=== PATIENT | male | born 2000 | race Caucasian/White ===

== ENCOUNTER 2023-07-04 17:56 | Emergency (ER) | payer OTHER, SELFPAY ==
--- OUTSIDE RECORDS SUMMARY | 2023-07-04 18:01 | XMS REPORT | Continuity of Care Document ---
:2000 Author Organization [facility] t Address [address] [place] [address] Care Team Providers Name Role Phone Cassie Joshi MD Primary Care Physician [phone] JM HOLLAND Attending Clinician Unavailable RADHA MIMS Attending Clinician Unavailable JACOB RICCI Attending Clinician Unavailable Radhames ACUTE SPECIALISTJacob Attending Clinician UNKNOWN, ATTENDING Attending Clinician Unavailable CASSIE JOSHI Attending Clinician Unavailable Radha Fuentes Attending Clinician JAYLIN MCCLENDON Attending Clinician Unavailable Jaylin Mcclendon PA-C Attending Clinician Unknown, Attending Attending Clinician Unavailable REEMA TEIXEIRA Attending Clinician Unavailable Reema Teixeira MD Attending Clinician [facility] [place] Attending Clinician 2, [facility] Attending Clinician Unavailable Nurse, [facility] Attending Clinician Unavailable Doctor Unassigned, [place] Attending Clinician Unavailable CHRISTINA ESTRELLA Attending Clinician Unavailable Christina Estrella MD Attending Clinician Misael Thornton RN Attending Clinician Unavailable ZAKIA PARKER Attending Clinician Unavailable Zakia Parker MD Attending Clinician DESIRE LOWERY Attending Clinician Unavailable Desire Gross Attending Clinician [phone] FRANK ANDRES Attending Clinician Unavailable Frank Connors Attending Clinician King JET MD, James C Attending Clinician CASSIE MCCLELLAND III Attending Clinician Unavailable GABRIELA ESPINOZA Attending Clinician Unavailable DayGabriela Dowell Attending Clinician RADIOLOGY Attending Clinician Unavailable Radiology Attending Clinician Unavailable 1, [facility] Attending Clinician Unavailable Dereck Hernandez MD Attending Clinician Lab, [facility] [place] Attending Clinician Unavailable Cassie Joshi MD Attending Clinician KAYE WU Attending Clinician Unavailable Only, Adc Pob2 Test Attending Clinician Unavailable Kaye Wu MD Attending Clinician Bert Toscano DO Attending Clinician BERT TOSCANO Attending Clinician Unavailable CHRISTY ROMAN Attending Clinician Unavailable ABA MOSER Attending Clinician Unavailable DESIRE LOWERY Admitting Clinician Unavailable Payers Payer Name Policy Type Policy Number Effective Date Expiration Date S corrie [facility] [id number] 2021 00:00:00 [facility] [id number] 2018 CHOICE MEDICAID 00:00:00 Problems Condition Condition Condition Status Onset Resolution Last Treating Co mments Source Name Details Category Date Date Treatment Clinician Date No known No known Disease Unive rs active active ity of problems problems [facility] [place] [facility] Allergies, Adverse Reactions, Alerts Allergy Allergy Status Severity Reaction(s) Onset Inactive Treating Comm ents Source Name Type Date Date Clinician EGG DRUG Active High Hives Univers INGREDI 10-13 ity of 00:00: [place] [facility] PEANUT DRUG Active High Anaphylaxis Unive rs INGREDI 10-13 ity of 00:00: [place] [address] [facility] Egg Propensi Active Hives Univers ty to 10-13 ity of adverse 00:00: reaction 00 Medical s Branch Peanut Propensi Active Anaphylaxis Uni vers ty to 10-13 ity of adverse 00:00: [place] reaction 00 [facility] Branch NO KNOWN Drug Active Univers ALLERGIE Class ity of S [facility] [place] [facility] Social History Social Habit Start Date Stop Date Quantity Comments Source History of tobacco Cigarette Smoker [place] of use [facility] [place] [facility] Gender identity [facility]it y [facility] Social 2023-02-22 2023-02-22 Univers ity of function 00:00:00 00:00:00 [facility] [place] [facility] Exposure to 2023-01-24 2023-02-03 Not sure [facility] SARS-CoV-2 (event) 00:00:00 16:14:00 [facility] [place] [facility] Alcohol intake 2021-04-30 2021-04-30 Ex-drinker [facility] 00:00:00 00:00:00 (finding) [facility] [place] [facility] Cigarettes smoked 2021-04-23 2021-04-23 [facility] it of current (pack per 00:00:00 00:00:00 [facility] ) - Reported Branch Tobacco use and 2021-04-23 2021-04-23 Smokeless Universit y of exposure 00:00:00 00:00:00 tobacco non-user [facility] Sex Assigned At [birth year] Universit y of 00:00:00 00:00:00 [facility] [place] [facility] Smoking Status Start Date Stop Date Source Smokes tobacco daily 2021-04-23 00:00:00 [facility] Medications Ordered Filled Start Stop Current Ordering Indication Dosage Frequency Signature Comments Components Source Medication Medication Date Date Medication? Clinician (SIG) Name Name methylPREDN Yes [id number] Take by Univers ISolone 03-19 mouth ity of (MEDROL, 00:00: SEE-INSTRU Jose Armando as MARTIN,) 4 mg 00 CTIONS. Medica l tablets follow Branch package directions methylPREDN 2022-0 Yes [id number] Take by Univers ISolone 03-19 mouth ity of (MEDROL, 00:00: SEE-INSTRU Jose Armando as MARTIN,) 4 mg 00 CTIONS. Medica l tablets follow Branch package directions methylPREDN 2022-0 Yes [id number] Take by Univers ISolone 03-19 mouth ity of (MEDROL, 00:00: SEE-INSTRU Jose Armando as MARTIN,) 4 mg 00 CTIONS. Medica l tablets follow Branch package directions amoxicillin 2022- No [id number] 1{tbl} Take 1 Univers -clavulanat 7-07 07-18 tablet by it y of e 00:00: 04:59 mouth in [place] (AUGMENTIN) 00 :00 the Medical 875-125 mg morning Branch per tablet and 1 tablet in the evening. Do all this for 10 days. amoxicillin 2022-0 2022- No [id number] 1{tbl} Take 1 Univers -clavulanat 7-07 07-18 tablet by it y of e 00:00: 04:59 mouth in [place] (AUGMENTIN) 00 :00 the Medical 875-125 mg morning Branch per tablet and 1 tablet in the evening. Do all this for 10 days. busPIRone 5 2022-0 Yes [id number] 5mg Take 1 Univers mg tablet 6-12 tablet by ity o f 00:00: mouth (two) Medical times Branch daily as needed for Other (anxiety). busPIRone 5 2022-0 Yes [id number] 5mg Take 1 Univers mg tablet 6-12 tablet by ity o f 00:00: mouth (two) Medical times Branch daily as needed for Other (anxiety). busPIRone 5 2022-0 Yes [id number] 5mg Take 1 Univers mg tablet 6-12 tablet by ity o f 00:00: mouth (two) Medical times Branch daily as needed for Other (anxiety). busPIRone 5 2022-0 Yes [id number] 5mg Take 1 Univers mg tablet 6-12 tablet by ity o f 00:00: mouth (two) Medical times Branch daily as needed for Other (anxiety). busPIRone 5 2022-0 Yes [id number] 5mg Take 1 Univers mg tablet 6-12 tablet by ity o f 00:00: mouth (two) Medical times Branch daily as needed for Other (anxiety). busPIRone 5 2022-0 Yes [id number] 5mg Take 1 Univers mg tablet 6-12 tablet by ity o f 00:00: mouth (two) Medical times Branch daily as needed for Other (anxiety). busPIRone 5 2022-0 Yes [id number] 5mg Take 1 Univers mg tablet 6-12 tablet by ity o f 00:00: mouth 2 [place] 00 (two) Medical times Branch daily as needed for Other (anxiety). nicotine 2022- No [id number] 1{patch Apply 1 Univers mg/24 hr 6-12 07-13 } Patch to ity of patch 00:00: 04:59 area(s) [place] 00 :00 every 24 Medical (twenty-fo Branch ur) hours for 30 days. nicotine 14 2022- No [id number] 1{patch Apply 1 Univers mg/24 hr 6-12 07-13 } Patch to ity of patch 00:00: 04:59 area(s) [place] 00 :00 every 24 Medical (twenty-fo Branch ur) hours for 30 days. nicotine 7 2022- No [id number] 1{patch Apply 1 Univers mg/24 hr 6-12 07-13 } Patch to ity of patch 00:00: 04:59 area(s) [place] 00 :00 every 24 Medical (twenty-fo Branch ur) hours for 30 days. nicotine 2022- No [id number] 1{patch Apply 1 Univers mg/24 hr 6-12 07-13 } Patch to ity of patch 00:00: 04:59 area(s) [place] 00 :00 every 24 Medical (twenty-fo Branch ur) hours for 30 days. nicotine No [id number] 1{patch Apply 1 Univers mg/24 hr 6-12 07-13 } Patch to ity of patch 00:00: 04:59 area(s) [place] 00 :00 every 24 Medical (twenty-fo Branch ur) hours for 30 days. nicotine 2022- No [id number] 1{patch Apply 1 Univers mg/24 hr 6-12 07-13 } Patch to ity of patch 00:00: 04:59 area(s) [place] 00 :00 every 24 Medical (twenty-fo Branch ur) hours for 30 days. nicotine 2022- No [id number] 1{patch Apply 1 Univers mg/24 hr 6-12 07-13 } Patch to ity of patch 00:00: 04:59 area(s) [place] 00 :00 every 24 Medical (twenty-fo Branch ur) hours for 30 days. nicotine 14 2022- No [id number] 1{patch Apply 1 Univers mg/24 hr 6-12 07-13 } Patch to ity of patch 00:00: 04:59 area(s) [place] 00 :00 every 24 Medical (twenty-fo Branch ur) hours for 30 days. nicotine 7 2022- No [id number] 1{patch Apply 1 Univers mg/24 hr 6-12 07-13 } Patch to ity of patch 00:00: 04:59 area(s) [place] 00 :00 every 24 Medical (twenty-fo Branch ur) hours for 30 days. nicotine 2022- No [id number] 1{patch Apply 1 Univers mg/24 hr 6-12 07-13 } Patch to ity of patch 00:00: 04:59 area(s) [place] 00 :00 every 24 Medical (twenty-fo Branch ur) hours for 30 days. nicotine 14 2022- No [id number] 1{patch Apply 1 Univers mg/24 hr 6-12 07-13 } Patch to ity of patch 00:00: 04:59 area(s) [place] 00 :00 every 24 Medical (twenty-fo Branch ur) hours for 30 days. nicotine 7 No [id number] 1{patch Apply 1 Univers mg/24 hr 6-12 07-13 } Patch to ity of patch 00:00: 04:59 area(s) [place] 00 :00 every 24 Medical (twenty-fo Branch ur) hours for 30 days. nicotine 2022- No [id number] 1{patch Apply 1 Univers mg/24 hr 6-12 07-13 } Patch to ity of patch 00:00: 04:59 area(s) [place] 00 :00 every 24 Medical (twenty-fo Branch ur) hours for 30 days. nicotine 14 2022- No [id number] 1{patch Apply 1 Univers mg/24 hr 6-12 07-13 } Patch to ity of patch 00:00: 04:59 area(s) [place] 00 :00 every 24 Medical (twenty-fo Branch ur) hours for 30 days. nicotine 7 2022- No [id number] 1{patch Apply 1 Univers mg/24 hr 6-12 07-13 } Patch to ity of patch 00:00: 04:59 area(s) [place] 00 :00 every 24 Medical (twenty-fo Branch ur) hours for 30 days. nicotine 21 2022- No [id number] 1{patch Apply 1 Univers mg/24 hr 02-22-13 } Patch to ity of patch 00:00: 04:59 area(s) [place] 00 :00 every 24 Medical (twenty-fo Branch ur) hours for 30 days. nicotine 14 2022-2022- No [id number] 1{patch Apply 1 Univers mg/24 hr 02-22-13 } Patch to ity of patch 00:00: 04:59 area(s) [place] 00 :00 every 24 Medical (twenty-fo Branch ur) hours for 30 days. nicotine 7 2022-2022- No [id number] 1{patch Apply 1 Univers mg/24 hr 02-22-13 } Patch to ity of patch 00:00: 04:59 area(s) [place] 00 :00 every 24 Medical (twenty-fo Branch ur) hours for 30 days. buPROPion 2022-2022- No [id number] 150mg Take 1 Univers SR 5-26 08-25 tablet by ity of (WELLBUTRIN 00:00: 04:59 mouth in [place] SR) 150 mg 00 :00 the Medical SR tablet morning Branch and 1 tablet in the evening. Do all this for 90 days. buPROPion 2022-2022- No [id number] 150mg Take 1 Univers SR 5-26 08-25 tablet by ity of (WELLBUTRIN 00:00: 04:59 mouth in [place] SR) 150 mg 00 :00 the Medical SR tablet morning Branch and 1 tablet in the evening. Do all this for 90 days. buPROPion 2022-0 2022- No [id number] 150mg Take 1 Univers SR 5-26 08-25 tablet by ity of (WELLBUTRIN 00:00: 04:59 mouth in [place] SR) 150 mg 00 :00 the Medical SR tablet morning Branch and 1 tablet in the evening. Do all this for 90 days. buPROPion 2022-0 2022- No [id number] 150mg Take 1 Univers SR 5-26 08-25 tablet by ity of (WELLBUTRIN 00:00: 04:59 mouth in [place] SR) 150 mg 00 :00 the Medical SR tablet morning Branch and 1 tablet in the evening. Do all this for 90 days. buPROPion 2022-0 2022- No [id number] 150mg Take 1 Univers SR 5-26 08-25 tablet by ity of (WELLBUTRIN 00:00: 04:59 mouth in [place] SR) 150 mg 00 :00 the Medical SR tablet morning Branch and 1 tablet in the evening. Do all this for 90 days. buPROPion 2022-0 2022- No [id number] 150mg Take 1 Univers SR 5-26 08-25 tablet by ity of (WELLBUTRIN 00:00: 04:59 mouth in [place] SR) 150 mg 00 :00 the Medical SR tablet morning Branch and 1 tablet in the evening. Do all this for 90 days. buPROPion 2022-0 2022- No [id number] 150mg Take 1 Univers SR 5-26 08-25 tablet by ity of (WELLBUTRIN 00:00: 04:59 mouth in [place] SR) 150 mg 00 :00 the Medical SR tablet morning Branch and 1 tablet in the evening. Do all this for 90 days. buPROPion 2022-0 2022- No [id number] 150mg Take 1 Univers SR 5-26 06-12 tablet by ity of (WELLBUTRIN 00:00: 00:00 mouth in [place] SR) 150 mg 00 :00 the Medical SR tablet morning Branch and 1 tablet in the evening. Do all this for 90 days. buPROPion 2022-0 2022- No [id number] 150mg Take 1 Univers SR 5-26 06-12 tablet by ity of (WELLBUTRIN 00:00: 00:00 mouth in [place] SR) 150 mg 00 :00 the Medical SR tablet morning Branch and 1 tablet in the evening. Do all this for 90 days. albuterol Yes [id number] 2{puff} Inhale 2 Univers 90 5-25 Puffs ity of mcg/actuati 00:00: every 6 Jose Armando as on inhaler 00 (six) Medical hours as Branch needed for Wheezing or Shortness of Breath. albuterol Yes [id number] 2{puff} Inhale 2 Univers 90 5-25 Puffs ity of mcg/actuati 00:00: every 6 Jose Armando as on inhaler 00 (six) Medical hours as Branch needed for Wheezing or Shortness of Breath. albuterol Yes [id number] 2{puff} Inhale 2 Univers 90 5-25 Puffs ity of mcg/actuati 00:00: every 6 Jose Armando as on inhaler 00 (six) Medical hours as Branch needed for Wheezing or Shortness of Breath. albuterol Yes [id number] 2{puff} Inhale 2 Univers 90 5-25 Puffs ity of mcg/actuati 00:00: every 6 Jose Armando as on inhaler 00 (six) Medical hours as Branch needed for Wheezing or Shortness of Breath. albuterol Yes [id number] 2{puff} Inhale 2 Univers 90 5-25 Puffs ity of mcg/actuati 00:00: every 6 Jose Armando as on inhaler 00 (six) Medical hours as Branch needed for Wheezing or Shortness of Breath. albuterol Yes [id number] 2{puff} Inhale 2 Univers 90 5-25 Puffs ity of mcg/actuati 00:00: every 6 Jose Armando as on inhaler 00 (six) Medical hours as Branch needed for Wheezing or Shortness of Breath. albuterol Yes [id number] 2{puff} Inhale 2 Univers 90 5-25 Puffs ity of mcg/actuati 00:00: every 6 Jose Armando as on inhaler 00 (six) Medical hours as Branch needed for Wheezing or Shortness of Breath. albuterol Yes [id number] 2{puff} Inhale 2 Univers 90 5-25 Puffs ity of mcg/actuati 00:00: every 6 Jose Armando as on inhaler 00 (six) Medical hours as Branch needed for Wheezing or Shortness of Breath. albuterol Yes [id number] 2{puff} Inhale 2 Univers 90 5-25 Puffs ity of mcg/actuati 00:00: every 6 Jose Armando as on inhaler 00 (six) Medical hours as Branch needed for Wheezing or Shortness of Breath. albuterol Yes [id number] 2{puff} Inhale 2 Univers 90 5-25 Puffs ity of mcg/actuati 00:00: every 6 Jose Armando as on inhaler 00 (six) Medical hours as Branch needed for Wheezing or Shortness of Breath. albuterol Yes [id number] 2{puff} Inhale 2 Univers 90 5-25 Puffs ity of mcg/actuati 00:00: every 6 Jose Armando as on inhaler 00 (six) Medical hours as Branch needed for Wheezing or Shortness of Breath. albuterol Yes [id number] 2{puff} Inhale 2 Univers 90 5-25 Puffs ity of mcg/actuati 00:00: every 6 Jose Armando as on inhaler 00 (six) Medical hours as Branch needed for Wheezing or Shortness of Breath. albuterol Yes [id number] 2{puff} Inhale 2 Univers 90 5-25 Puffs ity of mcg/actuati 00:00: every 6 Jose Armando as on inhaler 00 (six) Medical hours as Branch needed for Wheezing or Shortness of Breath. albuterol Yes [id number] 2{puff} Inhale 2 Univers 90 5-25 Puffs ity of mcg/actuati 00:00: every 6 Jose Armando as on inhaler 00 (six) Medical hours as Branch needed for Wheezing or Shortness of Breath. albuterol Yes [id number] 2{puff} Inhale 2 Univers 90 5-25 Puffs ity of mcg/actuati 00:00: every 6 Jose Armando as on inhaler 00 (six) Medical hours as Branch needed for Wheezing or Shortness of Breath. albuterol Yes [id number] 2{puff} Inhale 2 Univers 90 5-25 Puffs ity of mcg/actuati 00:00: every 6 Jose Armando as on inhaler 00 (six) Medical hours as Branch needed for Wheezing or Shortness of Breath. omeprazole Yes TAKE 1 Unive rs 40 mg 5-04 CAPSULE BY ity of capsule 00:00: MOUTH ONCE [place] DAILY, DO Medical NOT CRUSH Branch OR CHEW omeprazole Yes TAKE 1 Unive rs 40 mg 5-04 CAPSULE BY ity of capsule 00:00: MOUTH ONCE [place] 00 DAILY, DO Medical NOT CRUSH Branch OR CHEW omeprazole Yes TAKE 1 Unive rs 40 mg 5-04 CAPSULE BY ity of capsule 00:00: MOUTH ONCE [place] 00 DAILY, DO Medical NOT CRUSH Branch OR CHEW azelastine Yes [id number] 1{spray Use 1 Univers 137 mcg 2-13 } [place] in ity of (0.1 %) 00:00: each [place] nasal spray 00 nostril in Me dical the Branch morning and 1 [place] in the evening. Use in each nostril as directed fluticasone 2022-0 Yes [id number] 1{spray Use 1 Univers propionate 2-13 } [place] in ity o f 50 00:00: each [place] mcg/actuati 00 nostril in Me dical on nasal the Branch spray morning. ibuprofen 2022-0 Yes [id number] 600mg Take 1 U nivers 600 mg 2-13 tablet by ity of tablet 00:00: mouth [place] 00 every 6 Medical (six) Branch hours as needed for Pain (scale 4-6) or Pain (scale 1-3). maalox/diph 2022-0 Yes [id number] 5mL Take 5 mL Univers enhydrAMINE 2-13 by mouth 3 it y of :lidocaine2 00:00: (three) Jose Armando as % viscous 00 times Medical 1:1:1 Susp daily as Branc h suspension needed (gargle and spit). azelastine 2022-0 Yes [id number] 1{spray Use 1 Univers 137 mcg 2-13 } [place] in ity of (0.1 %) 00:00: each [place] nasal spray 00 nostril in Mn dical the Branch morning and 1 [place] in the evening. Use in each nostril as directed fluticasone 2022-0 Yes [id number] 1{spray Use 1 Univers propionate 2-13 } [place] in ity o f 50 00:00: each [place] mcg/actuati 00 nostril in Mn dical on nasal the Branch spray morning. ibuprofen 2022-0 Yes [id number] 600mg Take 1 U nivers 600 mg 2-13 tablet by ity of tablet 00:00: mouth [place] 00 every 6 Medical (six) Branch hours as needed for Pain (scale 4-6) or Pain (scale 1-3). maalox/diph 2022-0 Yes [id number] 5mL Take 5 mL Univers enhydrAMINE 2-13 by mouth 3 it y of :lidocaine2 00:00: (three) Jose Armando as % viscous 00 times Medical 1:1:1 Susp daily as Branc h suspension needed (gargle and spit). azelastine 2023-0 Yes [id number] 1{spray Use 1 Univers 137 mcg 2-13 } [place] in ity of (0.1 %) 00:00: each [place] nasal spray 00 nostril in Mn dical the Branch morning and 1 [place] in the evening. Use in each nostril as directed fluticasone 0 Yes [id number] 1{spray Use 1 Univers propionate 2-13 } [place] in ity o f 50 00:00: each [place] mcg/actuati 00 nostril in Mn dical on nasal the Branch spray morning. ibuprofen 0 Yes [id number] 600mg Take 1 U nivers 600 mg 2-13 tablet by ity of tablet 00:00: mouth [place] 00 every 6 Medical (six) Branch hours as needed for Pain (scale 4-6) or Pain (scale 1-3). maalox/diph 0 Yes [id number] 5mL Take 5 mL Univers enhydrAMINE 2-13 by mouth 3 it y of :lidocaine2 00:00: (three) Jose Armando as % viscous 00 times Medical 1:1:1 Susp daily as Branc h suspension needed (gargle and spit). azelastine Yes [id number] 1{spray Use 1 Univers 137 mcg 2-13 } [place] in ity of (0.1 %) 00:00: each [place] nasal spray 00 nostril in Mn dical the Branch morning and 1 [place] in the evening. Use in each nostril as directed fluticasone Yes [id number] 1{spray Use 1 Univers propionate 2-13 } [place] in ity o f 50 00:00: each [place] mcg/actuati 00 nostril in Mn dical on nasal the Branch spray morning. ibuprofen 0 Yes [id number] 600mg Take 1 U nivers 600 mg 2-13 tablet by ity of tablet 00:00: mouth [place] 00 every 6 Medical (six) Branch hours as needed for Pain (scale 4-6) or Pain (scale 1-3). maalox/diph 2022-0 Yes [id number] 5mL Take 5 mL Univers enhydrAMINE 2-13 by mouth 3 it y of :lidocaine2 00:00: (three) Jose Armando as % viscous 00 times Medical 1:1:1 Susp daily as Branc h suspension needed (gargle and spit). azelastine 2022-0 Yes [id number] 1{spray Use 1 Univers 137 mcg 2-13 } [place] in ity of (0.1 %) 00:00: each [place] nasal spray 00 nostril in Me dical the Branch morning and 1 [place] in the evening. Use in each nostril as directed fluticasone 2022-0 Yes [id number] 1{spray Use 1 Univers propionate 2-13 } [place] in ity o f 50 00:00: each [place] mcg/actuati 00 nostril in Me dical on nasal the Branch spray morning. ibuprofen 2022-0 Yes [id number] 600mg Take 1 U nivers 600 mg 2-13 tablet by ity of tablet 00:00: mouth [place] 00 every 6 Medical (six) Branch hours as needed for Pain (scale 4-6) or Pain (scale 1-3). maalox/diph 2022-0 Yes [id number] 5mL Take 5 mL Univers enhydrAMINE 2-13 by mouth 3 it y of :lidocaine2 00:00: (three) Jose Armando as % viscous 00 times Medical 1:1:1 Susp daily as Branc h suspension needed (gargle and spit). azelastine 2022-0 Yes [id number] 1{spray Use 1 Univers 137 mcg 2-13 } [place] in ity of (0.1 %) 00:00: each [place] nasal spray 00 nostril in Mn dical the Branch morning and 1 [place] in the evening. Use in each nostril as directed fluticasone 2022-0 Yes [id number] 1{spray Use 1 Univers propionate 2-13 } [place] in ity o f 50 00:00: each [place] mcg/actuati 00 nostril in Mn dical on nasal the Branch spray morning. ibuprofen 2022-0 Yes [id number] 600mg Take 1 U nivers 600 mg 2-13 tablet by ity of tablet 00:00: mouth [place] 00 every 6 Medical (six) Branch hours as needed for Pain (scale 4-6) or Pain (scale 1-3). maalox/diph 2022-0 Yes [id number] 5mL Take 5 mL Univers enhydrAMINE 2-13 by mouth 3 it y of :lidocaine2 00:00: (three) Jose Armando as % viscous 00 times Medical 1:1:1 Susp daily as Branc h suspension needed (gargle and spit). azelastine 2022-0 Yes [id number] 1{spray Use 1 Univers 137 mcg 2-13 } [place] in ity of (0.1 %) 00:00: each [place] nasal spray 00 nostril in Me dical the Branch morning and 1 [place] in the evening. Use in each nostril as directed fluticasone 2022-0 Yes [id number] 1{spray Use 1 Univers propionate 2-13 } [place] in ity o f 50 00:00: each [place] mcg/actuati 00 nostril in Me dical on nasal the Branch spray morning. ibuprofen 2022-0 Yes [id number] 600mg Take 1 U nivers 600 mg 2-13 tablet by ity of tablet 00:00: mouth [place] 00 every 6 Medical (six) Branch hours as needed for Pain (scale 4-6) or Pain (scale 1-3). maalox/diph 2022-0 Yes [id number] 5mL Take 5 mL Univers enhydrAMINE 2-13 by mouth 3 it y of :lidocaine2 00:00: (three) Jose Armando as % viscous 00 times Medical 1:1:1 Susp daily as Branc h suspension needed (gargle and spit). azelastine 2022-0 Yes [id number] 1{spray Use 1 Univers 137 mcg 2-13 } [place] in ity of (0.1 %) 00:00: each [place] nasal spray 00 nostril in Me dical the Branch morning and 1 [place] in the evening. Use in each nostril as directed fluticasone 2022-0 Yes [id number] 1{spray Use 1 Univers propionate 2-13 } [place] in ity o f 50 00:00: each [place] mcg/actuati 00 nostril in Me dical on nasal the Branch spray morning. ibuprofen 2022-0 Yes [id number] 600mg Take 1 U nivers 600 mg 2-13 tablet by ity of tablet 00:00: mouth [place] 00 every 6 Medical (six) Branch hours as needed for Pain (scale 4-6) or Pain (scale 1-3). maalox/diph 2023-0 Yes [id number] 5mL Take 5 mL Univers enhydrAMINE 2-13 by mouth 3 it y of :lidocaine2 00:00: (three) Jose Armando as % viscous 00 times Medical 1:1:1 Susp daily as Branc h suspension needed (gargle and spit). azelastine Yes [id number] 1{spray Use 1 Univers 137 mcg 2-13 } [place] in ity of (0.1 %) 00:00: each [place] nasal spray 00 nostril in Me dical the Branch morning and 1 [place] in the evening. Use in each nostril as directed fluticasone 0 Yes [id number] 1{spray Use 1 Univers propionate 2-13 } [place] in ity o f 50 00:00: each [place] mcg/actuati 00 nostril in Me dical on nasal the Branch spray morning. ibuprofen Yes [id number] 600mg Take 1 U nivers 600 mg 2-13 tablet by ity of tablet 00:00: mouth [place] 00 every 6 Medical (six) Branch hours as needed for Pain (scale 4-6) or Pain (scale 1-3). maalox/diph Yes [id number] 5mL Take 5 mL Univers enhydrAMINE 2-13 by mouth 3 it y of :lidocaine2 00:00: (three) Jose Armando as % viscous 00 times Medical 1:1:1 Susp daily as Branc h suspension needed (gargle and spit). azelastine 2022- No [id number] 1{spray Use 1 Univers 137 mcg 2-13 05-25 } [place] in ity of (0.1 %) 00:00: 00:00 each [place] nasal spray 00 :00 nostril in Me dical the Branch morning and 1 [place] in the evening. Use in each nostril as directed fluticasone 0 202- No [id number] 1{spray Use 1 Univers propionate 2-13 05-25 } [place] in ity of 50 00:00: 00:00 each [place] mcg/actuati 00 :00 nostril in Me dical on nasal the Branch spray morning. ibuprofen 0 3- No [id number] 600mg Take 1 [facility] 600 mg 2-13 05-25 tablet by ity of tablet 00:00: 00:00 mouth [place] 00 :00 every 6 Medical (six) Branch hours as needed for Pain (scale 4-6) or Pain (scale 1-3). maalox/diph 2022- No [id number] 5mL Take 5 mL [facility] enhydrAMINE 2 05-25 by mouth 3 i ty of :lidocaine2 00:00: 00:00 (three) [place] % viscous 00 :00 times Medical 1:1:1 Susp daily as Branc h suspension needed (gargle and spit). azelastine 2022- No [id number] 1{spray Use 1 [facility] 137 mcg 10-2625 } [place] in ity of (0.1 %) 00:00: 00:00 each [place] nasal spray 00 :00 nostril in Mn dical the Branch morning and 1 [place] in the evening. Use in each nostril as directed fluticasone 2022- No [id number] 1{spray Use 1 [facility] propionate 10-2625 } [place] in ity of 50 00:00: 00:00 each [place] mcg/actuati 00 :00 nostril in Mn dical on nasal the Branch spray morning. ibuprofen 2022- No [id number] 600mg Take 1 [facility] 600 mg 10-26-25 tablet by ity of tablet 00:00: 00:00 mouth [place] 00 :00 every 6 Medical (six) Branch hours as needed for Pain (scale 4-6) or Pain (scale 1-3). maalox/diph 2022- No [id number] 5mL Take 5 mL [facility] enhydrAMINE 10-26-25 by mouth 3 i ty of :lidocaine2 00:00: 00:00 (three) [place] % viscous 00 :00 times Medical 1:1:1 Susp daily as Branc h suspension needed (gargle and spit). meloxicam 2022- No [id number] 15mg Take 1 [facility] 15 mg 10-13 tablet by ity of tablet 00:00: 05:59 mouth in [place] 00 :00 the Medical morning Branch for 30 days. methocarbam 2022- No [id number] 500mg Take 1 [facility] oL 500 mg 10-13 tablet by ity of tablet 00:00: 05:59 mouth [place] 00 :00 every Medical evening Branch for 30 days. meloxicam 2022-2022- No [id number] 15mg Take 1 [facility] 15 mg 10-13- tablet by ity of tablet 00:00: 05:59 mouth in [place] 00 :00 the Medical morning Branch for 30 days. methocarbam 2023-0 2022- No [id number] 500mg Take 1 [facility] oL 500 mg 10-13 tablet by ity of tablet 00:00: 05:59 mouth [place] 00 :00 every Medical evening Branch for 30 days. meloxicam 3-0 2022- No [id number] 15mg Take 1 [facility] 15 mg 10-13- tablet by ity of tablet 00:00: 05:59 mouth in [place] 00 :00 the Medical morning Branch for 30 days. methocarbam 3-0 2022- No [id number] 500mg Take 1 [facility] oL 500 mg 10-13 tablet by ity of tablet 00:00: 05:59 mouth [place] 00 :00 every Medical evening Branch for 30 days. meloxicam 3-0 2022- No [id number] 15mg Take 1 [facility] 15 mg 10-13 tablet by ity of tablet 00:00: 05:59 mouth in [place] 00 :00 the Medical morning Branch for 30 days. methocarbam 2022-0 2022- No [id number] 500mg Take 1 [facility] oL 500 mg 10-13 tablet by ity of tablet 00:00: 05:59 mouth [place] 00 :00 every Medical evening Branch for 30 days. meloxicam 3-0 2022- No [id number] 15mg Take 1 [facility] 15 mg 10-13 tablet by ity of tablet 00:00: 05:59 mouth in [place] 00 :00 the Medical morning Branch for 30 days. methocarbam 3-0 2022- No [id number] 500mg Take 1 [facility] oL 500 mg 10-13 tablet by ity of tablet 00:00: 05:59 mouth [place] 00 :00 every Medical evening Branch for 30 days. meloxicam 2023-0 2022- No [id number] 15mg Take 1 [facility] 15 mg 10-13 tablet by ity of tablet 00:00: 05:59 mouth in [place] 00 :00 the Medical morning Branch for 30 days. methocarbam 2023-0 2023- No [id number] 500mg Take 1 [facility] oL 500 mg 10-13- tablet by ity of tablet 00:00: 05:59 mouth [place] 00 :00 every Medical evening Branch for 30 days. meloxicam 2023-0 202- No [id number] 15mg Take 1 [facility] 15 mg 10-13- tablet by ity of tablet 00:00: 05:59 mouth in [place] 00 :00 the Medical morning Branch for 30 days. methocarbam 2023-0 2022- No [id number] 500mg Take 1 [facility] oL 500 mg 10-13- tablet by ity of tablet 00:00: 05:59 mouth [place] 00 :00 every Medical evening Branch for 30 days. meloxicam 202-0 2022- No [id number] 15mg Take 1 [facility] 15 mg 10-13 tablet by ity of tablet 00:00: 05:59 mouth in [place] 00 :00 the Medical morning Branch for 30 days. methocarbam 2022-0 2022- No [id number] 500mg Take 1 [facility] oL 500 mg 10-13 tablet by ity of tablet 00:00: 05:59 mouth [place] 00 :00 every Medical evening Branch for 30 days. meloxicam 2022-0 2022- No [id number] 15mg Take 1 [facility] 15 mg 10-13 tablet by ity of tablet 00:00: 05:59 mouth in [place] 00 :00 the Medical morning Branch for 30 days. methocarbam 3-0 2022- No [id number] 500mg Take 1 [facility] oL 500 mg 10-13 tablet by ity of tablet 00:00: 05:59 mouth [place] 00 :00 every Medical evening Branch for 30 days. meloxicam 2022-0 2022- No [id number] 15mg Take 1 [facility] 15 mg 10-13- tablet by ity of tablet 00:00: 05:59 mouth in [place] 00 :00 the Medical morning Branch for 30 days. methocarbam 2023-0 2022- No [id number] 500mg Take 1 [facility] oL 500 mg 10-13 tablet by ity of tablet 00:00: 05:59 mouth [place] 00 :00 every Medical evening Branch for 30 days. meloxicam 2023-0 2023- No [id number] 15mg Take 1 [facility] 15 mg 10-13 tablet by ity of tablet 00:00: 05:59 mouth in [place] 00 :00 the Medical morning Branch for 30 days. methocarbam 2023-0 2022- No [id number] 500mg Take 1 [facility] oL 500 mg 10-13 tablet by ity of tablet 00:00: 05:59 mouth [place] 00 :00 every Medical evening Branch for 30 days. meloxicam 2023-0 2022- No [id number] 15mg Take 1 [facility] 15 mg 10-13 tablet by ity of tablet 00:00: 05:59 mouth in [place] 00 :00 the Medical morning Branch for 30 days. methocarbam 2022-0 2022- No [id number] 500mg Take 1 [facility] oL 500 mg 10-13 tablet by ity of tablet 00:00: 05:59 mouth [place] 00 :00 every Medical evening Branch for 30 days. pantoprazol 2023-0 Yes [id number] 40mg Take 1 [facility] e 40 mg EC 1-04 tablet by ity of tablet 00:00: mouth in [place] 00 the Medical morning Branch and 1 tablet in the evening. ondansetron 2023-0 Yes [id number] 4mg Take 1 [facility] 4 mg tablet 1-04 tablet by ity of 00:00: mouth [place] 00 every 8 Medical (eight) Branch hours as needed for Nausea and Vomiting (N/V). pantoprazol 2023-0 Yes [id number] 40mg Take 1 [facility] e 40 mg EC 1-04 tablet by ity of tablet 00:00: mouth in [place] 00 the Medical morning Branch and 1 tablet in the evening. ondansetron 2023-0 Yes [id number] 4mg Take 1 [facility] 4 mg tablet 1-04 tablet by ity of 00:00: mouth [place] 00 every 8 Medical (eight) Branch hours as needed for Nausea and Vomiting (N/V). pantoprazol 2023-0 Yes [id number] 40mg Take 1 [facility] e 40 mg EC 1-04 tablet by ity of tablet 00:00: mouth in [place] 00 the Medical morning Branch and 1 tablet in the evening. ondansetron 2023-0 Yes [id number] 4mg Take 1 [facility] 4 mg tablet 1-04 tablet by ity of 00:00: mouth [place] 00 every 8 Medical (eight) Branch hours as needed for Nausea and Vomiting (N/V). pantoprazol 2023-0 Yes [id number] 40mg Take 1 [facility] e 40 mg EC 1-04 tablet by ity of tablet 00:00: mouth in [place] 00 the Medical morning Branch and 1 tablet in the evening. ondansetron 2023-0 Yes [id number] 4mg Take 1 [facility] 4 mg tablet 1-04 tablet by ity of 00:00: mouth [place] 00 every 8 Medical (eight) Branch hours as needed for Nausea and Vomiting (N/V). pantoprazol 2023-0 Yes [id number] 40mg Take 1 [facility] e 40 mg EC 1-04 tablet by ity of tablet 00:00: mouth in [place] 00 the Medical morning Branch and 1 tablet in the evening. ondansetron 2023-0 Yes [id number] 4mg Take 1 [facility] 4 mg tablet 1-04 tablet by ity of 00:00: mouth [place] 00 every 8 Medical (eight) Branch hours as needed for Nausea and Vomiting (N/V). pantoprazol 2023-0 Yes [id number] 40mg Take 1 [facility] e 40 mg EC 1-04 tablet by ity of tablet 00:00: mouth in [place] 00 the Medical morning Branch and 1 tablet in the evening. ondansetron 2023-0 Yes [id number] 4mg Take 1 [facility] 4 mg tablet 1-04 tablet by ity of 00:00: mouth [place] 00 every 8 Medical (eight) Branch hours as needed for Nausea and Vomiting (N/V). pantoprazol 2023-0 Yes [id number] 40mg Take 1 [facility] e 40 mg EC 1-04 tablet by ity of tablet 00:00: mouth in [place] 00 the Medical morning Branch and 1 tablet in the evening. ondansetron 2023-0 Yes [id number] 4mg Take 1 [facility] 4 mg tablet 1-04 tablet by ity of 00:00: mouth [place] 00 every 8 Medical (eight) Branch hours as needed for Nausea and Vomiting (N/V). pantoprazol 2023-0 Yes [id number] 40mg Take 1 [facility] e 40 mg EC 1-04 tablet by ity of tablet 00:00: mouth in [place] 00 the Medical morning Branch and 1 tablet in the evening. ondansetron 2023-0 Yes [id number] 4mg Take 1 [facility] 4 mg tablet 1-04 tablet by ity of 00:00: mouth [place] 00 every 8 Medical (eight) Branch hours as needed for Nausea and Vomiting (N/V). pantoprazol 2023-0 Yes [id number] 40mg Take 1 [facility] e 40 mg EC 1-04 tablet by ity of tablet 00:00: mouth in [place] 00 the Medical morning Branch and 1 tablet in the evening. ondansetron 2023-0 Yes [id number] 4mg Take 1 [facility] 4 mg tablet 1-04 tablet by ity of 00:00: mouth [place] 00 every 8 Medical (eight) Branch hours as needed for Nausea and Vomiting (N/V). pantoprazol 2023-0 Yes [id number] 40mg Take 1 [facility] e 40 mg EC 1-04 tablet by ity of tablet 00:00: mouth in [place] 00 the Medical morning Branch and 1 tablet in the evening. ondansetron 2023-0 Yes [id number] 4mg Take 1 [facility] 4 mg tablet 1-04 tablet by ity of 00:00: mouth [place] 00 every 8 Medical (eight) Branch hours as needed for Nausea and Vomiting (N/V). pantoprazol 2023-0 Yes [id number] 40mg Take 1 [facility] e 40 mg EC 1-04 tablet by ity of tablet 00:00: mouth in [place] 00 the Medical morning Branch and 1 tablet in the evening. ondansetron 2023-0 Yes [id number] 4mg Take 1 [facility] 4 mg tablet 1-04 tablet by ity of 00:00: mouth [place] 00 every 8 Medical (eight) Branch hours as needed for Nausea and Vomiting (N/V). pantoprazol 2023-0 Yes [id number] 40mg Take 1 [facility] e 40 mg EC 1-04 tablet by ity of tablet 00:00: mouth in [place] 00 the Medical morning Branch and 1 tablet in the evening. ondansetron 2023-0 Yes [id number] 4mg Take 1 [facility] 4 mg tablet 1-04 tablet by ity of 00:00: mouth [place] 00 every 8 Medical (eight) Branch hours as needed for Nausea and Vomiting (N/V). pantoprazol 2023-0 Yes [id number] 40mg Take 1 [facility] e 40 mg EC 1-04 tablet by ity of tablet 00:00: mouth in [place] 00 the Medical morning Branch and 1 tablet in the evening. ondansetron 2023-0 Yes [id number] 4mg Take 1 [facility] 4 mg tablet 1-04 tablet by ity of 00:00: mouth [place] 00 every 8 Medical (eight) Branch hours as needed for Nausea and Vomiting (N/V). pantoprazol 2023-0 Yes [id number] 40mg Take 1 [facility] e 40 mg EC 1-04 tablet by ity of tablet 00:00: mouth in [place] 00 the Medical morning Branch and 1 tablet in the evening. ondansetron 2023-0 Yes [id number] 4mg Take 1 [facility] 4 mg tablet 1-04 tablet by ity of 00:00: mouth [place] 00 every 8 Medical (eight) Branch hours as needed for Nausea and Vomiting (N/V). pantoprazol 2023-0 Yes [id number] 40mg Take 1 [facility] e 40 mg EC 1-04 tablet by ity of tablet 00:00: mouth in [place] 00 the Medical morning Branch and 1 tablet in the evening. ondansetron 2023-0 Yes [id number] 4mg Take 1 [facility] 4 mg tablet 1-04 tablet by ity of 00:00: mouth [place] 00 every 8 Medical (eight) Branch hours as needed for Nausea and Vomiting (N/V). pantoprazol 2023-0 Yes [id number] 40mg Take 1 [facility] e 40 mg EC 1-04 tablet by ity of tablet 00:00: mouth in [place] 00 the Medical morning Branch and 1 tablet in the evening. ondansetron 2023-0 Yes [id number] 4mg Take 1 [facility] 4 mg tablet 1-04 tablet by ity of 00:00: mouth [place] 00 every 8 Medical (eight) Branch hours as needed for Nausea and Vomiting (N/V). pantoprazol 2023-0 Yes [id number] 40mg Take 1 [facility] e 40 mg EC 1-04 tablet by ity of tablet 00:00: mouth in [place] 00 the Medical morning Branch and 1 tablet in the evening. ondansetron 2023-0 Yes [id number] 4mg Take 1 [facility] 4 mg tablet 1-04 tablet by ity of 00:00: mouth [place] 00 every 8 Medical (eight) Branch hours as needed for Nausea and Vomiting (N/V). pantoprazol 2023-0 2023- No [id number] 40mg Take 1 [facility] e 40 mg EC 1-04 05-25 tablet by ity of tablet 00:00: 00:00 mouth in [place] 00 :00 the Medical morning Branch and 1 tablet in the evening. ondansetron 2022- No [id number] 4mg Take 1 [facility] 4 mg tablet 09-16 tablet by it y of 00:00: 00:00 mouth [place] 00 :00 every 8 Medical (eight) Branch hours as needed for Nausea and Vomiting (N/V). pantoprazol 2022- No [id number] 40mg Take 1 [facility] e 40 mg EC 09-16 tablet by ity of tablet 00:00: 00:00 mouth in [place] 00 :00 the Medical morning Branch and 1 tablet in the evening. ondansetron 2022- No [id number] 4mg Take 1 [facility] 4 mg tablet 09-16 tablet by it y of 00:00: 00:00 mouth [place] 00 :00 every 8 Medical (eight) Branch hours as needed for Nausea and Vomiting (N/V). sulfamethox 2021-09- No [id number] 1{tbl} Take 1 [facility] azole-trime 1-13 11-21 tablet by it y of thoprim 00:00: 05:59 mouth in [place] (BACTRIM 00 :00 the Medical ) 800-160 morning Branc h mg per and 1 tablet tablet in the evening. Do all this for 7 days. sulfamethox 2021-09- No [id number] 1{tbl} Take 1 [facility] azole-trime 1-13 11-21 tablet by it y of thoprim 00:00: 05:59 mouth in [place] (BACTRIM 00 :00 the Medical ) 800-160 morning Branc h mg per and 1 tablet tablet in the evening. Do all this for 7 days. sulfamethox 2021-09- No [id number] 1{tbl} Take 1 [facility] azole-trime 1-13 11-21 tablet by it y of thoprim 00:00: 05:59 mouth in [place] (BACTRIM 00 :00 the Medical DS) 800-160 morning Branc h mg per and 1 tablet tablet in the evening. Do all this for 7 days. varenicline Yes [id number] 1mg Take 1 [facility] 1 mg tablet 8-23 tablet by ity of 00:00: mouth 2 [place] 00 (two) Medical times Branch daily. terbinafine Yes [id number] 250mg Take 1 [facility] HCL 250 mg 8-23 tablet by ity of tablet 00:00: mouth [place] 00 daily. Medical Branch varenicline Yes [id number] 1mg Take 1 [facility] 1 mg tablet 8-23 tablet by ity of 00:00: mouth 2 [place] 00 (two) Medical times Branch daily. terbinafine Yes [id number] 250mg Take 1 [facility] HCL 250 mg 8-23 tablet by ity of tablet 00:00: mouth [place] 00 daily. Medical Branch varenicline Yes [id number] 1mg Take 1 [facility] 1 mg tablet 8-23 tablet by ity of 00:00: mouth 2 [place] 00 (two) Medical times Branch daily. terbinafine Yes [id number] 250mg Take 1 [facility] HCL 250 mg 8-23 tablet by ity of tablet 00:00: mouth 00 daily. Medical Branch varenicline Yes [id number] 1mg Take 1 [facility] 1 mg tablet 8-23 tablet by ity of 00:00: mouth 2 [place] 00 (two) Medical times Branch daily. terbinafine Yes [id number] 250mg Take 1 [facility] HCL 250 mg 8-23 tablet by ity of tablet 00:00: mouth 00 daily. Medical Branch varenicline 2021- No [id number] 1mg Take 1 [facility] 1 mg tablet 8-06-08 tablet by it y of 00:00: 00:00 mouth 2 [place] 00 :00 (two) Medical times Branch daily. terbinafine 2021- No [id number] 250mg Take 1 [facility] HCL 250 mg 8-05 06- tablet by ity of tablet 00:00: 00:00 mouth [place] 00 :00 daily. Medical Branch varenicline 2021- No [id number] 1mg Take 1 [facility] 1 mg tablet 8-05 06- tablet by it y of 00:00: 00:00 mouth 2 [place] 00 :00 (two) Medical times Branch daily. terbinafine 2021- No [id number] 250mg Take 1 [facility] HCL 250 mg 8-23 - tablet by ity of tablet 00:00: 00:00 mouth [place] 00 :00 daily. Medical Branch busPIRone 5 Yes [id number] 5mg Take 1 [facility] mg tablet 8-18 tablet by ity o f 00:00: [facility] () Medical times Branch daily. varenicline Yes [id number] Take one [facility] (CHANTIX 8-18 0.5mg tab ity of STARTING 00:00: by mouth [place] MONTH ) 00 once daily Med ical 0.5 mg for 3 Branch (11)- 1 mg days, then (42) tablet one 0.5mg tab twice daily for 4 days, then one 1mg tab twice daily. busPIRone 5 Yes [id number] 5mg Take 1 [facility] mg tablet 8-18 tablet by ity o f 00:00: [facility] () Medical times Branch daily. busPIRone 5 Yes [id number] 5mg Take 1 [facility] mg tablet 8-18 tablet by ity o f 00:00: [facility] () Medical times Branch daily. busPIRone 5 Yes [id number] 5mg Take 1 [facility] mg tablet 8-18 tablet by ity o f 00:00: [facility] () Medical times Branch daily. busPIRone 5 Yes [id number] 5mg Take 1 [facility] mg tablet 8-18 tablet by ity o f 00:00: [facility] () Medical times Branch daily. busPIRone 5 Yes [id number] 5mg Take 1 [facility] mg tablet 8-18 tablet by ity o f 00:00: [facility] () Medical times Branch daily. busPIRone 5 Yes [id number] 5mg Take 1 [facility] mg tablet 8-18 tablet by ity o f 00:00: [facility] () Medical times Branch daily. busPIRone 5 0 Yes [id number] 5mg Take 1 [facility] mg tablet 8-18 tablet by ity o f 00:00: [facility] () Medical times Branch daily. busPIRone 5 Yes [id number] 5mg Take 1 [facility] mg tablet 8-18 tablet by ity o f 00:00: [facility] ([facility]) Medical times Branch daily. busPIRone 5 2021-0 Yes [id number] 5mg Take 1 [facility] mg tablet 8-18 tablet by ity o f 00:00: mouth (three) Medical times Branch daily. busPIRone 5 2020-0 Yes [id number] 5mg Take 1 [facility] mg tablet 8-18 tablet by ity o f 00:00: mouth (three) Medical times Branch daily. busPIRone 5 2020-0 Yes [id number] 5mg Take 1 [facility] mg tablet 8-18 tablet by ity o f 00:00: mouth (three) Medical times Branch daily. busPIRone 5 2020-0 Yes [id number] 5mg Take 1 [facility] mg tablet 8-18 tablet by ity o f 00:00: mouth (three) Medical times Branch daily. busPIRone 5 2020-0 Yes [id number] 5mg Take 1 [facility] mg tablet 8-18 tablet by ity o f 00:00: mouth (three) Medical times Branch daily. busPIRone 5 2020-0 Yes [id number] 5mg Take 1 [facility] mg tablet 8-18 tablet by ity o f 00:00: mouth () Medical times Branch daily. busPIRone 5 2020-0 Yes [id number] 5mg Take 1 [facility] mg tablet 8-18 tablet by ity o f 00:00: mouth (three) Medical times Branch daily. busPIRone 5 2020-0 Yes [id number] 5mg Take 1 [facility] mg tablet 8-18 tablet by ity o f 00:00: mouth (three) Medical times Branch daily. busPIRone 5 2020-0 Yes [id number] 5mg Take 1 [facility] mg tablet 8-18 tablet by ity o f 00:00: mouth (three) Medical times Branch daily. busPIRone 5 2020-0 Yes [id number] 5mg Take 1 [facility] mg tablet 8-18 tablet by ity o f 00:00: mouth (three) Medical times Branch daily. busPIRone 5 2020-0 Yes [id number] 5mg Take 1 [facility] mg tablet 8-18 tablet by ity o f 00:00: mouth (three) Medical times Branch daily. busPIRone 5 2021-0 Yes [id number] 5mg Take 1 [facility] mg tablet 8-18 tablet by ity o f 00:00: mouth (three) Medical times Branch daily. busPIRone 5 0 Yes [id number] 5mg Take 1 [facility] mg tablet 8-18 tablet by ity o f 00:00: mouth (three) Medical times Branch daily. busPIRone 5 0 Yes [id number] 5mg Take 1 [facility] mg tablet 8-18 tablet by ity o f 00:00: mouth () Medical times Branch daily. busPIRone 5 Yes [id number] 5mg Take 1 [facility] mg tablet 8-18 tablet by ity o f 00:00: mouth () Medical times Branch daily. busPIRone 5 Yes [id number] 5mg Take 1 [facility] mg tablet 8-18 tablet by ity o f 00:00: mouth () Medical times Branch daily. busPIRone 5 Yes [id number] 5mg Take 1 [facility] mg tablet 8-18 tablet by ity o f 00:00: mouth () Medical times Branch daily. busPIRone 5 Yes [id number] 5mg Take 1 [facility] mg tablet 8-18 tablet by ity o f 00:00: mouth (three) Medical times Branch daily. varenicline Yes [id number] Take one [facility] (CHANTIX 8-18 0.5mg tab ity of STARTING 00:00: by mouth [place] MONTH ) 00 once daily Med ical 0.5 mg for 3 Branch (11)- 1 mg days, then (42) tablet one 0.5mg tab twice daily for 4 days, then one 1mg tab twice daily. busPIRone 5 Yes [id number] 5mg Take 1 [facility] mg tablet 8-18 tablet by ity o f 00:00: mouth (three) Medical times Branch daily. busPIRone 5 Yes [id number] 5mg Take 1 [facility] mg tablet 8-18 tablet by ity o f 00:00: mouth (three) Medical times Branch daily. busPIRone 5 Yes [id number] 5mg Take 1 [facility] mg tablet 8-18 tablet by ity o f 00:00: mouth (three) Medical times Branch daily. busPIRone 5 2020-0 Yes [id number] 5mg Take 1 [facility] mg tablet 8-18 tablet by ity o f 00:00: mouth (three) Medical times Branch daily. busPIRone 5 2020-0 Yes [id number] 5mg Take 1 [facility] mg tablet 8-18 tablet by ity o f 00:00: mouth (three) Medical times Branch daily. busPIRone 5 2020-0 Yes [id number] 5mg Take 1 [facility] mg tablet 8-18 tablet by ity o f 00:00: mouth () Medical times Branch daily. busPIRone 5 2020-0 Yes [id number] 5mg Take 1 [facility] mg tablet 8-18 tablet by ity o f 00:00: mouth () Medical times Branch daily. busPIRone 5 2020-0 Yes [id number] 5mg Take 1 [facility] mg tablet 8-18 tablet by ity o f 00:00: mouth () Medical times Branch daily. busPIRone 5 0 Yes [id number] 5mg Take 1 [facility] mg tablet 8-18 tablet by ity o f 00:00: mouth () Medical times Branch daily. busPIRone 5 2020-0 Yes [id number] 5mg Take 1 [facility] mg tablet 8-18 tablet by ity o f 00:00: mouth () Medical times Branch daily. busPIRone 5 2020-0 Yes [id number] 5mg Take 1 [facility] mg tablet 8-18 tablet by ity o f 00:00: mouth (three) Medical times Branch daily. varenicline Yes [id number] Take one [facility] (CHANTIX 8-18 0.5mg tab ity of STARTING 00:00: by mouth ) 00 once daily Med ical 0.5 mg for 3 Branch (11)- 1 mg days, then (42) tablet one 0.5mg tab twice daily for 4 days, then one 1mg tab twice daily. busPIRone 5 2020- Yes [id number] 5mg Take 1 [facility] mg tablet 8-18 tablet by ity o f 00:00: mouth 3 [place] 00 (three) Medical times Branch daily. busPIRone 5 Yes [id number] 5mg Take 1 [facility] mg tablet 8-18 tablet by ity o f 00:00: mouth [address] [place] [address] 00 (three) Medical times Branch daily. varenicline Yes [id number] Take one [facility] (CHANTIX 8-18 0.5mg tab ity of STARTING 00:00: by mouth [facility]) 00 once daily Med ical 0.5 mg for 3 Branch (11)- 1 mg days, then (42) tablet one 0.5mg tab twice daily for 4 days, then one 1mg tab twice daily. busPIRone 5 2020-2022- No [id number] 5mg Take 1 [facility] mg tablet 8-18 06-12 tablet by ity of 00:00: 00:[address] [place] [address] 00 :00 (three) Medical times Branch daily. busPIRone 5 2022- No [id number] 5mg Take 1 [facility] mg tablet 8-18 -12 tablet by ity of 00:00: 00:[address] [place] [address] 00 :00 (three) Medical times Branch daily. busPIRone 5 2022- No [id number] 5mg Take 1 [facility] mg tablet 8-18 -12 tablet by ity of 00:00: 00:[address] 00 :00 (three) Medical times Branch daily. varenicline 2021- No [id number] Take one [facility] (CHANTIX 8-18 09-26 0.5mg tab ity o f STARTING 00:00: 00:00 by mouth [facility]) 00 :00 once daily Med ical 0.5 mg for 3 Branch (11)- 1 mg days, then (42) tablet one 0.5mg tab twice daily for 4 days, then one 1mg tab twice daily. varenicline 2021- No [id number] Take one [facility] (CHANTIX 8-18 09-26 0.5mg tab ity o f STARTING 00:00: 00:00 by mouth [facility]) 00 :00 once daily Med ical 0.5 mg for 3 Branch (11)- 1 mg days, then (42) tablet one 0.5mg tab twice daily for 4 days, then one 1mg tab twice daily. varenicline 0 2021- No [id number] Take one [facility] (CHANTIX 04-30 0.5mg tab ity o f STARTING 00:00: 00:00 by mouth [facility] Armandore[facility] barker [facility]) 00 :00 once daily Med ical 0.5 mg for 3 Branch (11)- 1 mg days, then (42) tablet one 0.5mg tab twice daily for 4 days, then one 1mg tab twice daily. busPIRone 5 0 Yes 5mg Take 5 mg U nivers mg tablet 04-07 by mouth. ity o f 00:00: [place] Medical Branch busPIRone 5 2020-0 Yes 5mg Take 5 mg U nivers mg tablet 04-07 by mouth. ity o f 00:00: [place] Medical Branch busPIRone 5 2020-0 Yes 5mg Take 5 mg U nivers mg tablet 04-07 by mouth. ity o f 00:00: [place] Medical Branch busPIRone 5 0 Yes 5mg Take 5 mg U nivers mg tablet 04-07 by mouth. ity o f 00:00: [place] Medical Branch busPIRone 5 2020-0 2021- No 5mg Take 5 mg [facility] mg tablet 04-07 by mouth. ity of 00:00: 00:00 [place] 00 :00 Medical Branch busPIRone 5 2020-0 2021- No 5mg Take 5 mg [facility] mg tablet 04-07 by mouth. ity of 00:00: 00:00 [place] 00 :00 Medical Branch busPIRone 5 2020-0 2021- No 5mg Take 5 mg [facility] mg tablet 04-07 by mouth. ity of 00:00: 00:00 [place] 00 :00 Medical Branch omeprazole 2020-0 Yes 1{capsu Take 1 Un [place] 20 mg 1-04 le} capsule by ity of capsule 00:00: mouth. [place] [address] Medical Branch omeprazole 2020-0 Yes 1{capsu Take 1 Un [place] 20 mg 1-04 le} capsule by ity of capsule 00:00: mouth. [place] [address] Medical Branch omeprazole 2020-0 Yes 1{capsu Take 1 Un [place] 20 mg 1-04 le} capsule by ity of capsule 00:00: mouth. [place] [address] Medical [place] omeprazole Yes 1{capsu Take 1 Un [place] 20 mg 1-04 le} capsule by ity of capsule 00:00: mouth. 83 [address] omeprazole 2021- No 1{capsu Take 1 U nivers 20 mg 1-04 -26 le} capsule by ity of capsule 00:00: 00:00 mouth. [place] 00 :[address] [facility] omeprazole 2021- No 1{capsu Take 1 U nivers 20 mg 1-04 -26 le} capsule by ity of capsule 00:00: 00:00 mouth. [place] 00 :[address] [facility] omeprazole 2021- No 1{capsu Take 1 U nivers 20 mg 1-04 - le} capsule by ity of capsule 00:00: 00:00 mouth. [place] 00 :00 [facility] Immunizations Ordered Immunization Filled Date Status Comments Sour ce Name Immunization Name Meningococcal 2021-04-30 Completed [facility] 00:[facility]00 [place] [facility] (groups A, C, Y and Branc h W-135) conjugate vaccine (MCV4P) Meningococcal 2021-04-30 Completed [facility] Polysaccharide 00:00:00 [place] [facility] (groups A, C, Y and Branc h W-135) conjugate vaccine (MCV4P) Meningococcal 2021-04-30 Completed [facility] Polysaccharide 00:00:00 [place] [facility] (groups A, C, Y and Branc h W-135) conjugate vaccine (MCV4P) Meningococcal 2021-04-30 Completed [facility] Polysaccharide 00:00:00 [place] [facility] (groups A, C, Y and Branc h W-135) conjugate vaccine (MCV4P) Meningococcal 2021-04-30 Completed [facility] Polysaccharide 00:00:00 [place] [facility] (groups A, C, Y and Branc h W-135) conjugate vaccine (MCV4P) Meningococcal 2021-04-30 Completed [facility] Polysaccharide 00:00:00 [place] [facility] (groups A, C, Y and Branc h W-135) conjugate vaccine (MCV4P) Meningococcal 2021-04-30 Completed [facility] Polysaccharide 00:00:00 [place] [facility] (groups A, C, Y and Branc h W-135) conjugate vaccine (MCV4P) Meningococcal 2021-04-30 Completed [facility] Pol[facility] 00:[place]00 [place] [facility] (groups A, C, Y and Branc h W-135) conjugate vaccine (MCV4P) Meningococcal 2021-04-30 Completed [facility] Polysaccharide 00:00:00 [place] [facility] (groups A, C, Y and Branc h W-135) conjugate vaccine (MCV4P) Meningococcal 2021-04-30 Completed [facility] Polysaccharide 00:00:00 [place] [facility] (groups A, C, Y and Branc h W-135) conjugate vaccine (MCV4P) Meningococcal 2021-04-30 Completed [facility] Polysaccharide 00:00:00 [place] [facility] (groups A, C, Y and Branc h W-135) conjugate vaccine (MCV4P) Meningococcal 2021-04-30 Completed [facility] Polysaccharide 00:00:00 [place] [facility] (groups A, C, Y and Branc h W-135) conjugate vaccine (MCV4P) Meningococcal 2021-04-30 Completed [facility] Polysaccharide 00:00:00 [place] [facility] (groups A, C, Y and Branc h W-135) conjugate vaccine (MCV4P) Meningococcal 2021-04-30 Completed [facility] Polysaccharide 00:00:00 [place] [facility] (groups A, C, Y and Branc h W-135) conjugate vaccine (MCV4P) Meningococcal 2021-04-30 Completed [facility] Polysaccharide 00:00:00 [place] [facility] (groups A, C, Y and Branc h W-135) conjugate vaccine (MCV4P) Meningococcal 2021-04-30 Completed [facility] Polysaccharide 00:00:00 [place] [facility] (groups A, C, Y and Branc h W-135) conjugate vaccine (MCV4P) Meningococcal 2021-04-30 Completed [facility] Polysaccharide 00:00:00 [place] [facility] (groups A, C, Y and Branc h W-135) conjugate vaccine (MCV4P) Meningococcal 2021-04-30 Completed [facility] Polysaccharide 00:00:00 [place] [facility] (groups A, C, Y and Branc h W-135) conjugate vaccine (MCV4P) Meningococcal 2021-04-30 Completed [facility] Polysaccharide 00:00:00 [place] [facility] (groups A, C, Y and Branc h W-135) conjugate vaccine (MCV4P) Meningococcal 2021-04-30 Completed [facility] Polysaccharide 00:00:00 [place] [facility] (groups A, C, Y and Branc h W-135) conjugate vaccine (MCV4P) Meningococcal 2021-04-30 Completed [facility] Polysaccharide 00:00:00 [place] [facility] (groups A, C, Y and Branc h W-135) conjugate vaccine (MCV4P) Meningococcal 2021-04-30 Completed [facility] Polysaccharide 00:00:00 [place] [facility] (groups A, C, Y and Branc h W-135) conjugate vaccine (MCV4P) Meningococcal 2021-04-30 Completed [facility] Polysaccharide 00:00:00 [place] [facility] (groups A, C, Y and Branc h W-135) conjugate vaccine (MCV4P) Meningococcal 2021-04-30 Completed [facility] Polysaccharide 00:00:00 [place] [facility] (groups A, C, Y and Branc h W-135) conjugate vaccine (MCV4P) Meningococcal 2021-04-30 Completed [facility] Polysaccharide 00:00:00 [place] [facility] (groups A, C, Y and Branc h W-135) conjugate vaccine (MCV4P) Meningococcal 2021-04-30 Completed [facility] Polysaccharide 00:00:00 [place] [facility] (groups A, C, Y and Branc h W-135) conjugate vaccine (MCV4P) Meningococcal 2021-04-30 Completed [facility] Polysaccharide 00:00:00 [place] [facility] (groups A, C, Y and Branc h W-135) conjugate vaccine (MCV4P) Meningococcal 2021-04-30 Completed [facility] Polysaccharide 00:00:00 [place] [facility] (groups A, C, Y and Branc h W-135) conjugate vaccine (MCV4P) Meningococcal 2021-04-30 Completed [facility] Polysaccharide 00:00:00 [place] [facility] (groups A, C, Y and Branc h W-135) conjugate vaccine (MCV4P) Meningococcal 2021-04-30 Completed [facility] Polysaccharide 00:00:00 [place] [facility] (groups A, C, Y and Branc h W-135) conjugate vaccine (MCV4P) Meningococcal 2021-04-30 Completed [facility] Polysaccharide 00:00:00 [place] [facility] (groups A, C, Y and Branc h W-135) conjugate vaccine (MCV4P) Meningococcal 2021-04-30 Completed [facility] Polysaccharide 00:00:00 [place] [facility] (groups A, C, Y and Branc h W-135) conjugate vaccine (MCV4P) Meningococcal 2021-04-30 Completed [facility] Polysaccharide 00:00:00 [place] [facility] (groups A, C, Y and Branc h W-135) conjugate vaccine (MCV4P) Meningococcal 2021-04-30 Completed [facility] Polysaccharide 00:00:00 [place] [facility] (groups A, C, Y and Branc h W-135) conjugate vaccine (MCV4P) Meningococcal 2021-04-30 Completed [facility] Polysaccharide 00:00:00 [place] [facility] (groups A, C, Y and Branc h W-135) conjugate vaccine (MCV4P) Meningococcal 2021-04-30 Completed [facility] Polysaccharide 00:00:00 [place] [facility] (groups A, C, Y and Branc h W-135) conjugate vaccine (MCV4P) Meningococcal 2021-04-30 Completed [facility] Polysaccharide 00:00:00 [place] [facility] (groups A, C, Y and Branc h W-135) conjugate vaccine (MCV4P) Meningococcal 2021-04-30 Completed [facility] Polysaccharide 00:00:00 [place] [facility] (groups A, C, Y and Branc h W-135) conjugate vaccine (MCV4P) Meningococcal 2021-04-30 Completed [facility] Polysaccharide 00:00:00 [place] [facility] (groups A, C, Y and Branc h W-135) conjugate vaccine (MCV4P) Meningococcal 2021-04-30 Completed [facility] Polysaccharide 00:00:00 [place] [facility] (groups A, C, Y and Branc h W-135) conjugate vaccine (MCV4P) Meningococcal 2021-04-30 Completed [facility] Polysaccharide 00:00:00 [place] [facility] (groups A, C, Y and Branc h W-135) conjugate vaccine (MCV4P) Meningococcal 2021-04-30 Completed [facility] Polysaccharide 00:00:00 [place] [facility] (groups A, C, Y and Branc h W-135) conjugate vaccine (MCV4P) Meningococcal 2021-04-30 Completed [facility] Polysaccharide 00:00:00 [place] [facility] (groups A, C, Y and Branc h W-135) conjugate vaccine (MCV4P) Meningococcal 2021-04-30 Completed [facility] Polysaccharide 00:00:00 [place] [facility] (groups A, C, Y and Branc h W-135) conjugate vaccine (MCV4P) Meningococcal 2021-04-30 Completed [facility] Polysaccharide 00:00:00 [place] [facility] (groups A, C, Y and Branc h W-135) conjugate vaccine (MCV4P) Meningococcal 2021-04-30 Completed [facility] of Polysaccharide 00:00:00 [facility] magen (groups A, C, Y and Branc h W-135) conjugate vaccine (MCV4P) Meningococcal 2021-04-30 Completed [facility] of Polysaccharide 00:00:00 [facility] magen (groups A, C, Y and Branc h W-135) conjugate vaccine (MCV4P) Meningococcal Unknown Completed University of Polysaccharide [facility] (groups A, C, Y and Branc h W-135) conjugate vaccine (MCV4P) Meningococcal Unknown Completed University of Polysaccharide [facility] (groups A, C, Y and Branc h W-135) conjugate vaccine (MCV4P) Vital Signs Vital Name Observation Time Observation Value Comments Source Systolic blood 2023-05-18 20:37:00 123 mm[Hg] Univer sity of [facility] Diastolic blood 2023-05-18 20:37:00 76 [facility]Hg[facility]23-[facility]-18 20:37:00 78 /min [facility] Body temperature 2023-05-18 20:37:00 37.11 Jennifer [facility] Respiratory rate 2023-05-18 20:37:00 16 /min [facility] Body height 2023-05-18 20:37:00 162.6 cm [facility] Body weight 2023-05-18 20:37:00 63.504 kg [facility] BMI 2023-05-18 20:37:00 24.03 kg/m2 [facility] Oxygen saturation in 2023-05-18 20:37:00 98 /min [facility] Arterial blood by [facility] Pulse oximetry Branch Systolic blood 2023-03-19 17:56:00 108 mm[Hg] Univer sity of [facility] Diastolic blood 2023-03-19 17:56:00 69 mm[Hg] Unive rsity of pressure [facility] Heart rate 2023-03-19 17:56:00 82 /min [facility]i ty [facility] [place] [facility] Respiratory rate 2023-03-19 17:56:00 19 /min Univ ersity [facility] [place] [facility] Body height 2023-03-19 17:56:00 162.6 cm [facility]i [facility] [place] [facility] Body weight 2023-03-19 17:56:00 64.184 kg [facility]i [facility] [place] [facility] BMI 2023-03-19 17:56:00 24.29 kg/m2 [facility] [place] [facility] Oxygen saturation in 2023-03-19 17:56:00 96 /min University of Arterial blood by [place] [employer] magen Pulse oximetry Branch Systolic blood 2023-03-17 17:57:00 105 mm[Hg] Univer sity of pressure [place] [facility] Diastolic blood 2023-03-17 17:57:00 65 mm[Hg] Unive rsity of pressure [facility] Heart rate 2023-03-17 17:57:00 82 /min [facility]i [facility] [place] [facility] Body temperature 2023-03-17 17:57:00 37 Jennifer [facility] [place] [facility] Respiratory rate 2023-03-17 17:57:00 16 /min Univ ersity [facility] [place] [facility] Body height 2023-03-17 17:57:00 162.6 cm [facility] [place] [facility] Body weight 2023-03-17 17:57:00 63.866 kg [facility] [place] [facility] BMI 2023-03-17 17:57:00 24.17 kg/m2 [facility] [place] [facility] Oxygen saturation in 2023-03-17 17:57:00 97 /min University of Arterial blood by [facility] Pulse oximetry Branch Systolic blood 2023-02-22 17:49:00 112 mm[Hg] Univer sity of pressure [place] [facility] Diastolic blood 2023-02-22 17:49:00 75 mm[Hg] Unive rsity of pressure [place] [facility] Heart rate 2023-02-22 17:49:00 68 /min [facility] [place] [facility] Body temperature 2023-02-22 17:49:00 36.89 Jennifer [facility] [place] [facility] Respiratory rate 2023-02-22 17:49:00 18 /min Univ ersity of [place] [facility] Body height 2023-02-22 17:49:00 162.6 cm [facility] [place] [facility] Body weight 2023-02-22 17:49:00 62.188 kg [facility] [place] [facility] BMI 2023-02-22 17:49:00 23.53 kg/m2 [facility] [place] [facility] Oxygen saturation in 2023-02-22 17:49:00 97 /min [facility] Arterial blood by [place] [facility] Pulse oximetry Branch Systolic blood 2023-02-16 20:28:00 117 mm[Hg] Univer sity of pressure [place] [facility] Diastolic blood 2023-02-16 20:28:00 71 mm[Hg] Unive rsity of pressure [place] [facility] Heart rate 2023-02-16 20:28:00 86 /min [facility] [place] [facility] Body temperature 2023-02-16 20:28:00 36.06 Jennifer [facility] [place] [facility] Respiratory rate 2023-02-16 20:28:00 18 /min Univ ers[facility] [place] [facility] Body height 2023-02-16 20:28:00 162.6 cm [facility] [place] [facility] Body weight 2023-02-16 20:28:00 62.732 kg [facility] [place] [facility] BMI 2023-02-16 20:28:00 23.74 kg/m2 [facility] [place] [facility] Oxygen saturation in 2023-02-16 20:28:00 97 /min University of Arterial blood by [facility] Pulse oximetry Branch Systolic blood 2023-02-04 19:54:00 121 mm[Hg] Univer sity of pressure [place] [facility] Diastolic blood 2023-02-04 19:54:00 80 mm[Hg] Unive rsity of pressure [place] [facility] Heart rate 2023-02-04 19:54:00 82 /min [facility] [place] [facility] Respiratory rate 2023-02-04 19:54:00 18 /min Univ ers[facility] [place] [facility] Body height 2023-02-04 19:54:00 162.6 cm [facility] [place] [facility] Body weight 2023-02-04 19:54:00 61.871 kg [facility] [place] [facility] BMI 2023-02-04 19:54:00 23.41 kg/m2 [facility] [place] [facility] Oxygen saturation in 2023-02-04 19:54:00 97 /min University of Arterial blood by [facility] Pulse oximetry Branch Systolic blood 2023-02-03 21:34:00 137 mm[Hg] Univer sity of pressure [facility] Diastolic blood 2023-02-03 21:34:00 78 mm[Hg] Unive rsity of pressure [facility] Heart rate 2023-02-03 21:34:00 76 /min [facility] [place] [facility] Body temperature 2023-02-03 21:34:00 36.67 Jennifer [facility] [place] [facility] Respiratory rate 2023-02-03 21:34:00 16 /min Univ ers[facility] [place] [facility] Body weight 2023-02-03 21:34:00 61.689 kg [facility] [place] [facility] Oxygen saturation in 2023-02-03 21:34:00 98 /min University of Arterial blood by [facility] Pulse oximetry Branch Systolic blood 2022-11-10 18:54:00 119 mm[Hg] Univer sity of pressure [place] [facility] Diastolic blood 2022-11-10 18:54:00 79 mm[Hg] Unive rsity of pressure [place] [facility] Heart rate 2022-11-10 18:54:00 78 /min [facility] [place] [facility] Body temperature 2022-11-10 18:54:00 36.22 Jennifer [facility] [place] [facility] Body height 2022-11-10 18:54:00 162.6 cm [facility] [place] [facility] Body weight 2022-11-10 18:54:00 63.005 kg [facility] [place] [facility] BMI 2022-11-10 18:54:00 23.84 kg/m2 [facility] [place] [facility] Systolic blood 2022-10-26 23:20:00 127 mm[Hg] Univer sity of pressure [place] [facility] Diastolic blood 2022-10-26 23:20:00 74 mm[Hg] Unive rsity of pressure [facility] Heart rate 2022-10-26 23:20:00 82 /min [facility] [place] [facility] Body temperature 2022-10-26 23:20:00 37.11 Jennifer [facility] [place] [facility] Respiratory rate 2022-10-26 23:20:00 17 /min Univ [facility] [place] [facility] Body height 2022-10-26 23:20:00 162.6 cm [facility] [place] [facility] Body weight 2022-10-26 23:20:00 62.687 kg [facility] [place] [facility] BMI 2022-10-26 23:20:00 23.72 kg/m2 Universi ty of [facility] Oxygen saturation in 2022-10-26 23:20:00 99 /min [facility] Arterial blood by [facility] Pulse oximetry Branch Systolic blood 2022-10-13 21:06:00 124 mm[Hg] Univer sity of pressure [facility] Diastolic blood 2022-10-13 21:06:00 85 mm[Hg] Unive rsity of pressure [place] [facility] Heart rate 2022-10-13 21:06:00 72 /min [facility] [place] [facility] Body temperature 2022-10-13 21:06:00 36.5 Jennifer [facility] [place] [facility] Body height 2022-10-13 21:06:00 162.6 cm [facility] [place] [facility] Body weight 2022-10-13 21:06:00 63.776 kg [facility] [place] [facility] BMI 2022-10-13 21:06:00 24.13 kg/m2 [facility] [place] [facility] Systolic blood 2022-09-18 15:34:00 120 mm[Hg] Univer sity of pressure [place] [facility] Diastolic blood 2022-09-18 15:34:00 66 mm[Hg] Unive rsity of pressure [facility] Heart rate 2022-09-18 15:34:00 76 /min [facility] [place] [facility] Body temperature 2022-09-18 15:34:00 36.72 Jennifer Univ ersity of [facility] Respiratory rate 2022-09-18 15:34:00 18 /min Univ ersity [facility] [place] [facility] Body height 2022-09-18 15:34:00 162.6 cm [facility] [place] [facility] Body weight 2022-09-18 15:34:00 65.772 kg [facility] [place] [facility] BMI 2022-09-18 15:34:00 24.89 kg/m2 [facility]i ty of [facility] Oxygen saturation in 2022-09-18 15:34:00 99 /min [facility]ial blood by [place] [facility] Pulse oximetry Branch Systolic blood 2022-09-16 16:52:00 129 mm[Hg] Univer sity of pressure [facility] Diastolic blood 2022-09-16 16:52:00 82 mm[Hg] Unive rsity of pressure [place] [facility] Heart rate 2022-09-16 16:52:00 83 /min [facility] [place] [facility] Body temperature 2022-09-16 16:52:00 37.06 Jennifer [facility] [place] [facility] Respiratory rate 2022-09-16 16:52:00 18 /min Univ ers[facility] [place] [facility] Body height 2022-09-16 16:52:00 162.6 cm [facility] [place] [facility] Body weight 2022-09-16 16:52:00 65.772 kg [facility] [place] [facility] BMI 2022-09-16 16:52:00 24.89 kg/m2 [facility] [place] [facility] Oxygen saturation in 2022-09-16 16:52:00 97 /min University of Arterial blood by [facility] magen Pulse oximetry Branch Systolic blood 2022-07-26 22:46:00 118 mm[Hg] Univer sity of pressure [place] [facility] Diastolic blood 2022-07-26 22:46:00 63 mm[Hg] Unive rsity of pressure [place] [facility] Heart rate 2022-07-26 22:46:00 85 /min [facility] [place] [facility] Body temperature 2022-07-26 22:46:00 37 Jennifer [facility] [place] [facility] Respiratory rate 2022-07-26 22:46:00 16 /min Univ ers[facility] [place] [facility] Body height 2022-07-26 22:46:00 162.6 cm [facility] [place] [facility] Body weight 2022-07-26 22:46:00 65.318 kg [facility] [place] [facility] BMI 2022-07-26 22:46:00 24.72 kg/m2 [facility] [place] [facility] Oxygen saturation in 2022-07-26 22:46:00 99 /min [facility] Arterial blood by [place] [facility] Pulse oximetry Branch Systolic blood 2022-06-08 18:22:00 102 mm[Hg] Univer sity of pressure [place] [facility] Diastolic blood 2022-06-08 18:22:00 67 mm[Hg] [facility] Heart rate 2022-06-08 18:22:00 73 /min [facility] Body height 2022-06-08 18:22:00 162.6 cm [facility] Body weight 2022-06-08 18:22:00 63.957 kg [facility] BMI 2022-06-08 18:22:00 24.20 kg/m2 [facility] Procedures Procedure Date / Time Performing Clinician Source Performed ASSIGNMENT OF BENEFITS 2023-05-18 21:10:43 Doctor Unassigned, No [facility] Name [facility] CONSENT/REFUSAL FOR 2023-05-18 20:25:38 Doctor Unassigned, No [facility] DIAGNOSIS AND TREATMENT [facility] XR FOOT 3+ VW RIGHT 2023-03-17 18:47:37 Jaylin Mcclendon [facility] FREE T4 2023-02-04 20:39:00 Prasanna Radha [facility] THYROID STIMULATING 2023-02-04 20:39:00 Radha Mims [facility] HORMONE [facility] COMP. METABOLIC PANEL 2023-02-04 20:39:00 Radha Mims [facility] ([id number]) [facility] LIPID PANEL 2023-02-04 20:39:00 Prasanna Radha [facility] ([id number])(TOTAL [facility] CHOLESTEROL, TRIGLYCERIDES, HDL) CBC WITH DIFF 2023-02-04 20:39:00 Prasanna [facility] GLYCOSYLATED HEMOGLOBIN 2023-02-04 20:39:00 Phillip Mimsssica [facility] (A1C) [facility] URINALYSIS 2023-02-04 20:39:00 Prasanna [facility] HCV ANTIBODY 2023-02-04 20:39:00 Phillip Mimsssica [facility] PATIENT FINANCIAL 2023-02-03 21:15:52 Doctor Unassigned, No [facility] POLICY Name [facility] POCT MOLECULAR FLU 2022-10-26 23:40:00 Unknown, Attending [facility] POCT MOLECULAR STREP 2022-10-26 23:36:00 Unknown, Attending [facility] POCT MOLECULAR STREP 2022-09-18 15:39:00 Unknown, Attending [facility] REFERRAL- 2022-06-25 05:01:00 Doctor Unassigned, No Kenn [facility] REQUEST/RESPONSE Name [facility] XR LUMBAR SPINE 3 VW 2022-06-10 16:57:35 Requisition, Paper [facility] ASSIGNMENT OF BENEFITS 2022-06-08 18:16:31 Doctor Unassigned, No [facility] Name [facility] Encounters Start End Encounter Admission Attending Care Care Encounter Source Date/Time Date/Time Type Type Clinicians Facility Department ID 2022-06-24 Inpatient MAO HOLLAND, [facility] [id number] [place] 10:00:00 JM [id number] [facility] 2023-08-26 2023-08-26 Outpatient Yamilex [facility] [id number] Univers 10:00:00 10:00:00 RADHA [facility] 2023-05-18 2023-05-18 Emergency X RADHAMES, [facility] ERT [id number] Univers 15:38:00 17:54:00 JACOB [facility] 2023-05-18 2023-05-[address] [facility] [id number] Univers 15:38:00 17:54:00 [facility] [id number] i [facility] [id number] [facility] [id number] [place] [id number] Branch 2023-05-17 2023-05-17 Outpatient R ROSIO [facility] [id number] Univers 15:20:00 15:20:00 ROSALINDA allen [facility] 2023-04-01 2023-04-01 Outpatient Yamilex JOSHI [facility] [id number] Univers 09:45:00 09:45:00 CASSIE allen [facility] 2023-03-19 2023-03-19 Outpatient Yamilex [facility] [id number] Univers 13:00:00 13:43:10 RADHA allen [facility] 2023-03-19 2023-03-19 Office Prasanna [facility] [id number] Univers 13:00:00 13:43:10 Visit Radha HOLLOW[place] [id number] i [id number] [id number] Mn dicjeanette NAL 044 [facility] 2023-03-17 2023-03-17 [facility] [id number] Univers 13:02:40 23:59:00 [facility]23-03-17 2023-03-17 [facility] [id number] Univers 13:02:40 23:59:00 Encounter [facility] [id number] ity of [place] [id number] Jose Armando as HENRRY?BLEA [id number] Mn dicjeanette OLSONEY 808 [facility] 2023-03-17 2023-03-17 Urgent Jayiln Mcclendon [facility] [id number] Univers 12:40:00 13:57:04 Care Unknown, [facility] [id number] ity [facility] [id number] Jose Armando as HENRRY?BLEA [id number] Mn dicjeanette OLSONEY 370 [facility] 2023-03-11 2023-03-11 Outpatient Yamilex [facility] [id number] Univers 10:00:00 10:00:00 REEMA jamil [facility] 2023-03-08 2023-03-08 Outpatient Yamilex [facility] [id number] Univers 11:30:00 11:30:00 RADHA allen [facility] 2023-02-23 2023-02-23 Outpatient Yamilex TEIXEIRA [facility] [id number] Univers 09:30:00 09:30:00 REEMA jamil [facility] 2023-02-22 2023-02-22 Outpatient [facility]x [facility] [id number] Univers 13:00:00 13:21:43 RADHA allen [facility] 2023-02-22 2023-02-22 Office [facility] [id number] Univers 13:00:00 13:21:43 Visit Radha HOLLOWAY [id number] i ty [facility] [id number] [id number] Mn dical NAL 044 [facility] 2023-02-16 2023-02-16 Office [facility] [id number] Univers 15:40:00 16:00:00 Visit Reema HOLLOWAY [id number] ity of [facility] [id number] [id number] [facility] 059 [facility] 2023-02-16 2023-02-16 Outpatient [facility] [id number] Univers 15:40:00 15:40:00 REEMA allen o f [facility] 2023-02-16 2023-02-16 Telephone [facility] 1.2.679.505 [id number] Univers 00:00:00 00:00:00 Radha HOLLOWAY 350.1.13.10 i [place] [phone] [facility] NAL [address] [place] [address] 2023-02-09 2023-02-09 Patient [facility] 1.2.840.114 [id number] Univers 00:00:00 00:00:00 Outreach Consuelo HOLLOWAY 350.1.13.10 [place] [id number] [facility] NAL [address] [place] [address] 2023-02-05 2023-02-05 Telephone [facility] 1.2.992.111 [id number] Univers 00:00:00 00:00:00 Radha HOLLOWAY 350.1.13.10 i ty [place] [phone] [facility] NAL 044 [facility] 2023-02-04 2023-02-04 Hospital [facility] 1.2.840.114 [id number] Univers 15:45:00 23:59:00 Encounter Radha HOLLOWAY 350.1.13.10 [place] [phone] [facility] [address] 2023-02-04 2023-02-04 [employer], Adc Lab [facility] 1.2.840.114 [id number] Univers 16:00:00 16:15:00 Visit Radha Mims 350.1.13.10 ity [facility] [place] [phone] Mn dical NAL 353 [facility] 2023-02-04 2023-02-04 Outpatient R PRASANNA [facility] [id number] Univers 15:00:00 15:22:29 RADHA alejandro [facility] 2023-02-04 2023-02-04 [facility] 1.2.840.114 [id number] Univers 15:00:00 15:22:29 Visit Radha AMIE 350.1.13.10 i ty [place] [facility] [phone] Mn dical NAL 044 [facility] 2023-02-03 2023-02-03 Nurse Nurse, Erik Quinteros [facility] 1.2.840.114 [id number] Univers 16:15:00 16:35:00 Visit Unknown, Attending HEALTH 350.1.13.10 ity of Radha Mims 4.2.7.2.686 [place] HENRRY?BLEA [phone] Mn dical KNEY [address] MEDICAL OFFICE BUILDING 2023-02-03 2023-02-03 Outpatient R PRASANNA [facility] [id number] Univers 16:15:00 16:15:00 RADHA alejandro [facility] 2023-02-03 2023-02-03 Orders Doctor NETTLES 1.2.840.114 [id number] Univers 00:00:00 00:00:00 Only Unassigned, PEDRO 350.1.13.10 ity of [place] [facility] 4.2.7.2.686 Jose Armando as [phone] [facility] [address] 2022-12-15 2022-12-15 Outpatient R [facility] [id number] Univers 11:00:00 11:00:00 ity [facility] 2022-11-30 2022-11-30 Outpatient R DELORES [facility] [id number] Univers 10:15:00 10:15:00 CHRISTINA allen [facility] 2022-11-10 2022-11-10 Outpatient Yamilex ESTRELLA [facility] [id number] Univers 13:00:00 14:10:53 CHRISTINA allen [facility] 2022-11-10 2022-11-10 Office [facility] 1.2.840.114 [id number] Univers 13:00:00 14:10:53 Visit Christina SPECIALTY 350.1.13.10 ity of [facility] [place] AT [phone] Mn milagros BOBBY [address] [place] [address] 2022-10-27 2022-10-27 Letter YOON Thornton 1.2.840.114 [id number] Univers 00:00:00 00:00:00 (Out) Misael VASQUEZ 350.1.13.10 it [facility] 4.2.7.2.686 Jose Armando as [phone] [address] 2022-10-26 2022-10-26 Outpatient R TRAY [facility] [id number] Univers 17:20:00 17:53:20 ZAKIA itcarolynn [facility] 2022-10-26 2022-10-26 Zakia Ortega [facility] 1.2.840.114 [id number] Univers 17:20:00 17:53:20 Care Unknown, Attending HEALTH 350.1.13.10 ity [facility] 4.2.7.2.686 Jose Armando as HENRRY?BLEA [id number] Mn milagros MEZA [address] MEDICAL OFFICE BUILDING 2022-10-26 2022-10-26 Telephone Delores [facility] 1.2.840.114 [id number] Univers 00:00:00 00:00:00 Christina SPECIALTY 350.1.13.10 ity of [facility] [place].2.7.2.[place] [phone] Mn milagros TONYACarolynn [address] [facility] 2022-10-19 2022-10-19 [id number] Univers 10:54:54 23:59:00 alejandro HOFFMANN [facility] 2022-10-19 2022-10-19 [facility] 1.2.840.114 [id number] Univers 10:54:54 23:59:00 Encounter AMIE hoffmann 350.1.13.10 ity [facility] [place] [id number] [address] 2022-10-14 2022-10-14 Telephone [facility] 1.2.840.114 [id number] Univers 00:00:00 00:00:00 Christina SPECIALTY 350.1.13.10 ity of [facility] 4.2.7.2.686 [facility] AT [phone] Mn milagros ROSALES [address] [facility] 2022-10-13 2022-10-13 Hospital [facility] 1.2.367.235 [id number] Univers 15:08:19 23:59:00 Encounter Christina SPECIALTY 350.1.13.10 ity of [facility] 4.2.7.2.686 [facility] AT [phone] Mn milagros ROSALES 809 [facility] 2022-10-13 2022-10-13 [facility] [id number] Univers 15:10:00 16:09:53 CHRISTINA allen [facility] 2022-10-13 2022-10-13 Office [facility] 1.2.840.114 [id number] Univers 15:10:00 16:09:53 Visit Christina SPECIALTY 350.1.13.10 ity of [facility] 4.2.7.2.[address] [facility] s CENTER AT [phone] Mn milagros ROSALES [address] [place] [address] 2022-09-18 2022-09-18 Outpatient R XAVI [facility] [id number] Univers 09:40:00 10:00:58 FRANK allen [facility] 2022-09-18 2022-09-18 Urgent Frank Andres [facility] ..840.11 [id number] Univers 09:40:00 10:00:58 Care Unknown, Attending HEALTH 350..13.10 ity of [place] 4.2.7.2.686 Jose Armando as HENRRY?BLEA [phone] [address] MEDICAL OFFICE [facility] 2022-09-18 2022-09-18 Letter Xavi [facility] 1.2.257.027 [id number] Univers 00:00:00 00:00:00 (Out) [facility] 350..13.10 it y of [place] 4.2.7.2.686 Jose Armando as HENRRY?BLEA [phone] [address] OFFICE [facility] 2022-09-16 2022-09-16 Urgent Cassie Mcclelland Dragan [facility] ..840.114 [id number] Univers 10:40:00 11:00:00 Care Unknown, Attending [facility] 350...10 ity of [place] 4.2.7.2.686 Jose Armando as HENRRY?BLEA [phone] [address] OFFICE [facility] 2022-09-16 2022-09-16 Outpatient R KING JTE [facility] [id number] Univers 10:40:00 10:40:00 CASSIE allen [facility] 2022-09-16 2022-09-16 Love Cassie Mcclelland [facility] 1..840.114 [id number] Univers 00:00:00 00:00:00 (Out) [facility] 350.13.10 it y of [place] 4.2.7.2.686 Jose Armando as HENRRY?BLEA [id number] [address] MEDICAL OFFICE [facility] 2022-07-26 2022-07-26 Outpatient R ADY [facility] [id number] Univers 16:40:00 17:08:58 GABRIELA jamil [facility] 2022-07-26 2022-07-26 Urgent Gabriela Espinoza [facility] 1..840 .114 [id number] Univers 16:40:00 17:08:58 Care Unknown, Attending HEALTH 350..13.10 ity of [place] 4.2.7.2.686 Jose Armando as HENRRY?BLEA [id number] Mn milagros [address] MEDICAL OFFICE [facility] 2022-07-26 2022-07-26 Letter Ady [facility] 1.2.840.114 [id number] Univers 00:00:00 00:00:00 (Out) Gabriela [facility] 350.1.13.[address] [facility] 4.2.7.2.686 Jose Armando as HENRRY?BLEA [id number] Mn milagros [address] MEDICAL OFFICE [facility] 2022-07-10 2022-07-10 Outpatient MAO ALVARADOAL, [facility] [id number] [place] 10:27:00 10:27:00 JM [id number] [facility] 2022-07-03 2022-07-03 Patient Doctor YOON 1.2.840.114 [id number] Univers 00:00:00 00:00:00 Secure Msg Unassigned, PEDRO 350.1.13.10 ity of [place] [facility] 4.2.7.2.686 Jose Armando as [id number] [facility] [address] 2022-06-25 2022-06-25 Orders Doctor YOON 1.2.840.114 [id number] Univers 00:00:00 00:00:00 Only Unassigned, PEDRO 350.1.13.10 ity of [place] [facility] 4.2.7.2.686 Jose Armando as [id number] [facility] [address] 2022-06-10 2022-06-10 Outpatient R RADIOLOGY [facility] [id number] Univers 11:33:47 23:59:00 ity of [facility] 2022-06-10 2022-06-10 Hospital Radiology [facility] 1.2.840.114 [id number] Univers 11:30:00 23:59:00 Encounter AMIE 350.1.13.10 ity of [place] [id number] [facility] [address] 2022-06-10 2022-06-10 [employer] 1, Adc Lab [facility] 1.2.840.114 [id number] Univers 10:45:00 11:00:00 Visit Dereck Hernandez 350.1.13.10 ity of [place] 4.2.7.2.686 [place] [facility] [id number] [facility] [address] 2022-06-09 2022-06-09 Outpatient R MADELYN [facility] [id number] Univers 09:15:00 09:15:00 CASSIE ity [facility] 2022-06-09 2022-06-09 [employer] Lab, Ang - Db [facility] 1.2.840.1 14 [id number] Univers 09:15:00 09:15:00 Visit Cassie Joshi [facility] 350.1.13 .10 ity of [place] 4.2.7.2.686 Jose Armando as HENRRY?BLEA [phone] [facility] [address] MEDICAL OFFICE BUILDING 2022-06-08 2022-06-08 Office Madelyn [facility] 1.2.840.114 [id number] Univers 13:30:00 13:45:00 Visit [facility] 350.1.13.10 it y of [place] 4.2.7.2.686 Jose Armando as HENRRY?BLEA [id number] [facility] [address] MEDICAL OFFICE BUILDING 2022-06-08 2022-06-08 Outpatient R MADELYN [facility] [id number] Univers 13:30:00 13:30:00 CASSIE [facility] 2022-06-08 2022-06-08 Orders Doctor NETTLES 1.2.840.114 [id number] Univers 00:00:00 00:00:00 Only Unassigned, PEDRO 350.1.13.10 ity of [place] [facility] 4.2.7.2.686 Jose Armando as [id number] [facility] [address] 2021-10-30 2021-10-30 Outpatient R [facility] [id number] Univers 18:00:00 18:00:00 ity [facility] 2021-05-16 2021-05-16 Outpatient R CHALO [facility] [id number] Univers 15:15:00 15:15:00 KAYE allen [facility] 2021-05-16 2021-05-16 Laboratory Only, Adc Pob2 Test [facility] 1.2 .840.114 [id number] Univers 14:05:16 14:20:16 Only Kaye Wu 350.1.13. 10 ity of [place] [phone] Mn dical [facility] [address] [facility] 2021-05-09 2021-05-09 Laboratory Only, Adc Pob2 Test [facility] 1.2 .840.114 [id number] Univers 15:49:54 15:54:14 Only Alejandro Bert Angel Amie 350.1.13 .10 ity of [place].2.[place] [phone] [facility] [address] [facility] 2021-05-09 2021-05-09 Outpatient R ALEJANDRO [facility] [id number] Univers 15:45:00 15:45:00 BERT allen [facility] 2021-05-07 2021-05-07 [facility] 1.2.840.114 [id number] Univers 00:00:00 00:00:00 [facility] 350.1.13.10 it y of [place] 4.2.7.2.686 Jose Armando as Henrry?Blea [phone] [address] Medical Office [facility] 2021-05-05 2021-05-05 Outpatient Yamilex JOSHI [facility] [id number] Univers 15:45:00 15:45:00 CASSIE lalen [facility] 2021-05-01 2021-05-01 Patient Doctor YOON 1.2.840.114 [id number] Univers 00:00:00 00:00:00 Secure Msg Unassigned, PEDRO 350.1.13.10 ity of [place] [facility] 4.2.7.2.686 Jose Armando as [phone] [address] 2021-04-30 2021-04-30 Outpatient R MADELYN [facility] [id number] Univers 15:00:00 15:00:00 CASSIE allen [facility] 2021-04-25 2021-04-25 Outpatient R ABEL [facility] [id number] Univers 13:00:00 13:00:00 CHRISTY alejandro [facility] 2021-04-23 2021-04-23 Outpatient R EHSAN, [facility] [id number] Univers 11:00:00 11:00:00 ABA ity o f [facility] 2021-04-19 2021-04-19 Outpatient R TRAY [facility] [id number] Univers 12:00:00 12:00:00 ZAKIA [facility] Results Test Description Test Time Test Comments Results Result Comments Source POCT MOLECULAR FLU 2022-10-26 23:52:11 Test Item Value Reference Range Interpretation Comme nts POCT Molecular FluA (test code = 14598-4) Negative Negative POCT Molecular FluB (test code = 13752-1) Negative Negative Lab Interpretation (test code = 63812-1) Normal General acute hospital MOLECULAR [id number] 23:43:19 Test Item Value Reference Range Interpretation Comments POCT Molecular Strep (test code = Negative Negative 16742-1) Lab Interpretation (test code = Normal 44753-2) General acute hospital MOLECULAR [id number] 15:46:57 Test Item Value Reference Range Interpretation Comments POCT Molecular Strep (test code = Negative Negative 97790-4) Lab Interpretation (test code = Normal 39468-4) [facility]
--- NOTE | 2023-07-04 18:24 | EDPHYS ---
Physician Documentation [facility] Name: Stefan Duran Age: 23 yrs Sex: Male : 2000 Arrival Date: 07/04/2023 Time: 17:56 Bed IW4 Private MD: ED Physician Yoav Garcia HPI: 07/04 19:10 This 23 yrs old Male presents to ER via Ambulatory with complaints of Sore Throat. snw 19:10 The patient presents with sore throat. The patient describes throat pain as raw, snw suffocating. Onset: The symptoms/episode began/occurred acutely, 1 week(s) ago, and became persistent. Severity of symptoms: At their worst the symptoms were moderate. Associated signs and symptoms: The patient has no apparent associated signs or symptoms. It is unknown whether or not the patient has had similar symptoms in the past. Historical: - Allergies: 18:20 EGG/POULTRY; ll1 18:20 Nuts; ll1 - PMHx: 18:20 scoliosis; diaphgram hernia; Glaucoma; ll1 - PSHx: 18:20 back SX with rods; ll1 - Immunization history:: Adult Immunizations up to date. - Social history:: Smoking status: Patient reports the use of cigarette tobacco products, smokes one pack cigarettes per day. ROS: 19:10 Constitutional: Negative for fever, chills, and weight loss, Eyes: Negative for injury, snw pain, redness, and discharge, Neck: Negative for injury, pain, and swelling, Cardiovascular: Negative for chest pain, palpitations, and edema, Respiratory: Negative for shortness of breath, cough, wheezing, and pleuritic chest pain, Abdomen/GI: Negative for abdominal pain, nausea, vomiting, diarrhea, and constipation, Back: Negative for injury and pain, : Negative for injury, bleeding, discharge, and swelling, MS/Extremity: Negative for injury and deformity, Skin: Negative for injury, rash, and discoloration, Neuro: Negative for headache, weakness, numbness, tingling, and seizure, Psych: Negative for depression, anxiety, suicide ideation, homicidal ideation, and hallucinations, 19:10 ENT: Positive for sore throat, Exam: 19:10 Constitutional: This is a well developed, well nourished patient who is awake, alert, snw and in no acute distress. Head/Face: Normocephalic, atraumatic. Eyes: Pupils equal round and reactive to light, extra-ocular motions intact. Lids and lashes normal. Conjunctiva and sclera are non-icteric and not injected. Cornea within normal limits. Periorbital areas with no swelling, redness, or edema. ENT: Nares patent. No nasal discharge, no septal abnormalities noted. Tympanic membranes are normal and external auditory canals are clear. Oropharynx with redness, no swelling, or masses, exudates, or evidence of obstruction, uvula midline. Mucous membranes moist. Neck: Trachea midline, no thyromegaly or masses palpated, but mild anterior cervical lymphadenopathy. Supple, full range of motion without nuchal rigidity, or vertebral point tenderness. No Meningismus. Chest/axilla: Normal chest wall appearance and motion. Nontender with no deformity. No lesions are appreciated. Cardiovascular: Regular rate and rhythm with a normal S1 and S2. No gallops, murmurs, or rubs. Normal PMI, no JVD. No pulse deficits. Respiratory: Lungs have equal breath sounds bilaterally, clear to auscultation and percussion. No rales, rhonchi or wheezes noted. No increased work of breathing, no retractions or nasal flaring. Abdomen/GI: Soft, non-tender, with normal bowel sounds. No distension or tympany. No guarding or rebound. No evidence of tenderness throughout. Back: No spinal tenderness. No costovertebral tenderness. Full range of motion. Skin: Warm, dry with normal turgor. Normal color with no rashes, no lesions, and no evidence of cellulitis. MS/ Extremity: Pulses equal, no cyanosis. Neurovascular intact. Full, normal range of motion. Neuro: Awake and alert, GCS 15, oriented to person, place, time, and situation. Cranial nerves II-XII grossly intact. Motor strength 5/5 in all extremities. Sensory grossly intact. Cerebellar exam normal. Normal gait. Psych: Awake, alert, with orientation to person, place and time. Behavior, mood, and affect are within normal limits. Vital Signs: 18:21 BP 131 / 74; Pulse 76; Resp 16; Temp 98.8; Pulse Ox 99% ; Weight 58.97 kg; Height 5 ft. ll1 4 in. ; Pain 5/10; 18:21 Body Mass Index 22.31 (58.97 kg, 162.56 cm) ll1 18:21 Pain Scale: Adult ll1 MDM: 18:23 Patient medically screened. snw 19:17 Differential diagnosis: Allergic rhinitis, gastroesophageal reflux disease, influenza, snw pharyngitis. Data reviewed: vital signs, nurses notes. I considered the following discharge prescriptions or medication management in the emergency department Medications were administered in the Emergency Department. See MAR. Special discussion: Based on the history and exam findings, there is no indication for further emergent testing or inpatient evaluation. I discussed with the patient/guardian the need to see the primary care provider for further evaluation of the symptoms. Administered Medications: 18:34 Drug: AZITHromycin PO 500 mg PO once Route: PO; ll1 18:43 Follow up: Response: No adverse reaction ll1 18:34 Drug: Dexamethasone PO 4 mg PO once Route: PO; ll1 18:43 Follow up: Response: No adverse reaction ll1 Disposition: 07/05 10:03 Co-signature as Attending Physician, Yoav Garcia MD I reviewed the patient's care rn provided by the Advanced Practice Provider and agree with the diagnosis and treatment plan. Disposition Summary: 07/04/23 18:23 Discharge Ordered Notes: Location: Home snw Condition: Stable snw Diagnosis - Acute pharyngitis, unspecified snw Followup: snw - With: Emergency Department - When: As needed - Reason: Worsening of condition Followup: snw - With: Private Physician - When: 2 - 3 days - Reason: Recheck today's complaints, Continuance of care, Re-evaluation by your physician Discharge Instructions: - Pharyngitis snw - Steps to Quit Smoking snw - Sore Throat snw - Rehydration, Adult snw - Discharge Summary Sheet ll1 Forms: - Medication Reconciliation Form snw - Thank You Letter snw - Antibiotic Education snw - Prescription Opioid Use snw - Patient Portal Instructions snw - Leadership Thank You Letter snw - Work release form ll1 Prescriptions: - Zyrtec 10 mg Oral Tablet - take 1 tablet ORAL route once daily As needed; 20 tablet; Refills: 0, Product snw Selection Permitted - Pepcid 20 mg Oral Tablet - take 1 tablet ORAL route once daily; 20 tablet; Refills: 0, Product Selection snw Permitted - Zithromax 500 mg Oral Tablet - take 1 tablet ORAL route once daily for 5 days; 5 tablet; Refills: 0, Product snw Selection Permitted Signatures: Leeanna Boucher, RESIDENT CARE AIDE-C RESIDENT CARE AIDE-Csnw Yoav Garcia MD MD rn Kev Carter RN RN ll1
--- NOTE | 2023-07-04 18:24 | ER ---
Nurse's Notes [facility] Name: Stefan Duran Age: 23 yrs Sex: Male : 2000 Arrival Date: 07/04/2023 Time: 17:56 Bed IW4 Private MD: Diagnosis: Acute pharyngitis, unspecified Presentation: 07/04 18:21 Chief complaint: Patient states: Sore throat for 1 week. Coronavirus screen: Vaccine ll1 status: Patient reports receiving the 2nd dose of the covid vaccine. Client denies travel out of the [place] in the last 14 days. At this time, the client does not indicate any symptoms associated with coronavirus-19. Ebola Screen: Patient denies travel to an Ebola-affected area in the 21 days before illness onset. Initial Sepsis Screen: Does the patient meet any 2 criteria? No. Patient's initial sepsis screen is negative. Does the patient have a suspected source of infection? Yes: Other: sore throat. Risk Assessment: Do you want to hurt yourself or someone else? Patient reports no desire to harm self or others. Onset of symptoms was June 27, 2023. 18:21 Method Of Arrival: Ambulatory ll1 18:21 Acuity: ABHINAV 4 ll1 Triage Assessment: 18:22 General: Appears in no apparent distress. Behavior is calm, cooperative, appropriate ll1 for age. Pain: Complains of pain in throat Pain currently is 5 out of 10 on a pain scale. Quality of pain is described as aching. EENT: Reports pain in left ear when swallowing. Neuro: No deficits noted. Cardiovascular: No deficits noted. Historical: - Allergies: 18:20 EGG/POULTRY; ll1 18:20 Nuts; ll1 - PMHx: 18:20 scoliosis; diaphgram hernia; Glaucoma; ll1 - PSHx: 18:20 back SX with rods; ll1 - Immunization history:: Adult Immunizations up to date. - Social history:: Smoking status: Patient reports the use of cigarette tobacco products, smokes one pack cigarettes per day. Screenin:34 [facility] ED Fall Risk Assessment (Adult) Score/Fall Risk Level 0 - 2 = Low Risk ll1 Oriented to surroundings, Maintained a safe environment, Educated pt \T\ family on fall prevention, incl call for assistance when getting out of bed, Hourly rounding (assess needs \T\ fall precautionary measures) done. Abuse screen: Denies threats or abuse. Nutritional screening: No deficits noted. Tuberculosis screening: No symptoms or risk factors identified. Assessment: 18:34 Reassessment: No changes from previously documented assessment. Patient and/or family ll1 updated on plan of care and expected duration. Pain level reassessed. Patient is alert, oriented x 3, equal unlabored respirations, skin warm/dry/pink. 18:34 Respiratory: Airway is patent Respiratory effort is even, unlabored, Breath sounds are ll1 clear bilaterally. 18:34 EENT: Throat is reddened. ll1 Vital Signs: 18:21 BP 131 / 74; Pulse 76; Resp 16; Temp 98.8; Pulse Ox 99% ; Weight 58.97 kg; Height 5 ft. ll1 4 in. ; Pain 5/10; 18:21 Body Mass Index 22.31 (58.97 kg, 162.56 cm) ll1 18:21 Pain Scale: Adult [facility] ED Course: 18:11 Patient arrived in ED. ts1 18:13 [facility] Boucher [facility]C [facility] snw 18:13 Yoav Garcia MD is Attending Physician. snw 18:22 Triage completed. ll1 18:23 Arm band placed on. ll1 18:34 Patient has correct armband on for positive identification. Bed in low position. ll1 Provided Education on: n/a. 18:34 No provider procedures requiring assistance completed. Patient did not have IV access ll1 during this emergency room visit. Administered Medications: 18:34 Drug: AZITHromycin PO 500 mg PO once Route: PO; ll1 18:43 Follow up: Response: No adverse reaction ll1 18:34 Drug: Dexamethasone PO 4 mg PO once Route: PO; ll1 18:43 Follow up: Response: No adverse reaction 1 Medication: 18:34 VIS not applicable for this client. ll1 Outcome: 18:23 Discharge ordered by . snw 18:34 Patient left the ED. ll1 18:34 Discharged to home ambulatory, ll1 18:34 Condition: stable 18:34 Discharge instructions given to patient, Instructed on discharge instructions, follow up and referral plans. medication usage, Demonstrated understanding of instructions, follow-up care, medications, Prescriptions given X 3, Signatures: Leeanna Boucher FNP-C INSPECTION ENGINEER-Csnw Kev Carter, RN RN ll1 Keren Cook, PAS PAS ts1
[2023-07-04] MEDS ORDERED: AZITHROMYCIN 250 MG TAB ONE (18:40)
[2023-07-04] MEDS ORDERED: dexAMETHasone 4 MG TAB ONE (18:40)
== END 2023-07-04 18:34 | disposition home or self-care (01) ==
LOC: ER 17:56
DX: J02.9 Acute pharyngitis, unspecified (principal)
CPT/HCPCS: 99283; J8540

== ENCOUNTER 2023-07-07 10:37 | Emergency (ER) | payer SELFPAY ==
--- OUTSIDE RECORDS SUMMARY | 2023-07-07 10:42 | XMS REPORT | Continuity of Care Document ---
:[address] [facility] t Address [address] [place] [address]. [address] [place] [address] Care Team Providers Name Role Phone Cassie Joshi MD Primary Care Physician [phone] JM HOLLAND Attending Clinician Unavailable RADHA MIMS Attending Clinician Unavailable JACOB RICCI Attending Clinician Unavailable Radhames BRASHERPJacob Attending Clinician UNKNOWN, ATTENDING Attending Clinician Unavailable CASSIE JOSHI Attending Clinician Unavailable Radha Fuentes Attending Clinician JAYLIN MCCLENDON Attending Clinician Unavailable Jaylin Mcclendon PA-C Attending Clinician Unknown, Attending Attending Clinician Unavailable REEMA TEIXEIRA Attending Clinician Unavailable Reema Teixeira MD Attending Clinician Jesus [facility] Attending Clinician 2, [facility] Attending Clinician Unavailable Nurse, [facility] Attending Clinician Unavailable Doctor Unassigned, Clarks Attending Clinician Unavailable CHRISTINA ESTRELLA Attending Clinician Unavailable Christina Estrella MD Attending Clinician Misael Thornton RN Attending Clinician Unavailable ZAKIA PARKER Attending Clinician Unavailable Zakia Parker MD Attending Clinician DESIRE LOWERY Attending Clinician Unavailable Desire Gross Attending Clinician [phone] FRANK ANDRES Attending Clinician Unavailable Frank Connors Attending Clinician King JET MD, James C Attending Clinician CASSIE MCCLELLAND III Attending Clinician Unavailable GABRIELA ESPINOZA Attending Clinician Unavailable AdyGabriela Dowell Attending Clinician RADIOLOGY Attending Clinician Unavailable [...] Number Effective Date Expiration Date S corrie [facility] [id number] 2021 00:00:00 [facility] [id number] 2018 CHOICE MEDICAID 00:00:00 Problems Condition Condition Condition Status Onset Resolution Last Treating Co mments Source Name Details Category Date Date Treatment Clinician Date No known No known Disease Unive rs active active ity of problems problems [facility] Allergies, Adverse Reactions, Alerts Allergy Allergy Status Severity Reaction(s) Onset Inactive Treating Comm ents Source Name Type Date Date Clinician EGG DRUG Active High Hives Univers INGREDI 10-13 ity of 00:00: [place] [facility] PEANUT DRUG Active High Anaphylaxis Unive rs INGREDI 10-13 ity of 00:00: [place] 00 [facility] Egg Propensi Active Hives Univers ty to 10-13 ity of adverse 00:00: reaction 00 Medical s Branch Peanut Propensi Active Anaphylaxis Uni vers ty to 10-13 ity of adverse 00:00: [place] reaction 00 [facility] Branch NO KNOWN Drug Active Univers ALLERGIE Class ity of S [facility] Social History Social Habit Start Date Stop Date Quantity Comments Source History of tobacco Cigarette Smoker [place] of use [facility] Gender identity Universit y [facility] of Social 2023-02-22 2023-02-22 Univers ity of function 00:00:00 00:00:00 [facility] Exposure to 2023-01-24 2023-02-03 Not sure [facility] SARS-CoV-2 (event) 00:00:00 16:14:00 [facility] Alcohol intake 2021-04-30 2021-04-30 Ex-drinker [facility] 00:00:00 00:00:00 (finding) [facility] Cigarettes smoked 2021-04-23 2021-04-23 [facility] it of current (pack per 00:00:00 00:00:00 [facility] ) - Reported Branch Tobacco use and 2021-04-23 2021-04-23 Smokeless Universit y of exposure 00:00:00 00:00:00 tobacco non-user [facility] Sex Assigned At [birth year] Universit y of 00:00:00 00:00:00 [facility] Smoking Status Start Date Stop Date Source Smokes tobacco daily 2021-04-23 00:00:00 [facility] Medications Ordered Filled Start Stop Current Ordering Indication Dosage Frequency Signature Comments Components Source Medication Medication Date Date Medication? Clinician (SIG) Name Name methylPREDN Yes [id number] Take by Univers ISolone 03-19 mouth ity of (MEDROL, 00:00: SEE-INSTRU Jose Armando as MARTIN,) 4 mg 00 CTIONS. Medica l tablets follow Branch package directions methylPREDN 2022-0 Yes [id number] Take by Univers ISolone 03-19 mouth ity of (MEDROL, 00:00: SEE-INSTRU Jose Armando as MARTIN,) 4 mg 00 CTIONS. Medica l tablets follow Branch package directions methylPREDN 2022-0 Yes [id number] Take by Univers ISolone 03-19 mouth ity of (MEDROL, 00:00: SEE-INSTRU Jose Armando as MARTIN,) 4 mg 00 CTIONS. Medica l tablets follow Branch package directions amoxicillin 2022- No [id number] 1{tbl} Take 1 Univers -clavulanat 7-07 07-18 tablet by it y of e 00:00: 04:59 mouth in [place] (AUGMENTIN) 00 :00 the Medical 875-125 mg morning Branch per tablet and 1 tablet in the evening. Do all this for 10 days. amoxicillin 2022-0 2022- No [id number] 1{tbl} Take 1 Univers -clavulanat 7-07 07-18 tablet by it y of e 00:00: 04:59 mouth in [place] (AUGMENTIN) 00 :00 the Medical 875-125 mg morning Branch per tablet and 1 tablet in the evening. Do all this for 10 days. busPIRone 5 2022-0 Yes [id number] 5mg Take 1 Univers mg tablet 6-12 tablet by ity o f 00:00: mouth (two) Medical times Branch daily as needed for Other (anxiety). busPIRone 5 2022-0 Yes [id number] 5mg Take 1 Univers mg tablet 6-12 tablet by ity o f 00:00: mouth (two) Medical times Branch daily as needed for Other (anxiety). busPIRone 5 2022-0 Yes [id number] 5mg Take 1 Univers mg tablet 6-12 tablet by ity o f 00:00: mouth (two) Medical times Branch daily as needed for Other (anxiety). busPIRone 5 2022-0 Yes [id number] 5mg Take 1 Univers mg tablet 6-12 tablet by ity o f 00:00: mouth (two) Medical times Branch daily as needed for Other (anxiety). busPIRone 5 2022-0 Yes [id number] 5mg Take 1 Univers mg tablet 6-12 tablet by ity o f 00:00: mouth (two) Medical times Branch daily as needed for Other (anxiety). busPIRone 5 2022-0 Yes [id number] 5mg Take 1 Univers mg tablet 6-12 tablet by ity o f 00:00: mouth (two) Medical times Branch daily as needed for Other (anxiety). busPIRone 5 2022-0 Yes [id number] 5mg Take 1 Univers mg tablet 6-12 tablet by ity o f 00:00: mouth 2 [place] 00 (two) Medical times Branch daily as needed for Other (anxiety). nicotine 2022- No [id number] 1{patch Apply 1 Univers mg/24 hr 6-12 07-13 } Patch to ity of patch 00:00: 04:59 area(s) [place] 00 :00 every 24 Medical (twenty-fo Branch ur) hours for 30 days. nicotine 14 2022- No [id number] 1{patch Apply 1 Univers mg/24 hr 6-12 07-13 } Patch to ity of patch 00:00: 04:59 area(s) [place] 00 :00 every 24 Medical (twenty-fo Branch ur) hours for 30 days. nicotine 7 2022- No [id number] 1{patch Apply 1 Univers mg/24 hr 6-12 07-13 } Patch to ity of patch 00:00: 04:59 area(s) [place] 00 :00 every 24 Medical (twenty-fo Branch ur) hours for 30 days. nicotine 2022- No [id number] 1{patch Apply 1 Univers mg/24 hr 6-12 07-13 } Patch to ity of patch 00:00: 04:59 area(s) [place] 00 :00 every 24 Medical (twenty-fo Branch ur) hours for 30 days. nicotine No [id number] 1{patch Apply 1 Univers mg/24 hr 6-12 07-13 } Patch to ity of patch 00:00: 04:59 area(s) [place] 00 :00 every 24 Medical (twenty-fo Branch ur) hours for 30 days. nicotine 2022- No [id number] 1{patch Apply 1 Univers mg/24 hr 6-12 07-13 } Patch to ity of patch 00:00: 04:59 area(s) [place] 00 :00 every 24 Medical (twenty-fo Branch ur) hours for 30 days. nicotine 2022- No [id number] 1{patch Apply 1 Univers mg/24 hr 6-12 07-13 } Patch to ity of patch 00:00: 04:59 area(s) [place] 00 :00 every 24 Medical (twenty-fo Branch ur) hours for 30 days. nicotine 14 2022- No [id number] 1{patch Apply 1 Univers mg/24 hr 6-12 07-13 } Patch to ity of patch 00:00: 04:59 area(s) [place] 00 :00 every 24 Medical (twenty-fo Branch ur) hours for 30 days. nicotine 7 2022- No [id number] 1{patch Apply 1 Univers mg/24 hr 6-12 07-13 } Patch to ity of patch 00:00: 04:59 area(s) [place] 00 :00 every 24 Medical (twenty-fo Branch ur) hours for 30 days. nicotine 2022- No [id number] 1{patch Apply 1 Univers mg/24 hr 6-12 07-13 } Patch to ity of patch 00:00: 04:59 area(s) [place] 00 :00 every 24 Medical (twenty-fo Branch ur) hours for 30 days. nicotine 14 2022- No [id number] 1{patch Apply 1 Univers mg/24 hr 6-12 07-13 } Patch to ity of patch 00:00: 04:59 area(s) [place] 00 :00 every 24 Medical (twenty-fo Branch ur) hours for 30 days. nicotine 7 No [id number] 1{patch Apply 1 Univers mg/24 hr 6-12 07-13 } Patch to ity of patch 00:00: 04:59 area(s) [place] 00 :00 every 24 Medical (twenty-fo Branch ur) hours for 30 days. nicotine 2022- No [id number] 1{patch Apply 1 Univers mg/24 hr 6-12 07-13 } Patch to ity of patch 00:00: 04:59 area(s) [place] 00 :00 every 24 Medical (twenty-fo Branch ur) hours for 30 days. nicotine 14 2022- No [id number] 1{patch Apply 1 Univers mg/24 hr 6-12 07-13 } Patch to ity of patch 00:00: 04:59 area(s) [place] 00 :00 every 24 Medical (twenty-fo Branch ur) hours for 30 days. nicotine 7 2022- No [id number] 1{patch Apply 1 Univers mg/24 hr 6-12 07-13 } Patch to ity of patch 00:00: 04:59 area(s) [place] 00 :00 every 24 Medical (twenty-fo Branch ur) hours for 30 days. nicotine 21 2022- No [id number] 1{patch Apply 1 Univers mg/24 hr 02-22-13 } Patch to ity of patch 00:00: 04:59 area(s) [place] 00 :00 every 24 Medical (twenty-fo Branch ur) hours for 30 days. nicotine 14 2022-2022- No [id number] 1{patch Apply 1 Univers mg/24 hr 02-22-13 } Patch to ity of patch 00:00: 04:59 area(s) [place] 00 :00 every 24 Medical (twenty-fo Branch ur) hours for 30 days. nicotine 7 2022-2022- No [id number] 1{patch Apply 1 Univers mg/24 hr 02-22-13 } Patch to ity of patch 00:00: 04:59 area(s) [place] 00 :00 every 24 Medical (twenty-fo Branch ur) hours for 30 days. buPROPion 2022-2022- No [id number] 150mg Take 1 Univers SR 5-26 08-25 tablet by ity of (WELLBUTRIN 00:00: 04:59 mouth in [place] SR) 150 mg 00 :00 the Medical SR tablet morning Branch and 1 tablet in the evening. Do all this for 90 days. buPROPion 2022-2022- No [id number] 150mg Take 1 Univers SR 5-26 08-25 tablet by ity of (WELLBUTRIN 00:00: 04:59 mouth in [place] SR) 150 mg 00 :00 the Medical SR tablet morning Branch and 1 tablet in the evening. Do all this for 90 days. buPROPion 2022-0 2022- No [id number] 150mg Take 1 Univers SR 5-26 08-25 tablet by ity of (WELLBUTRIN 00:00: 04:59 mouth in [place] SR) 150 mg 00 :00 the Medical SR tablet morning Branch and 1 tablet in the evening. Do all this for 90 days. buPROPion 2022-0 2022- No [id number] 150mg Take 1 Univers SR 5-26 08-25 tablet by ity of (WELLBUTRIN 00:00: 04:59 mouth in [place] SR) 150 mg 00 :00 the Medical SR tablet morning Branch and 1 tablet in the evening. Do all this for 90 days. buPROPion 2022-0 2022- No [id number] 150mg Take 1 Univers SR 5-26 08-25 tablet by ity of (WELLBUTRIN 00:00: 04:59 mouth in [place] SR) 150 mg 00 :00 the Medical SR tablet morning Branch and 1 tablet in the evening. Do all this for 90 days. buPROPion 2022-0 2022- No [id number] 150mg Take 1 Univers SR 5-26 08-25 tablet by ity of (WELLBUTRIN 00:00: 04:59 mouth in [place] SR) 150 mg 00 :00 the Medical SR tablet morning Branch and 1 tablet in the evening. Do all this for 90 days. buPROPion 2022-0 2022- No [id number] 150mg Take 1 Univers SR 5-26 08-25 tablet by ity of (WELLBUTRIN 00:00: 04:59 mouth in [place] SR) 150 mg 00 :00 the Medical SR tablet morning Branch and 1 tablet in the evening. Do all this for 90 days. buPROPion 2022-0 2022- No [id number] 150mg Take 1 Univers SR 5-26 06-12 tablet by ity of (WELLBUTRIN 00:00: 00:00 mouth in [place] SR) 150 mg 00 :00 the Medical SR tablet morning Branch and 1 tablet in the evening. Do all this for 90 days. buPROPion 2022-0 2022- No [id number] 150mg Take 1 Univers SR 5-26 06-12 tablet by ity of (WELLBUTRIN 00:00: 00:00 mouth in [place] SR) 150 mg 00 :00 the Medical SR tablet morning Branch and 1 tablet in the evening. Do all this for 90 days. albuterol Yes [id number] 2{puff} Inhale 2 Univers 90 5-25 Puffs ity of mcg/actuati 00:00: every 6 Jose Armando as on inhaler 00 (six) Medical hours as Branch needed for Wheezing or Shortness of Breath. albuterol Yes [id number] 2{puff} Inhale 2 Univers 90 5-25 Puffs ity of mcg/actuati 00:00: every 6 Jose Armando as on inhaler 00 (six) Medical hours as Branch needed for Wheezing or Shortness of Breath. albuterol Yes [id number] 2{puff} Inhale 2 Univers 90 5-25 Puffs ity of mcg/actuati 00:00: every 6 Jose Armando as on inhaler 00 (six) Medical hours as Branch needed for Wheezing or Shortness of Breath. albuterol Yes [id number] 2{puff} Inhale 2 Univers 90 5-25 Puffs ity of mcg/actuati 00:00: every 6 Jose Armando as on inhaler 00 (six) Medical hours as Branch needed for Wheezing or Shortness of Breath. albuterol Yes [id number] 2{puff} Inhale 2 Univers 90 5-25 Puffs ity of mcg/actuati 00:00: every 6 Jose Armando as on inhaler 00 (six) Medical hours as Branch needed for Wheezing or Shortness of Breath. albuterol Yes [id number] 2{puff} Inhale 2 Univers 90 5-25 Puffs ity of mcg/actuati 00:00: every 6 Jose Armando as on inhaler 00 (six) Medical hours as Branch needed for Wheezing or Shortness of Breath. albuterol Yes [id number] 2{puff} Inhale 2 Univers 90 5-25 Puffs ity of mcg/actuati 00:00: every 6 Jose Armando as on inhaler 00 (six) Medical hours as Branch needed for Wheezing or Shortness of Breath. albuterol Yes [id number] 2{puff} Inhale 2 Univers 90 5-25 Puffs ity of mcg/actuati 00:00: every 6 Jose Armando as on inhaler 00 (six) Medical hours as Branch needed for Wheezing or Shortness of Breath. albuterol Yes [id number] 2{puff} Inhale 2 Univers 90 5-25 Puffs ity of mcg/actuati 00:00: every 6 Jose Armando as on inhaler 00 (six) Medical hours as Branch needed for Wheezing or Shortness of Breath. albuterol Yes [id number] 2{puff} Inhale 2 Univers 90 5-25 Puffs ity of mcg/actuati 00:00: every 6 Jose Armando as on inhaler 00 (six) Medical hours as Branch needed for Wheezing or Shortness of Breath. albuterol Yes [id number] 2{puff} Inhale 2 Univers 90 5-25 Puffs ity of mcg/actuati 00:00: every 6 Jose Armando as on inhaler 00 (six) Medical hours as Branch needed for Wheezing or Shortness of Breath. albuterol Yes [id number] 2{puff} Inhale 2 Univers 90 5-25 Puffs ity of mcg/actuati 00:00: every 6 Jose Armando as on inhaler 00 (six) Medical hours as Branch needed for Wheezing or Shortness of Breath. albuterol Yes [id number] 2{puff} Inhale 2 Univers 90 5-25 Puffs ity of mcg/actuati 00:00: every 6 Jose Armando as on inhaler 00 (six) Medical hours as Branch needed for Wheezing or Shortness of Breath. albuterol Yes [id number] 2{puff} Inhale 2 Univers 90 5-25 Puffs ity of mcg/actuati 00:00: every 6 Jose Armando as on inhaler 00 (six) Medical hours as Branch needed for Wheezing or Shortness of Breath. albuterol Yes [id number] 2{puff} Inhale 2 Univers 90 5-25 Puffs ity of mcg/actuati 00:00: every 6 Jose Armando as on inhaler 00 (six) Medical hours as Branch needed for Wheezing or Shortness of Breath. albuterol Yes [id number] 2{puff} Inhale 2 Univers 90 5-25 Puffs [...] NOT CRUSH Branch OR CHEW azelastine Yes [id number] 1{spray Use 1 Univers 137 mcg 2-13 } [place] in ity of (0.1 %) 00:00: each [place] nasal spray 00 nostril in Me dical the Branch morning and 1 [place] in the evening. Use in each nostril as directed fluticasone 2022-0 Yes [id number] 1{spray Use 1 Univers propionate 2-13 } [place] in ity o f 50 00:00: each [place] mcg/actuati 00 nostril in Me dical on nasal the Branch spray morning. ibuprofen 2022-0 Yes [id number] 600mg Take 1 U nivers 600 mg 2-13 tablet by ity of tablet 00:00: mouth [place] 00 every 6 Medical (six) Branch hours as needed for Pain (scale 4-6) or Pain (scale 1-3). maalox/diph 2022-0 Yes [id number] 5mL Take 5 mL Univers enhydrAMINE 2-13 by mouth 3 it y of :lidocaine2 00:00: (three) Jose Armando as % viscous 00 times Medical 1:1:1 Susp daily as Branc h suspension needed (gargle and spit). azelastine 2022-0 Yes [id number] 1{spray Use 1 Univers 137 mcg 2-13 } [place] in ity of (0.1 %) 00:00: each [place] nasal spray 00 nostril in Mt dical the Branch morning and 1 [place] in the evening. Use in each nostril as directed fluticasone 2022-0 Yes [id number] 1{spray Use 1 Univers propionate 2-13 } [place] in ity o f 50 00:00: each [place] mcg/actuati 00 nostril in Mt dical on nasal the Branch spray morning. ibuprofen 2022-0 Yes [id number] 600mg Take 1 U nivers 600 mg 2-13 tablet by ity of tablet 00:00: mouth [place] 00 every 6 Medical (six) Branch hours as needed for Pain (scale 4-6) or Pain (scale 1-3). maalox/diph 2022-0 Yes [id number] 5mL Take 5 mL Univers enhydrAMINE 2-13 by mouth 3 it y of :lidocaine2 00:00: (three) Jose Armando as % viscous 00 times Medical 1:1:1 Susp daily as Branc h suspension needed (gargle and spit). azelastine 2023-0 Yes [id number] 1{spray Use 1 Univers 137 mcg 2-13 } [place] in ity of (0.1 %) 00:00: each [place] nasal spray 00 nostril in Mt dical the Branch morning and 1 [place] in the evening. Use in each nostril as directed fluticasone 0 Yes [id number] 1{spray Use 1 Univers propionate 2-13 } Andrews in ity o f 50 00:00: each [place] mcg/actuati 00 nostril in Mt dical on nasal the Branch spray morning. ibuprofen 0 Yes [id number] 600mg Take 1 U nivers 600 mg 2-13 tablet by ity of tablet 00:00: mouth [place] 00 every 6 Medical (six) Branch hours as needed for Pain (scale 4-6) or Pain (scale 1-3). maalox/diph 0 Yes [id number] 5mL Take 5 mL Univers enhydrAMINE 2-13 by mouth 3 it y of :lidocaine2 00:00: (three) Jose Armando as % viscous 00 times Medical 1:1:1 Susp daily as Branc h suspension needed (gargle and spit). azelastine Yes [id number] 1{spray Use 1 Univers 137 mcg 2-13 } [place] in ity of (0.1 %) 00:00: each [place] nasal spray 00 nostril in Mt dical the Branch morning and 1 [place] in the evening. Use in each nostril as directed fluticasone Yes [id number] 1{spray Use 1 Univers propionate 2-13 } Andrews in ity o f 50 00:00: each [place] mcg/actuati 00 nostril in Mt dical on nasal the Branch spray morning. ibuprofen 0 Yes [id number] 600mg Take 1 U nivers 600 mg 2-13 tablet by ity of tablet 00:00: mouth [place] 00 every 6 Medical (six) Branch hours as needed for Pain (scale 4-6) or Pain (scale 1-3). maalox/diph 2022-0 Yes [id number] 5mL Take 5 mL Univers enhydrAMINE 2-13 by mouth 3 it y of :lidocaine2 00:00: (three) Jose Armando as % viscous 00 times Medical 1:1:1 Susp daily as Branc h suspension needed (gargle and spit). azelastine 2022-0 Yes [id number] 1{spray Use 1 Univers 137 mcg 2-13 } [place] in ity of (0.1 %) 00:00: each [place] nasal spray 00 nostril in Me dical the Branch morning and 1 [place] in the evening. Use in each nostril as directed fluticasone 2022-0 Yes [id number] 1{spray Use 1 Univers propionate 2-13 } [place] in ity o f 50 00:00: each [place] mcg/actuati 00 nostril in Me dical on nasal the Branch spray morning. ibuprofen 2022-0 Yes [id number] 600mg Take 1 U nivers 600 mg 2-13 tablet by ity of tablet 00:00: mouth [place] 00 every 6 Medical (six) Branch hours as needed for Pain (scale 4-6) or Pain (scale 1-3). maalox/diph 2022-0 Yes [id number] 5mL Take 5 mL Univers enhydrAMINE 2-13 by mouth 3 it y of :lidocaine2 00:00: (three) Jose Armando as % viscous 00 times Medical 1:1:1 Susp daily as Branc h suspension needed (gargle and spit). azelastine 2022-0 Yes [id number] 1{spray Use 1 Univers 137 mcg 2-13 } [place] in ity of (0.1 %) 00:00: each [place] nasal spray 00 nostril in Mt dical the Branch morning and 1 [place] in the evening. Use in each nostril as directed fluticasone 2022-0 Yes [id number] 1{spray Use 1 Univers propionate 2-13 } Andrews in ity o f 50 00:00: each [place] mcg/actuati 00 nostril in Mt dical on nasal the Branch spray morning. ibuprofen 2022-0 Yes [id number] 600mg Take 1 U nivers 600 mg 2-13 tablet by ity of tablet 00:00: mouth [place] 00 every 6 Medical (six) Branch hours as needed for Pain (scale 4-6) or Pain (scale 1-3). maalox/diph 2022-0 Yes [id number] 5mL Take 5 mL Univers enhydrAMINE 2-13 by mouth 3 it y of :lidocaine2 00:00: (three) Jose Armando as % viscous 00 times Medical 1:1:1 Susp daily as Branc h suspension needed (gargle and spit). azelastine 2022-0 Yes [id number] 1{spray Use 1 Univers 137 mcg 2-13 } Andrews in ity of (0.1 %) 00:00: each [place] nasal spray 00 nostril in Me dical the Branch morning and 1 [place] in the evening. Use in each nostril as directed fluticasone 2022-0 Yes [id number] 1{spray Use 1 Univers propionate 2-13 } Andrews in ity o f 50 00:00: each [place] mcg/actuati 00 nostril in Me dical on nasal the Branch spray morning. ibuprofen 2022-0 Yes [id number] 600mg Take 1 U nivers 600 mg 2-13 tablet by ity of tablet 00:00: mouth [place] 00 every 6 Medical (six) Branch hours as needed for Pain (scale 4-6) or Pain (scale 1-3). maalox/diph 2022-0 Yes [id number] 5mL Take 5 mL Univers enhydrAMINE 2-13 by mouth 3 it y of :lidocaine2 00:00: (three) Jose Armando as % viscous 00 times Medical 1:1:1 Susp daily as Branc h suspension needed (gargle and spit). azelastine 2022-0 Yes [id number] 1{spray Use 1 Univers 137 mcg 2-13 } [place] in ity of (0.1 %) 00:00: each [place] nasal spray 00 nostril in Me dical the Branch morning and 1 [place] in the evening. Use in each nostril as directed fluticasone 2022-0 Yes [id number] 1{spray Use 1 Univers propionate 2-13 } Andrews in ity o f 50 00:00: each [place] mcg/actuati 00 nostril in Me dical on nasal the Branch spray morning. ibuprofen 2022-0 Yes [id number] 600mg Take 1 U nivers 600 mg 2-13 tablet by ity of tablet 00:00: mouth [place] 00 every 6 Medical (six) Branch hours as needed for Pain (scale 4-6) or Pain (scale 1-3). maalox/diph 2023-0 Yes [id number] 5mL Take 5 mL Univers enhydrAMINE 2-13 by mouth 3 it y of :lidocaine2 00:00: (three) Jose Armando as % viscous 00 times Medical 1:1:1 Susp daily as Branc h suspension needed (gargle and spit). azelastine Yes [id number] 1{spray Use 1 Univers 137 mcg 2-13 } Andrews in ity of (0.1 %) 00:00: each [place] nasal spray 00 nostril in Me dical the Branch morning and 1 [place] in the evening. Use in each nostril as directed fluticasone 0 Yes [id number] 1{spray Use 1 Univers propionate 2-13 } Andrews in ity o f 50 00:00: each [place] mcg/actuati 00 nostril in Me dical on nasal the Branch spray morning. ibuprofen Yes [id number] 600mg Take 1 U nivers 600 mg 2-13 tablet by ity of tablet 00:00: mouth [place] 00 every 6 Medical (six) Branch hours as needed for Pain (scale 4-6) or Pain (scale 1-3). maalox/diph Yes [id number] 5mL Take 5 mL Univers enhydrAMINE 2-13 by mouth 3 it y of :lidocaine2 00:00: (three) Jose Armando as % viscous 00 times Medical 1:1:1 Susp daily as Branc h suspension needed (gargle and spit). azelastine 2022- No [id number] 1{spray Use 1 Univers 137 mcg 2-13 05-25 } Andrews in ity of (0.1 %) 00:00: 00:00 each [place] nasal spray 00 :00 nostril in Me dical the Branch morning and 1 [place] in the evening. Use in each nostril as directed fluticasone 0 202- No [id number] 1{spray Use 1 Univers propionate 2-13 05-25 } Andrews in ity of 50 00:00: 00:00 each [place] mcg/actuati 00 :00 nostril in Me dical on nasal the Branch spray morning. ibuprofen 0 3- No [id number] 600mg Take 1 Univers 600 mg 2-13 05-25 tablet by ity of tablet 00:00: 00:00 mouth [place] 00 :00 every 6 Medical (six) Branch hours as needed for Pain (scale 4-6) or Pain (scale 1-3). maalox/diph 2022- No [id number] 5mL Take 5 mL Univers enhydrAMINE 2 05-25 by mouth 3 i ty of :lidocaine2 00:00: 00:00 (three) [place] % viscous 00 :00 times Medical 1:1:1 Susp daily as Branc h suspension needed (gargle and spit). azelastine 2022- No [id number] 1{spray Use 1 Univers 137 mcg 10-2625 } Andrews in ity of (0.1 %) 00:00: 00:00 each [place] nasal spray 00 :00 nostril in Mt dical the Branch morning and 1 [place] in the evening. Use in each nostril as directed fluticasone 2022- No [id number] 1{spray Use 1 Univers propionate 10-2625 } [place] in ity of 50 00:00: 00:00 each [place] mcg/actuati 00 :00 nostril in Mt dical on nasal the Branch spray morning. ibuprofen 2022- No [id number] 600mg Take 1 Univers 600 mg 10-26-25 tablet by ity of tablet 00:00: 00:00 mouth [place] 00 :00 every 6 Medical (six) Branch hours as needed for Pain (scale 4-6) or Pain (scale 1-3). maalox/diph 2022- No [id number] 5mL Take 5 mL [facility] enhydrAMINE 10-26-25 by mouth 3 i ty of :lidocaine2 00:00: 00:00 (three) [place] % viscous 00 :00 times Medical 1:1:1 Susp daily as Branc h suspension needed (gargle and spit). meloxicam 2022- No [id number] 15mg Take 1 [facility] 15 mg 10-13 tablet by ity of tablet 00:00: 05:59 mouth in [place] 00 :00 the Medical morning Branch for 30 days. methocarbam 2022- No [id number] 500mg Take 1 [facility] oL 500 mg 10-13 tablet by ity of tablet 00:00: 05:59 mouth [place] 00 :00 every Medical evening Branch for 30 days. meloxicam 2022-2022- No [id number] 15mg Take 1 [facility] 15 mg 10-13- tablet by ity of tablet 00:00: 05:59 mouth in [place] 00 :00 the Medical morning Branch for 30 days. methocarbam 2023-0 2022- No [id number] 500mg Take 1 [facility] oL 500 mg 10-13 tablet by ity of tablet 00:00: 05:59 mouth [place] 00 :00 every Medical evening Branch for 30 days. meloxicam 3-0 2022- No [id number] 15mg Take 1 [facility] 15 mg 10-13- tablet by ity of tablet 00:00: 05:59 mouth in [place] 00 :00 the Medical morning Branch for 30 days. methocarbam 3-0 2022- No [id number] 500mg Take 1 [facility] oL 500 mg 10-13 tablet by ity of tablet 00:00: 05:59 mouth [place] 00 :00 every Medical evening Branch for 30 days. meloxicam 3-0 2022- No [id number] 15mg Take 1 [facility] 15 mg 10-13 tablet by ity of tablet 00:00: 05:59 mouth in [place] 00 :00 the Medical morning Branch for 30 days. methocarbam 2022-0 2022- No [id number] 500mg Take 1 [facility] oL 500 mg 10-13 tablet by ity of tablet 00:00: 05:59 mouth [place] 00 :00 every Medical evening Branch for 30 days. meloxicam 3-0 2022- No [id number] 15mg Take 1 [facility] 15 mg 10-13 tablet by ity of tablet 00:00: 05:59 mouth in [place] 00 :00 the Medical morning Branch for 30 days. methocarbam 3-0 2022- No [id number] 500mg Take 1 [facility] oL 500 mg 10-13 tablet by ity of tablet 00:00: 05:59 mouth [place] 00 :00 every Medical evening Branch for 30 days. meloxicam 2023-0 2022- No [id number] 15mg Take 1 [facility] 15 mg 10-13 tablet by ity of tablet 00:00: 05:59 mouth in [place] 00 :00 the Medical morning Branch for 30 days. methocarbam 2023-0 2023- No [id number] 500mg Take 1 [facility] oL 500 mg 10-13- tablet by ity of tablet 00:00: 05:59 mouth [place] 00 :00 every Medical evening Branch for 30 days. meloxicam 2023-0 202- No [id number] 15mg Take 1 [facility] 15 mg 10-13- tablet by ity of tablet 00:00: 05:59 mouth in [place] 00 :00 the Medical morning Branch for 30 days. methocarbam 2023-0 2022- No [id number] 500mg Take 1 [facility] oL 500 mg 10-13- tablet by ity of tablet 00:00: 05:59 mouth [place] 00 :00 every Medical evening Branch for 30 days. meloxicam 202-0 2022- No [id number] 15mg Take 1 [facility] 15 mg 10-13 tablet by ity of tablet 00:00: 05:59 mouth in [place] 00 :00 the Medical morning Branch for 30 days. methocarbam 2022-0 2022- No [id number] 500mg Take 1 [facility] oL 500 mg 10-13 tablet by ity of tablet 00:00: 05:59 mouth [place] 00 :00 every Medical evening Branch for 30 days. meloxicam 2022-0 2022- No [id number] 15mg Take 1 [facility] 15 mg 10-13 tablet by ity of tablet 00:00: 05:59 mouth in [place] 00 :00 the Medical morning Branch for 30 days. methocarbam 3-0 2022- No [id number] 500mg Take 1 [facility] oL 500 mg 10-13 tablet by ity of tablet 00:00: 05:59 mouth [place] 00 :00 every Medical evening Branch for 30 days. meloxicam 2022-0 2022- No [id number] 15mg Take 1 [facility] 15 mg 10-13- tablet by ity of tablet 00:00: 05:59 mouth in [place] 00 :00 the Medical morning Branch for 30 days. methocarbam 2023-0 2022- No [id number] 500mg Take 1 [facility] oL 500 mg 10-13 tablet by ity of tablet 00:00: 05:59 mouth [place] 00 :00 every Medical evening Branch for 30 days. meloxicam 2023-0 2023- No [id number] 15mg Take 1 [facility] 15 mg 10-13 tablet by ity of tablet 00:00: 05:59 mouth in [place] 00 :00 the Medical morning Branch for 30 days. methocarbam 2023-0 2022- No [id number] 500mg Take 1 [facility] oL 500 mg 10-13 tablet by ity of tablet 00:00: 05:59 mouth [place] 00 :00 every Medical evening Branch for 30 days. meloxicam 2023-0 2022- No [id number] 15mg Take 1 [facility] 15 mg 10-13 tablet by ity of tablet 00:00: 05:59 mouth in [place] 00 :00 the Medical morning Branch for 30 days. methocarbam 2022-0 2022- No [id number] 500mg Take 1 [facility] oL 500 mg 10-13 tablet by ity of tablet 00:00: 05:59 mouth [place] 00 :00 every Medical evening Branch for 30 days. pantoprazol 2023-0 Yes [id number] 40mg Take 1 [facility] e 40 mg EC 1-04 tablet by ity of tablet 00:00: mouth in [place] 00 the Medical morning Branch and 1 tablet in the evening. ondansetron 2023-0 Yes [id number] 4mg Take 1 [facility] 4 mg tablet 1-04 tablet by ity of 00:00: mouth [place] 00 every 8 Medical (eight) Branch hours as needed for Nausea and Vomiting (N/V). pantoprazol 2023-0 Yes [id number] 40mg Take 1 [facility] e 40 mg EC 1-04 tablet by ity of tablet 00:00: mouth in [place] 00 the Medical morning Branch and 1 tablet in the evening. ondansetron 2023-0 Yes [id number] 4mg Take 1 [facility] 4 mg tablet 1-04 tablet by ity of 00:00: mouth [place] 00 every 8 Medical (eight) Branch hours as needed for Nausea and Vomiting (N/V). pantoprazol 2023-0 Yes [id number] 40mg Take 1 [facility] e 40 mg EC 1-04 tablet by ity of tablet 00:00: mouth in [place] 00 the Medical morning Branch and 1 tablet in the evening. ondansetron 2023-0 Yes [id number] 4mg Take 1 [facility] 4 mg tablet 1-04 tablet by ity of 00:00: mouth [place] 00 every 8 Medical (eight) Branch hours as needed for Nausea and Vomiting (N/V). pantoprazol 2023-0 Yes [id number] 40mg Take 1 [facility] e 40 mg EC 1-04 tablet by ity of tablet 00:00: mouth in [place] 00 the Medical morning Branch and 1 tablet in the evening. ondansetron 2023-0 Yes [id number] 4mg Take 1 [facility] 4 mg tablet 1-04 tablet by ity of 00:00: mouth [place] 00 every 8 Medical (eight) Branch hours as needed for Nausea and Vomiting (N/V). pantoprazol 2023-0 Yes [id number] 40mg Take 1 [facility] e 40 mg EC 1-04 tablet by ity of tablet 00:00: mouth in [place] 00 the Medical morning Branch and 1 tablet in the evening. ondansetron 2023-0 Yes [id number] 4mg Take 1 [facility] 4 mg tablet 1-04 tablet by ity of 00:00: mouth [place] 00 every 8 Medical (eight) Branch hours as needed for Nausea and Vomiting (N/V). pantoprazol 2023-0 Yes [id number] 40mg Take 1 [facility] e 40 mg EC 1-04 tablet by ity of tablet 00:00: mouth in [place] 00 the Medical morning Branch and 1 tablet in the evening. ondansetron 2023-0 Yes [id number] 4mg Take 1 [facility] 4 mg tablet 1-04 tablet by ity of 00:00: mouth [place] 00 every 8 Medical (eight) Branch hours as needed for Nausea and Vomiting (N/V). pantoprazol 2023-0 Yes [id number] 40mg Take 1 [facility] e 40 mg EC 1-04 tablet by ity of tablet 00:00: mouth in [place] 00 the Medical morning Branch and 1 tablet in the evening. ondansetron 2023-0 Yes [id number] 4mg Take 1 [facility] 4 mg tablet 1-04 tablet by ity of 00:00: mouth [place] 00 every 8 Medical (eight) Branch hours as needed for Nausea and Vomiting (N/V). pantoprazol 2023-0 Yes [id number] 40mg Take 1 [facility] e 40 mg EC 1-04 tablet by ity of tablet 00:00: mouth in [place] 00 the Medical morning Branch and 1 tablet in the evening. ondansetron 2023-0 Yes [id number] 4mg Take 1 [facility] 4 mg tablet 1-04 tablet by ity of 00:00: mouth [place] 00 every 8 Medical (eight) Branch hours as needed for Nausea and Vomiting (N/V). pantoprazol 2023-0 Yes [id number] 40mg Take 1 [facility] e 40 mg EC 1-04 tablet by ity of tablet 00:00: mouth in [place] 00 the Medical morning Branch and 1 tablet in the evening. ondansetron 2023-0 Yes [id number] 4mg Take 1 [facility] 4 mg tablet 1-04 tablet by ity of 00:00: mouth [place] 00 every 8 Medical (eight) Branch hours as needed for Nausea and Vomiting (N/V). pantoprazol 2023-0 Yes [id number] 40mg Take 1 [facility] e 40 mg EC 1-04 tablet by ity of tablet 00:00: mouth in [place] 00 the Medical morning Branch and 1 tablet in the evening. ondansetron 2023-0 Yes [id number] 4mg Take 1 [facility] 4 mg tablet 1-04 tablet by ity of 00:00: mouth [place] 00 every 8 Medical (eight) Branch hours as needed for Nausea and Vomiting (N/V). pantoprazol 2023-0 Yes [id number] 40mg Take 1 [facility] e 40 mg EC 1-04 tablet by ity of tablet 00:00: mouth in [place] 00 the Medical morning Branch and 1 tablet in the evening. ondansetron 2023-0 Yes [id number] 4mg Take 1 [facility] 4 mg tablet 1-04 tablet by ity of 00:00: mouth [place] 00 every 8 Medical (eight) Branch hours as needed for Nausea and Vomiting (N/V). pantoprazol 2023-0 Yes [id number] 40mg Take 1 [facility] e 40 mg EC 1-04 tablet by ity of tablet 00:00: mouth in [place] 00 the Medical morning Branch and 1 tablet in the evening. ondansetron 2023-0 Yes [id number] 4mg Take 1 [facility] 4 mg tablet 1-04 tablet by ity of 00:00: mouth [place] 00 every 8 Medical (eight) Branch hours as needed for Nausea and Vomiting (N/V). pantoprazol 2023-0 Yes [id number] 40mg Take 1 [facility] e 40 mg EC 1-04 tablet by ity of tablet 00:00: mouth in [place] 00 the Medical morning Branch and 1 tablet in the evening. ondansetron 2023-0 Yes [id number] 4mg Take 1 [facility] 4 mg tablet 1-04 tablet by ity of 00:00: mouth [place] 00 every 8 Medical (eight) Branch hours as needed for Nausea and Vomiting (N/V). pantoprazol 2023-0 Yes [id number] 40mg Take 1 [facility] e 40 mg EC 1-04 tablet by ity of tablet 00:00: mouth in [place] 00 the Medical morning Branch and 1 tablet in the evening. ondansetron 2023-0 Yes [id number] 4mg Take 1 [facility] 4 mg tablet 1-04 tablet by ity of 00:00: mouth [place] 00 every 8 Medical (eight) Branch hours as needed for Nausea and Vomiting (N/V). pantoprazol 2023-0 Yes [id number] 40mg Take 1 [facility] e 40 mg EC 1-04 tablet by ity of tablet 00:00: mouth in [place] 00 the Medical morning Branch and 1 tablet in the evening. ondansetron 2023-0 Yes [id number] 4mg Take 1 [facility] 4 mg tablet 1-04 tablet by ity of 00:00: mouth [place] 00 every 8 Medical (eight) Branch hours as needed for Nausea and Vomiting (N/V). pantoprazol 2023-0 Yes [id number] 40mg Take 1 [facility] e 40 mg EC 1-04 tablet by ity of tablet 00:00: mouth in [place] 00 the Medical morning Branch and 1 tablet in the evening. ondansetron 2023-0 Yes [id number] 4mg Take 1 [facility] 4 mg tablet 1-04 tablet by ity of 00:00: mouth [place] 00 every 8 Medical (eight) Branch hours as needed for Nausea and Vomiting (N/V). pantoprazol 2023-0 Yes [id number] 40mg Take 1 [facility] e 40 mg EC 1-04 tablet by ity of tablet 00:00: mouth in [place] 00 the Medical morning Branch and 1 tablet in the evening. ondansetron 2023-0 Yes [id number] 4mg Take 1 [facility] 4 mg tablet 1-04 tablet by ity of 00:00: mouth [place] 00 every 8 Medical (eight) Branch hours as needed for Nausea and Vomiting (N/V). pantoprazol 2023-0 2023- No [id number] 40mg Take 1 [facility] e 40 mg EC 1-04 05-25 tablet by ity of tablet 00:00: 00:00 mouth in [place] 00 :00 the Medical morning Branch and 1 tablet in the evening. ondansetron 2022- No [id number] 4mg Take 1 [facility] 4 mg tablet 09-16 tablet by it y of 00:00: 00:00 mouth [place] 00 :00 every 8 Medical (eight) Branch hours as needed for Nausea and Vomiting (N/V). pantoprazol 2022- No [id number] 40mg Take 1 [facility] e 40 mg EC 09-16 tablet by ity of tablet 00:00: 00:00 mouth in [place] 00 :00 the Medical morning Branch and 1 tablet in the evening. ondansetron 2022- No [id number] 4mg Take 1 [facility] 4 mg tablet 09-16 tablet by it y of 00:00: 00:00 mouth [place] 00 :00 every 8 Medical (eight) Branch hours as needed for Nausea and Vomiting (N/V). sulfamethox 2021-09- No [id number] 1{tbl} Take 1 [facility] azole-trime 1-13 11-21 tablet by it y of thoprim 00:00: 05:59 mouth in [place] ([facility]CTRIM 00 :00 the Medical ) 800-160 morning Branc h mg per and 1 tablet tablet in the evening. Do all this for 7 days. sulfamethox 2021-09- No [id number] 1{tbl} Take 1 [facility] azole-trime 1-13 11-21 tablet by it y of thoprim 00:00: 05:59 mouth in [place] (BACTRIM 00 :00 the Medical ) 800-160 morning Branc h mg per and 1 tablet tablet in the evening. Do all this for 7 days. sulfamethox 2021-09- No [id number] 1{tbl} Take 1 [facility] azole-trime 1-13 11-21 tablet by it y of thoprim 00:00: 05:59 mouth in [place] ([place]CTRIM 00 :00 the Medical DS) 800-160 morning Branc h mg per and 1 tablet tablet in the evening. Do all this for 7 days. varenicline Yes [id number] 1mg Take 1 [facility] 1 mg tablet 8-23 tablet by ity of 00:00: mouth 2 [place] 00 (two) Medical times Branch daily. terbinafine Yes [id number] 250mg Take 1 [facility] HCL 250 mg 8-23 tablet by ity of tablet 00:00: mouth [place] 00 daily. Medical Branch varenicline Yes [id number] 1mg Take 1 [facility] 1 mg tablet 8-23 tablet by ity of 00:00: mouth 2 [place] 00 (two) Medical times Branch daily. terbinafine Yes [id number] 250mg Take 1 [facility] HCL 250 mg 8-23 tablet by ity of tablet 00:00: mouth [place] 00 daily. Medical Branch varenicline Yes [id number] 1mg Take 1 [facility] 1 mg tablet 8-23 tablet by ity of 00:00: mouth 2 [place] 00 (two) Medical times Branch daily. terbinafine Yes [id number] 250mg Take 1 [facility] HCL 250 mg 8-23 tablet by ity of tablet 00:00: mouth 00 daily. Medical Branch varenicline Yes [id number] 1mg Take 1 [facility] 1 mg tablet 8-23 tablet by ity of 00:00: mouth 2 [place] 00 (two) Medical times Branch daily. terbinafine Yes [id number] 250mg Take 1 [facility] HCL 250 mg 8-23 tablet by ity of tablet 00:00: mouth 00 daily. Medical Branch varenicline 2021- No [id number] 1mg Take 1 [facility] 1 mg tablet 8-06-08 tablet by it y of 00:00: 00:00 mouth 2 [place] 00 :00 (two) Medical times Branch daily. terbinafine 2021- No [id number] 250mg Take 1 [facility] HCL 250 mg 8-05 06- tablet by ity of tablet 00:00: 00:00 mouth [place] 00 :00 daily. Medical Branch varenicline 2021- No [id number] 1mg Take 1 [facility] 1 mg tablet 8-05 06- tablet by it y of 00:00: 00:00 mouth 2 [place] 00 :00 (two) Medical times Branch daily. terbinafine 2021- No [id number] 250mg Take 1 [facility] HCL 250 mg 8-23 - tablet by ity of tablet 00:00: 00:00 mouth [place] 00 :00 daily. Medical Branch busPIRone 5 Yes [id number] 5mg Take 1 [facility] mg tablet 8-18 tablet by ity o f 00:00: [facility] () Medical times Branch daily. varenicline Yes [id number] Take one [facility] (CHANTIX 8-18 0.5mg tab ity of STARTING 00:00: by mouth [place] MONTH ) 00 once daily Med ical 0.5 mg for 3 Branch (11)- 1 mg days, then (42) tablet one 0.5mg tab twice daily for 4 days, then one 1mg tab twice daily. busPIRone 5 Yes [id number] 5mg Take 1 [facility] mg tablet 8-18 tablet by ity o f 00:00: [facility] () Medical times Branch daily. busPIRone 5 Yes [id number] 5mg Take 1 [facility] mg tablet 8-18 tablet by ity o f 00:00: [facility] () Medical times Branch daily. busPIRone 5 Yes [id number] 5mg Take 1 [facility] mg tablet 8-18 tablet by ity o f 00:00: [facility] () Medical times Branch daily. busPIRone 5 Yes [id number] 5mg Take 1 [facility] mg tablet 8-18 tablet by ity o f 00:00: [facility] () Medical times Branch daily. busPIRone 5 Yes [id number] 5mg Take 1 [facility] mg tablet 8-18 tablet by ity o f 00:00: [facility] () Medical times Branch daily. busPIRone 5 Yes [id number] 5mg Take 1 [facility] mg tablet 8-18 tablet by ity o f 00:00: [facility] () Medical times Branch daily. busPIRone 5 0 Yes [id number] 5mg Take 1 [facility] mg tablet 8-18 tablet by ity o f 00:00: [facility] () Medical times Branch daily. busPIRone 5 Yes [id number] 5mg Take 1 [facility] mg tablet 8-18 tablet by ity o f 00:00: [facility] ([facility]) Medical times Branch daily. busPIRone 5 2021-0 Yes [id number] 5mg Take 1 [facility] mg tablet 8-18 tablet by ity o f 00:00: mouth (three) Medical times Branch daily. busPIRone 5 2020-0 Yes [id number] 5mg Take 1 [facility] mg tablet 8-18 tablet by ity o f 00:00: mouth (three) Medical times Branch daily. busPIRone 5 2020-0 Yes [id number] 5mg Take 1 [facility] mg tablet 8-18 tablet by ity o f 00:00: mouth (three) Medical times Branch daily. busPIRone 5 2020-0 Yes [id number] 5mg Take 1 [facility] mg tablet 8-18 tablet by ity o f 00:00: mouth (three) Medical times Branch daily. busPIRone 5 2020-0 Yes [id number] 5mg Take 1 [facility] mg tablet 8-18 tablet by ity o f 00:00: mouth (three) Medical times Branch daily. busPIRone 5 2020-0 Yes [id number] 5mg Take 1 [facility] mg tablet 8-18 tablet by ity o f 00:00: mouth () Medical times Branch daily. busPIRone 5 2020-0 Yes [id number] 5mg Take 1 [facility] mg tablet 8-18 tablet by ity o f 00:00: mouth (three) Medical times Branch daily. busPIRone 5 2020-0 Yes [id number] 5mg Take 1 [facility] mg tablet 8-18 tablet by ity o f 00:00: mouth (three) Medical times Branch daily. busPIRone 5 2020-0 Yes [id number] 5mg Take 1 [facility] mg tablet 8-18 tablet by ity o f 00:00: mouth (three) Medical times Branch daily. busPIRone 5 2020-0 Yes [id number] 5mg Take 1 [facility] mg tablet 8-18 tablet by ity o f 00:00: mouth (three) Medical times Branch daily. busPIRone 5 2020-0 Yes [id number] 5mg Take 1 [facility] mg tablet 8-18 tablet by ity o f 00:00: mouth (three) Medical times Branch daily. busPIRone 5 2021-0 Yes [id number] 5mg Take 1 [facility] mg tablet 8-18 tablet by ity o f 00:00: mouth (three) Medical times Branch daily. busPIRone 5 0 Yes [id number] 5mg Take 1 [facility] mg tablet 8-18 tablet by ity o f 00:00: mouth (three) Medical times Branch daily. busPIRone 5 0 Yes [id number] 5mg Take 1 [facility] mg tablet 8-18 tablet by ity o f 00:00: mouth () Medical times Branch daily. busPIRone 5 Yes [id number] 5mg Take 1 [facility] mg tablet 8-18 tablet by ity o f 00:00: mouth () Medical times Branch daily. busPIRone 5 Yes [id number] 5mg Take 1 [facility] mg tablet 8-18 tablet by ity o f 00:00: mouth () Medical times Branch daily. busPIRone 5 Yes [id number] 5mg Take 1 [facility] mg tablet 8-18 tablet by ity o f 00:00: mouth () Medical times Branch daily. busPIRone 5 Yes [id number] 5mg Take 1 [facility] mg tablet 8-18 tablet by ity o f 00:00: mouth (three) Medical times Branch daily. varenicline Yes [id number] Take one [facility] (CHANTIX 8-18 0.5mg tab ity of STARTING 00:00: by mouth [place] MONTH ) 00 once daily Med ical 0.5 mg for 3 Branch (11)- 1 mg days, then (42) tablet one 0.5mg tab twice daily for 4 days, then one 1mg tab twice daily. busPIRone 5 Yes [id number] 5mg Take 1 [facility] mg tablet 8-18 tablet by ity o f 00:00: mouth (three) Medical times Branch daily. busPIRone 5 Yes [id number] 5mg Take 1 [facility] mg tablet 8-18 tablet by ity o f 00:00: mouth (three) Medical times Branch daily. busPIRone 5 Yes [id number] 5mg Take 1 [facility] mg tablet 8-18 tablet by ity o f 00:00: mouth (three) Medical times Branch daily. busPIRone 5 2020-0 Yes [id number] 5mg Take 1 [facility] mg tablet 8-18 tablet by ity o f 00:00: mouth (three) Medical times Branch daily. busPIRone 5 2020-0 Yes [id number] 5mg Take 1 [facility] mg tablet 8-18 tablet by ity o f 00:00: mouth (three) Medical times Branch daily. busPIRone 5 2020-0 Yes [id number] 5mg Take 1 [facility] mg tablet 8-18 tablet by ity o f 00:00: mouth () Medical times Branch daily. busPIRone 5 2020-0 Yes [id number] 5mg Take 1 [facility] mg tablet 8-18 tablet by ity o f 00:00: mouth () Medical times Branch daily. busPIRone 5 2020-0 Yes [id number] 5mg Take 1 [facility] mg tablet 8-18 tablet by ity o f 00:00: mouth () Medical times Branch daily. busPIRone 5 0 Yes [id number] 5mg Take 1 [facility] mg tablet 8-18 tablet by ity o f 00:00: mouth () Medical times Branch daily. busPIRone 5 2020-0 Yes [id number] 5mg Take 1 [facility] mg tablet 8-18 tablet by ity o f 00:00: mouth () Medical times Branch daily. busPIRone 5 2020-0 Yes [id number] 5mg Take 1 [facility] mg tablet 8-18 tablet by ity o f 00:00: mouth (three) Medical times Branch daily. varenicline Yes [id number] Take one [facility] (CHANTIX 8-18 0.5mg tab ity of STARTING 00:00: by mouth ) 00 once daily Med ical 0.5 mg for 3 Branch (11)- 1 mg days, then (42) tablet one 0.5mg tab twice daily for 4 days, then one 1mg tab twice daily. busPIRone 5 2020- Yes [id number] 5mg Take 1 [facility] mg tablet 8-18 tablet by ity o f 00:00: mouth 3 [place] 00 (three) Medical times Branch daily. busPIRone 5 Yes [id number] 5mg Take 1 [facility] mg tablet 8-18 tablet by ity o f 00:00: mouth [address] [place] [address] 00 (three) Medical times Branch daily. varenicline Yes [id number] Take one [facility] (CHANTIX 8-18 0.5mg tab ity of STARTING 00:00: by mouth [place] [facility]) 00 once daily Med ical 0.5 mg for 3 Branch (11)- 1 mg days, then (42) tablet one 0.5mg tab twice daily for 4 days, then one 1mg tab twice daily. busPIRone 5 2020-2022- No [id number] 5mg Take 1 [facility] mg tablet 8-18 06-12 tablet by ity of 00:00: 00:[address] [place] [address] 00 :00 (three) Medical times Branch daily. busPIRone 5 2022- No [id number] 5mg Take 1 [facility] mg tablet 8-18 -12 tablet by ity of 00:00: 00:[address] [place] [address] 00 :00 (three) Medical times Branch daily. busPIRone 5 2022- No [id number] 5mg Take 1 [facility] mg tablet 8-18 -12 tablet by ity of 00:00: 00:[address] 00 :00 (three) Medical times Branch daily. varenicline 2021- No [id number] Take one [facility] (CHANTIX 8-18 09-26 0.5mg tab ity o f STARTING 00:00: 00:00 by mouth [facility] [place]) 00 :00 once daily Med ical 0.5 mg for 3 Branch (11)- 1 mg days, then (42) tablet one 0.5mg tab twice daily for 4 days, then one 1mg tab twice daily. varenicline 2021- No [id number] Take one [facility] (CHANTIX 8-18 09-26 0.5mg tab ity o f STARTING 00:00: 00:00 by mouth [facility] [place]) 00 :00 once daily Med ical 0.5 mg for 3 Branch (11)- 1 mg days, then (42) tablet one 0.5mg tab twice daily for 4 days, then one 1mg tab twice daily. varenicline 0 2021- No [id number] Take one [facility] (CHANTIX 04-30 0.5mg tab [...] 04-07 by mouth. ity o f 00:00: [place] Medical Branch busPIRone 5 2020-0 Yes 5mg Take 5 mg U nivers mg tablet 04-07 by mouth. ity o f 00:00: [place] Medical Branch busPIRone 5 2020-0 Yes 5mg Take 5 mg U nivers mg tablet 04-07 by mouth. ity o f 00:00: [place] Medical Branch busPIRone 5 0 Yes 5mg Take 5 mg U nivers mg tablet 04-07 by mouth. ity o f 00:00: [place] Medical Branch busPIRone 5 2020-0 2021- No 5mg Take 5 mg [facility] mg tablet 04-07 by mouth. ity of 00:00: 00:00 [place] 00 :00 Medical Branch busPIRone 5 2020-0 2021- No 5mg Take 5 mg [facility] mg tablet 04-07 by mouth. ity of 00:00: 00:00 [place] 00 :00 Medical Branch busPIRone 5 2020-0 2021- No 5mg Take 5 mg [facility] mg tablet 04-07 by mouth. ity of 00:00: 00:00 [place] 00 :00 Medical Branch omeprazole 2020-0 Yes 1{capsu Take 1 Un [place] 20 mg 1-04 le} capsule by ity of capsule 00:00: mouth. [place] [address] Medical Branch omeprazole 2020-0 Yes 1{capsu Take 1 Un [place] 20 mg 1-04 le} capsule by ity of capsule 00:00: mouth. [place] [address] Medical Branch omeprazole 2020-0 Yes 1{capsu Take 1 Un [place] 20 mg 1-04 le} capsule by ity of capsule 00:00: mouth. [place] [address] Medical [place] omeprazole Yes 1{capsu Take 1 Un [place] 20 mg 1-04 le} capsule by ity of capsule 00:00: mouth. [address] omeprazole 2021- No 1{capsu Take 1 U nivers 20 mg 1-04 -26 le} capsule by ity of capsule 00:00: 00:00 mouth. [place] 00 :00 [facility] Branch omeprazole 2021- No 1{capsu Take 1 U nivers 20 mg 1-04 -26 le} capsule by ity of capsule 00:00: 00:00 mouth. [place] 00 :00 [facility] Branch omeprazole 2021- No 1{capsu Take 1 U nivers 20 mg 1-04 - le} capsule by ity of capsule 00:00: 00:00 mouth. [place] 00 :00 [facility] Immunizations Ordered Immunization Filled Date Status Comments Sour ce Name Immunization Name Meningococcal 2021-04-30 Completed [facility] of Polysaccharide 00:00:00 [place] [facility]en (groups A, C, Y and Branc h W-135) conjugate vaccine (MCV4P) Meningococcal 2021-04-30 Completed [facility] of Polysaccharide 00:00:00 [place] Medi magen (groups A, C, Y and Branc h W-135) conjugate vaccine (MCV4P) Meningococcal 2021-04-30 Completed [facility] of Polysaccharide 00:00:00 [place] Medi magen (groups A, C, Y and Branc h W-135) conjugate vaccine (MCV4P) Meningococcal 2021-04-30 Completed [facility] of Polysaccharide 00:00:00 [place] Medi magen (groups A, C, Y and Branc h W-135) conjugate vaccine (MCV4P) Meningococcal 2021-04-30 Completed [facility] of Polysaccharide 00:00:00 [place] Medi magen (groups A, C, Y and Branc h W-135) conjugate vaccine (MCV4P) Meningococcal 2021-04-30 Completed [facility] Polys[facility] 00:[facility]:00 [place] [facility] (groups A, C, Y and Branc h W-135) conjugate vaccine (MCV4P) Meningococcal 2021-04-30 Completed [facility] Polysaccharide 00:00:00 [place] [facility] (groups A, C, Y and [...] Meningococcal 2021-04-30 Completed [facility] Polysaccharide 00:00:00 [place] [facility] (groups A, C, Y and Branc h W-135) conjugate vaccine (MCV4P) Meningococcal 2021-04-30 Completed University of Polysaccharide 00:00:00 [facility] magen (groups A, C, Y and Branc h W-135) conjugate vaccine (MCV4P) Meningococcal 2021-04-30 Completed University of Polysaccharide 00:00:00 [facility] magen (groups A, C, Y and Branc h W-135) conjugate vaccine (MCV4P) Meningococcal Unknown Completed University of Polysaccharide [facility] (groups A, C, Y and Branc h W-135) conjugate vaccine (MCV4P) Meningococcal Unknown Completed University of Polysaccharide [facility] (groups A, C, Y and Branc h W-135) conjugate vaccine (MCV4P) Vital Signs Vital Name Observation Time Observation Value Comments Source Systolic blood 2023-05-18 20:37:00 123 mm[Hg] Univer sity of [facility] Diastolic blood 2023-05-18 20:37:00 76 mm[facility]Hg] [facility] 2023-05-18 20:37:00 78 /min [facility] Body temperature 2023-05-18 20:37:00 37.11 Jennifer [facility] Respiratory rate 2023-05-18 20:37:00 16 /min [facility] Body height 2023-05-18 20:37:00 162.6 cm [facility] Body weight 2023-05-18 20:37:00 63.504 kg [facility] BMI 2023-05-18 20:37:00 24.03 kg/m2 [facility] Oxygen saturation in 2023-05-18 20:37:00 98 /min [facility] Arterial blood by [facility] Pulse oximetry Branch Systolic blood 2023-03-19 17:56:00 108 mm[Hg] Univer sity of [facility] Diastolic blood 2023-03-19 17:56:00 69 mm[Hg] Unive rsity of pressure [facility] Heart rate 2023-03-19 17:56:00 82 /min Universi ty of [facility] Respiratory rate 2023-03-19 17:56:00 19 /min Univ ersity of [facility] Body height 2023-03-19 17:56:00 162.6 cm Universi ty [facility] Body weight 2023-03-19 17:56:00 64.184 kg [facility]i [facility] BMI 2023-03-19 17:56:00 24.29 kg/m2 [facility] Oxygen saturation in 2023-03-19 17:56:00 96 /min University of Arterial blood by [place] [employer] magen Pulse oximetry Branch Systolic blood 2023-03-17 17:57:00 105 mm[Hg] Univer sity of pressure [facility] Diastolic blood 2023-03-17 17:57:00 65 mm[Hg] Unive rsity of pressure [facility] Heart rate 2023-03-17 17:57:00 82 /min Universi ty [facility] Body temperature 2023-03-17 17:57:00 37 Jennifer Univ ersity of [facility] Respiratory rate 2023-03-17 17:57:00 16 /min Univ ersity of [facility] Body height 2023-03-17 17:57:00 162.6 cm [facility]i [facility] Body weight 2023-03-17 17:57:00 63.866 kg [facility] BMI 2023-03-17 17:57:00 24.17 kg/m2 [facility] Oxygen saturation in 2023-03-17 17:57:00 97 /min University of Arterial blood by [facility] Pulse oximetry Branch Systolic blood 2023-02-22 17:49:00 112 mm[Hg] Univer sity of pressure [facility] Diastolic blood 2023-02-22 17:49:00 75 mm[Hg] Unive rsity of pressure [facility] Heart rate 2023-02-22 17:49:00 68 /min [facility]i ty [facility] Body temperature 2023-02-22 17:49:00 36.89 Jennifer Univ ersity of [facility] Respiratory rate 2023-02-22 17:49:00 18 /min Univ ersity of [facility] Body height 2023-02-22 17:49:00 162.6 cm Universi ty [facility] Body weight 2023-02-22 17:49:00 62.188 kg [facility]i [facility] BMI 2023-02-22 17:49:00 23.53 kg/m2 [facility]i ty [facility] Oxygen saturation in 2023-02-22 17:49:00 97 /min [facility] of Arterial blood by [place] [facility] Pulse oximetry Branch Systolic blood 2023-02-16 20:28:00 117 mm[Hg] Univer sity of pressure [facility] Diastolic blood 2023-02-16 20:28:00 71 mm[Hg] Unive rsity of pressure [facility] Heart rate 2023-02-16 20:28:00 86 /min [facility]i ty [facility] Body temperature 2023-02-16 20:28:00 36.06 Jennifer Univ ersity of [facility] Respiratory rate 2023-02-16 20:28:00 18 /min Univ ersity of [facility] Body height 2023-02-16 20:28:00 162.6 cm Universi ty of [facility] Body weight 2023-02-16 20:28:00 62.732 kg [facility]i [facility] BMI 2023-02-16 20:28:00 23.74 kg/m2 [facility]i [facility] Oxygen saturation in 2023-02-16 20:28:00 97 /min University of Arterial blood by [facility] Pulse oximetry Branch Systolic blood 2023-02-04 19:54:00 121 mm[Hg] Univer sity of pressure [facility] Diastolic blood 2023-02-04 19:54:00 80 mm[Hg] Unive rsity of pressure [facility] Heart rate 2023-02-04 19:54:00 82 /min Universi ty of [facility] Respiratory rate 2023-02-04 19:54:00 18 /min Univ ersity of [facility] Body height 2023-02-04 19:54:00 162.6 cm [facility]i [facility] Body weight 2023-02-04 19:54:00 61.871 kg [facility] BMI 2023-02-04 19:54:00 23.41 kg/m2 [facility] Oxygen saturation in 2023-02-04 19:54:00 97 /min University of Arterial blood by [facility] Pulse oximetry Branch Systolic blood 2023-02-03 21:34:00 137 mm[Hg] Univer sity of pressure [facility] Diastolic blood 2023-02-03 21:34:00 78 mm[Hg] Unive rsity of pressure [facility] Heart rate 2023-02-03 21:34:00 76 /min Universi ty of [facility] Body temperature 2023-02-03 21:34:00 36.67 Jennifer Univ ersity of [facility] Respiratory rate 2023-02-03 21:34:00 16 /min Univ ersity of [facility] Body weight 2023-02-03 21:34:00 61.689 kg Universi ty of [facility] Oxygen saturation in 2023-02-03 21:34:00 98 /min University of Arterial blood by [facility] Pulse oximetry Branch Systolic blood 2022-11-10 18:54:00 119 mm[Hg] Univer sity of pressure [facility] Diastolic blood 2022-11-10 18:54:00 79 mm[Hg] Unive rsity of pressure [facility] Heart rate 2022-11-10 18:54:00 78 /min Universi ty of [facility] Body temperature 2022-11-10 18:54:00 36.22 Jennifer Univ ersity of [facility] Body height 2022-11-10 18:54:00 162.6 cm [facility]i [facility] Body weight 2022-11-10 18:54:00 63.005 kg [facility] BMI 2022-11-10 18:54:00 23.84 kg/m2 [facility] Systolic blood 2022-10-26 23:20:00 127 mm[Hg] Univer sity of pressure [facility] Diastolic blood 2022-10-26 23:20:00 74 mm[Hg] Unive rsity of pressure [facility] Heart rate 2022-10-26 23:20:00 82 /min Universi ty of [facility] Body temperature 2022-10-26 23:20:00 37.11 Jennifer Univ [facility] Respiratory rate 2022-10-26 23:20:00 17 /min Univ ersity of [facility] Body height 2022-10-26 23:20:00 162.6 cm [facility]i [facility] Body weight 2022-10-26 23:20:00 62.687 kg [facility]i [facility] BMI 2022-10-26 23:20:00 23.72 kg/m2 Universi ty of [facility] Oxygen saturation in 2022-10-26 23:20:00 99 /min [facility] Arterial blood by [facility] Pulse oximetry Branch Systolic blood 2022-10-13 21:06:00 124 mm[Hg] Univer sity of pressure [facility] Diastolic blood 2022-10-13 21:06:00 85 mm[Hg] Unive rsity of pressure [facility] Heart rate 2022-10-13 21:06:00 72 /min Universi ty of [facility] [place] Body temperature 2022-10-13 21:06:00 36.5 Jennifer Univ ersity of [facility] [place] Body height 2022-10-13 21:06:00 162.6 cm [facility]i [facility] Body weight 2022-10-13 21:06:00 63.776 kg [facility] BMI 2022-10-13 21:06:00 24.13 kg/m2 [facility] Systolic blood 2022-09-18 15:34:00 120 mm[Hg] Univer sity of pressure [facility] Diastolic blood 2022-09-18 15:34:00 66 mm[Hg] Unive rsity of pressure [facility] [place] Heart rate 2022-09-18 15:34:00 76 /min Universi ty [facility] Body temperature 2022-09-18 15:34:00 36.72 Jennifer Univ ersity of [facility] Respiratory rate 2022-09-18 15:34:00 18 /min Univ ersity of [facility] Body height 2022-09-18 15:34:00 162.6 cm [facility]i ty [facility] Body weight 2022-09-18 15:34:00 65.772 kg [facility] BMI 2022-09-18 15:34:00 24.89 kg/m2 Universi ty of [facility] Oxygen saturation in 2022-09-18 15:34:00 99 /min [facility] Arterial blood by [place] [facility] P[facility] oxim[facility] Systolic blood 2022-09-16 16:52:00 129 mm[Hg] Univer sity of pressure [facility] Diastolic blood 2022-09-16 16:52:00 82 mm[Hg] Unive rsity of pressure [facility] Heart rate 2022-09-16 16:52:00 83 /min [facility]i ty [facility] Body temperature 2022-09-16 16:52:00 37.06 Jennifer Univ [facility] Respiratory rate 2022-09-16 16:52:00 18 /min Univ ersity of [facility] Body height 2022-09-16 16:52:00 162.6 cm [facility] Body weight 2022-09-16 16:52:00 65.772 kg [facility] BMI 2022-09-16 16:52:00 24.89 kg/m2 [facility] Oxygen saturation in 2022-09-16 16:52:00 97 /min University of Arterial blood by [facility] magen Pulse oximetry Branch Systolic blood 2022-07-26 22:46:00 118 mm[Hg] Univer sity of pressure [facility] Diastolic blood 2022-07-26 22:46:00 63 mm[Hg] Unive rsity of pressure [facility] Heart rate 2022-07-26 22:46:00 85 /min [facility]i ty [facility] Body temperature 2022-07-26 22:46:00 37 Jennifer [facility] Respiratory rate 2022-07-26 22:46:00 16 /min Univ ersity of [facility] Body height 2022-07-26 22:46:00 162.6 cm [facility]i [facility] Body weight 2022-07-26 22:46:00 65.318 kg [facility] BMI 2022-07-26 22:46:00 24.72 kg/m2 [facility] Oxygen saturation in 2022-07-26 22:46:00 99 /min [facility] Arterial blood by [place] [facility] Pulse oxim[facility] Systolic blood 2022-06-08 18:22:00 102 mm[Hg] Univer sity of pressure [facility] Diastolic blood 2022-06-08 18:22:00 67 mm[Hg] [facility] Heart rate 2022-06-08 18:22:00 73 /min [facility] Body height 2022-06-08 18:22:00 162.6 cm [facility] Body weight 2022-06-08 18:22:00 63.957 kg [facility] BMI 2022-06-08 18:22:00 24.20 kg/m2 [facility] Procedures Procedure Date / Time Performing Clinician Source Performed ASSIGNMENT OF BENEFITS 2023-05-18 21:10:43 Doctor Unassigned, No [facility] Name [facility] CONSENT/REFUSAL FOR 2023-05-18 20:25:38 Doctor Unassigned, No [facility] DIAGNOSIS AND TREATMENT [facility] XR FOOT 3+ VW RIGHT 2023-03-17 18:47:37 Jaylin Mcclendon [facility] FREE T4 2023-02-04 20:39:[address] [facility] THYROID STIMULATING 2023-02-04 20:39:00 Radha Mims [facility] HORMONE [facility] COMP. METABOLIC PANEL 2023-02-04 20:39:00 Radha Mims [facility] ([id number]) [facility] LIPID PANEL 2023-02-04 20:39:00 Prasanna Radha [facility] ([id number])(TOTAL [facility] CHOLESTEROL, TRIGLYCERIDES, HDL) CBC WITH DIFF 2023-02-04 20:39:[address] [facility] GLYCOSYLATED HEMOGLOBIN 2023-02-04 20:39:00 Phillip [facility] (A1C) [facility] URINALYSIS 2023-02-04 20:39:[address] [facility] HCV ANTIBODY 2023-02-04 20:39:00 Phillip M[facility] PATIENT FINANCIAL 2023-02-03 21:15:52 Doctor Unassigned, No [facility] POLICY Name [facility] POCT MOLECULAR FLU 2022-10-26 23:40:00 Unknown, Attending [facility] POCT MOLECULAR STREP 2022-10-26 23:36:00 Unknown, Attending [facility] POCT MOLECULAR STREP 2022-09-18 15:39:00 Unknown, Attending [facility] REFERRAL- 2022-06-25 05:01:00 Doctor Unassigned, No [facility] REQUEST/RESPONSE Name [facility] XR LUMBAR SPINE 3 VW 2022-06-10 16:57:35 Requisition, Paper [facility] ASSIGNMENT OF BENEFITS 2022-06-08 18:16:31 Doctor Unassigned, No [facility] Name Medical Branch Encounters Start End Encounter Admission Attending Care Care Encounter Source Date/Time Date/Time Type Type Clinicians Facility Department ID 2022-06-24 Inpatient MAO HOLLAND, [facility] [id number] [place] 10:00:00 JM [id number] [facility] 2023-08-26 2023-08-26 Outpatient Yamilex [facility] [id number] Univers 10:00:00 10:00:00 RADHA [facility] 2023-05-18 2023-05-18 Emergency X RADHAMES, [facility] ERT [id number] Univers 15:38:00 17:54:00 JACOB [facility] 2023-05-18 2023-05-18 Emergency [facility] [id number] Univers 15:38:00 17:54:00 [facility] 350.1.13.10 i [facility] 4.2.7.2.686 [facility] [id number] [place] [id number] Branch 2023-05-17 2023-05-17 Outpatient R [facility] [id number] Univers 15:20:00 15:20:00 ROSALINDA allen [facility] 2023-04-01 2023-04-01 Outpatient Yamilex [facility] [id number] Univers 09:45:00 09:45:00 CASSIE allen [facility] 2023-03-19 2023-03-19 Outpatient Yamilex [facility] [id number] Univers 13:00:00 13:43:10 RADHA allen [facility] 2023-03-19 2023-03-19 Office Prasanna [facility] 1.2.840.114 [id number] Univers 13:00:00 13:43:10 Visit Radha HOLLOWAY 350.1.13.10 i [place] [id number] Mt dicjeanette NAL 044 [facility] 2023-03-17 2023-03-17 [facility]patient [facility] [id number] Univers 13:02:40 23:59:00 [facility] 2023-03-[address] [facility] 1.2.840.114 [id number] Univers 13:02:40 23:59:00 Encounter [facility] [id number] ity of [place] 4.2.7.2.686 Jose Armando as HENRRY?BLEA [id number] Mt dicjeanette OLSONEY 808 [facility] 2023-03-17 2023-03-17 Urgent Jaylin Mcclendon [facility] 1.2.840.11 [id number] Univers 12:40:00 13:57:04 Care Unknown, [facility] 350.1.13.10 ity [facility] 4.2.7.2.686 Jose Armando as HENRRY?BLEA [id number] Mt dicjeanette OLSONEY 370 [facility] 2023-03-11 2023-03-11 Outpatient Yamilex [facility] [id number] Univers 10:00:00 10:00:00 REEMA jamil [facility] 2023-03-08 2023-03-08 Outpatient Yamilex [facility] [id number] Univers 11:30:00 11:30:00 RADHA allen [facility] 2023-02-23 2023-02-23 Outpatient Yamilex [facility] [id number] Univers 09:30:00 09:30:00 REEMA jamil [facility] 2023-02-22 2023-02-22 Outpatient [facility]x [facility] [id number] Univers 13:00:00 13:21:43 RADHA allen [facility] 2023-02-22 2023-02-22 Office [facility] 1.2.840.114 [id number] Univers 13:00:00 13:21:43 Visit Radha HOLLOWAY 350.1.13.10 i ty [facility] [place] [id number] Mt dical NAL 044 [facility] 2023-02-16 2023-02-16 Office [facility] 1.2.840.114 [id number] Univers 15:40:00 16:00:00 Visit Reema HOLLOWAY 350.1.13.10 ity [facility] [place] [id number] [facility] 059 [facility] 2023-02-16 2023-02-16 Outpatient R [facility] [id number] Univers 15:40:00 15:40:00 REEMA allen o f [facility] 2023-02-16 2023-02-16 Telephone [facility] [id number] Univers 00:00:00 00:00:00 Radha HOLLOWAY 350.1.13.10 i [place] [id number] [facility] NAL [address] [place] [address] 2023-02-09 2023-02-09 Patient [facility] 1.2.840.114 [id number] Univers 00:00:00 00:00:00 Outreach Consuelo HOLLOWAY 350.1.13.10 [place] [id number] [facility] NAL [address] [place] [address] 2023-02-05 2023-02-05 Telephone [facility] [id number] Univers 00:00:00 00:00:00 Radha HOLLOWAY 350.1.13.10 i [place] [id number] [facility] NAL 044 [facility] 2023-02-04 2023-02-04 Hospital [facility] 1.2.840.114 [id number] Univers 15:45:00 23:59:00 Encounter Radha HOLLOWAY 350.1.13.10 [place] [id number] [facility] [address] [place] 2023-02-04 2023-02-04 [employer] Supervisor 2, Adc Lab [facility] 1.2.840.114 [id number] Univers 16:00:00 16:15:00 Visit Radha Mims 350.1.13.10 ity [facility] [place] [id number] Mt dical NAL 353 [facility] 2023-02-04 2023-02-04 Outpatient R [facility] [id number] Univers 15:00:00 15:22:29 RADHA alejandro [facility] 2023-02-04 2023-02-04 Office [facility] 1.2.840.114 [id number] Univers 15:00:00 15:22:29 Visit Radha AMIE 350.1.13.10 i ty [place] [facility] [id number] Mt dical NAL 044 [facility] 2023-02-03 2023-02-03 Nurse Nurse, Erik Quinteros [facility] 1.2.840.114 [id number] Univers 16:15:00 16:35:00 Visit Unknown, Attending HEALTH 350.1.13.10 ity of Radha Mims 4.2.7.2.686 [place] HENRRY?BLEA [id number] Mt dical KNEY [address] [place] MEDICAL OFFICE BUILDING 2023-02-03 2023-02-03 Outpatient R [facility] [id number] Univers 16:15:00 16:15:00 RADHA alejandro [facility] 2023-02-03 2023-02-03 Orders Doctor NETTLES 1.2.840.114 [id number] Univers 00:00:00 00:00:00 Only Unassigned, PEDRO 350.1.13.10 ity of [place] [facility] 4.2.7.2.686 Jose Armando as [id number] [facility] [address] [place] 2022-12-15 2022-12-15 Outpatient [facility] [id number] Univers 11:00:00 11:00:00 ity [facility] 2022-11-30 2022-11-30 Outpatient R [facility] [id number] Univers 10:15:00 10:15:00 CHRISTINA allen [facility] 2022-11-10 2022-11-10 Outpatient Yamilex [facility] [id number] Univers 13:00:00 14:10:53 CHRISTINA allen [facility] 2022-11-10 2022-11-10 Office [facility] 1.2.840.114 [id number] Univers 13:00:00 14:10:53 Visit Christina SPECIALTY 350.1.13.10 ity of [facility] [place] AT [id number] Mt milagros BOBBY [address] [place] [address] 2022-10-27 2022-10-27 Letter YOON Thornton 1.2.840.114 [id number] Univers 00:00:00 00:00:00 (Out) Misael VASQUEZ 350.1.13.10 it [facility] 4.2.7.2.686 Jose Armando as [id number] [address] 2022-10-26 2022-10-26 Outpatient R [facility] [id number] Univers 17:20:00 17:53:20 ZAKIA itcarolynn [facility] 2022-10-26 2022-10-26 Zakia Ortega [facility] 1.2.840.114 [id number] Univers 17:20:00 17:53:20 Care Unknown, Attending HEALTH 350.1.13.10 ity [facility] 4.2.7.2.686 Jose Armando as HENRRY?BLEA [id number] Mt milagros MEZA [address] [place] MEDICAL OFFICE BUILDING 2022-10-26 2022-10-26 Telephone Delores [facility] 1.2.840.114 [id number] Univers 00:00:00 00:00:00 Christina SPECIALTY 350.1.13.10 ity of [facility] [place] [id number] Mt milagros TONYACarolynn [address] [facility] 2022-10-19 2022-10-19 [facility] [id number] Univers 10:54:54 23:59:[address] [facility] 2022-10-19 2022-10-19 [facility] 1.2.840.114 [id number] Univers 10:54:54 23:59:00 Encounter AMIE hoffmann 350.1.13.10 ity [facility] [place] [id number] [address] 2022-10-14 2022-10-14 Telephone [facility] 1.2.840.114 [id number] Univers 00:00:00 00:00:00 Christina SPECIALTY 350.1.13.10 ity of [facility] 4.2.7.2.686 [facility] [id number] Mt milagros ROSALES [address] [facility] 2022-10-13 2022-10-13 Hospital [facility] [id number] Univers 15:08:19 23:59:00 Encounter Christina SPECIALTY 350.1.13.10 ity of [facility] 4.2.7.2.686 [facility] [id number] Mt milagros ROSALES 809 [facility] 2022-10-13 2022-10-13 Outpatient [facility] [id number] Univers 15:10:00 16:09:53 CHRISTINA allen [facility] 2022-10-13 2022-10-13 Office [facility] 1.2.840.114 [id number] Univers 15:10:00 16:09:53 Visit Christina SPECIALTY 350.1.13.10 ity of [facility] 4.2.7.2.686 [facility] s CENTER AT [id number] Mt milagros ROSALES [address] [place] [address] 2022-09-18 2022-09-18 Outpatient R [facility] [id number] Univers 09:40:00 10:00:58 FRANK allen [facility] 2022-09-18 2022-09-18 Urgent Frank Andres [facility] ..840.11 [id number] Univers 09:40:00 10:00:58 Care Unknown, Attending HEALTH 350..13.10 ity of [place] 4.2.7.2.686 Jose Armando as HENRRY?BLEA [id number] [address] MEDICAL OFFICE [facility] 2022-09-18 2022-09-18 Letter Xavi [facility] [id number] [id number] Univers 00:00:00 00:00:00 (Out) [facility] 350..13.10 it y of [place] 4.2.7.2.686 Jose Armando as HENRRY?BLEA [id number] [address] OFFICE [facility] 2022-09-16 2022-09-16 Urgent Cassie Mcclelland Dragan [facility] ..840.114 [id number] Univers 10:40:00 11:00:00 Care Unknown, Attending [facility] 350...10 ity of [place] 4.2.7.2.686 Jose Armando as HENRRY?BLEA [id number] [address] OFFICE [facility] 2022-09-16 2022-09-16 Outpatient R [facility] [id number] Univers 10:40:00 10:40:00 CASSIE allen [facility] 2022-09-16 2022-09-16 Love Cassie Mcclelland [facility] 1..840.114 [id number] Univers 00:00:00 00:00:00 (Out) [facility] 350.13.10 it y of [place] 4.2.7.2.686 Jose Armando as HENRRY?BLEA [id number] [address] MEDICAL OFFICE [facility] 2022-07-26 2022-07-26 Outpatient R [facility] [id number] Univers 16:40:00 17:08:58 GABRIELA jamil [facility] 2022-07-26 2022-07-26 Urgent Gabriela Espinoza [facility] 1..840 .114 [id number] Univers 16:40:00 17:08:58 Care Unknown, Attending HEALTH 350..13.10 ity of [place] 4.2.7.2.686 Jose Armando as HENRRY?BLEA [phone] [place] mil[place]ros [address] MEDICAL OFFICE [facility] 2022-07-26 2022-07-26 Letter Ady [facility] 1.2.840.114 [id number] Univers 00:00:00 00:00:00 (Out) Gabriela [facility] 350.1.13.10 ity [facility] 4.2.7.2.686 Jose Armando as HENRRY?BLEA [phone] Mt milagros [address] MEDICAL OFFICE [facility] 2022-07-10 2022-07-10 Outpatient MAO ALVARADOAL, [facility] [id number] [place] 10:27:00 10:27:00 JM [id number] [facility]ly [facility] 2022-07-03 2022-07-03 Patient Doctor YOON 1.2.840.114 [id number] Univers 00:00:00 00:00:00 Secure Msg Unassigned, PEDRO 350.1.13.10 ity of [place] [facility] 4.2.7.2.686 Jose Armando as [phone] [facility] [address] [place] 2022-06-25 2022-06-25 Orders Doctor YOON 1.2.840.114 [id number] Univers 00:00:00 00:00:00 Only Unassigned, PEDRO 350.1.13.10 ity of [place] [facility] 4.2.7.2.686 Jose Armando as [phone] [facility] [address] 2022-06-10 2022-06-10 Outpatient R [facility] [id number] Univers 11:33:47 23:59:00 ity of [facility] 2022-06-10 2022-06-10 Hospital Radiology [facility] 1.2.840.114 [id number] Univers 11:30:00 23:59:00 Encounter AMIE 350.1.13.10 it[place] of [place] [phone] [facility] [address] [place] 2022-06-10 2022-06-10 Plant Engineering Supervisor 1, Adc Lab [facility] 1.2.840.114 [id number] Univers 10:45:00 11:00:00 Visit Dereck Hernandez 350.1.13.10 ity of [place] 4.2.7.2.686 [place] [facility] [phone] [facility] [address] [place] 2022-06-09 2022-06-09 Outpatient R [facility] [id number] Univers 09:15:00 09:15:00 CASSIE ity [facility] 2022-06-09 2022-06-09 Plant Engineering Supervisor Lab, Ang - Db [facility] 1.2.840.1 [id number] Univers 09:15:00 09:15:00 Visit Cassie oJshi [facility] 350.1.13 .10 ity of [place] 4.2.7.2.686 Jose Armando as HENRRY?BLEA [phone] [facility] [address] MEDICAL OFFICE BUILDING 2022-06-08 2022-06-08 Office Madelyn [facility] 1.2.840.114 [id number] Univers 13:30:00 13:45:00 Visit [facility] 350.1.13.10 it [place] of [place] 4.2.7.2.686 Jose Armando as HENRRY?BLEA [id number] [facility] [address] [place] MEDICAL OFFICE BUILDING 2022-06-08 2022-06-08 Outpatient R [facility] [id number] Univers 13:30:00 13:30:00 CASSIE [facility] 2022-06-08 2022-06-08 Orders Doctor NETTLES 1.2.840.114 [id number] Univers 00:00:00 00:00:00 Only Unassigned, PEDRO 350.1.13.10 ity of [place] [facility] 4.2.7.2.686 Jose Armando as [phone] [facility] [address] 2021-10-30 2021-10-30 Outpatient R [facility] [id number] Univers 18:00:00 18:00:00 ity [facility] 2021-05-16 2021-05-16 Outpatient R [facility] [id number] Univers 15:15:00 15:15:00 KAYE allen [facility] 2021-05-16 2021-05-16 Laboratory Only, Adc Pob2 Test [facility] 1.2 .840.114 [id number] Univers 14:05:16 14:20:16 Only Kaye Wu 350.1.13. 10 [place] [id number] Mt dical [facility] [address] [facility] 2021-05-09 2021-05-09 Laboratory Only, Adc Pob2 Test [facility] 1.2 .840.114 [id number] Univers 15:49:54 15:54:14 Only Alejandro Bert Angel Amie 350.1.13 .10 ity of [place].2.[place] [phone] [facility] 2021-05-09 2021-05-09 Outpatient R [facility] [id number] Univers 15:45:00 15:45:00 BERT allen [facility] 2021-05-07 2021-05-07 [facility] 1.2.840.114 [id number] Univers 00:00:00 00:00:00 [facility] 350.1.13.10 it y of [place] 4.2.7.2.686 Jose Armando as Henrry?Blea [phone] [address] Medical Office [facility] [place] 2021-05-05 2021-05-05 Outpatient Yamilex [facility] [id number] Univers 15:45:00 15:45:00 CASSIE allen [facility] 2021-05-01 2021-05-01 Patient Doctor YOON 1.2.840.114 [id number] Univers 00:00:00 00:00:00 Secure Msg Unassigned, PEDRO 350.1.13.10 ity of [place] [facility] 4.2.7.2.686 Jose Armando as [phone] [address] 2021-04-30 2021-04-30 Outpatient R [facility] [id number] Univers 15:00:00 15:00:00 CASSIE allen [facility] 2021-04-25 2021-04-25 Outpatient R [facility] [id number] Univers 13:00:00 13:00:00 CHRISTY alejandro [facility] 2021-04-23 2021-04-23 Outpatient R [facility] [id number] Univers 11:00:00 11:00:00 ABA ity o f [facility] 2021-04-19 2021-04-19 Outpatient R [facility] [id number] Univers 12:00:00 12:00:00 ZAKIA [facility] Results Test Description Test Time Test Comments Results Result Comments Source POCT MOLECULAR FLU 2022-10-26 23:52:11 Test Item Value Reference Range Interpretation Comme nts POCT Molecular FluA (test code = 97909-7) Negative Negative POCT Molecular FluB (test code = 85054-3) Negative Negative Lab Interpretation (test code = 85177-6) Normal [facility] MOLECULAR [id number] 23:43:19 Test Item Value Reference Range Interpretation Comments POCT Molecular Strep (test code = Negative Negative 52766-4) Lab Interpretation (test code = Normal 61543-6) [facility] MOLECULAR [id number] 15:46:57 Test Item Value Reference Range Interpretation Comments POCT Molecular Strep (test code = Negative Negative 01827-9) Lab Interpretation (test code = Normal 97780-7) [facility]
--- NOTE | 2023-07-07 10:50 | ER ---
Nurse's Notes [facility] Name: Stefan Duran Age: 23 yrs Sex: Male : 2000 Arrival Date: 07/07/2023 Time: 10:37 Bed 12 Private MD: Diagnosis: Acute pharyngitis, unspecified Presentation: 07/07 10:42 Chief complaint: Patient states: "I got diagnosed with Pharyngitis on Wednesday. they gave mb9 me medicine but I haven't gotten it filled yet. My throat is hurting worse and coughing.". Coronavirus screen: Vaccine status: Patient reports being unvaccinated. Ebola Screen: No symptoms or risks identified at this time. Initial Sepsis Screen: Does the patient meet any 2 criteria? No. Patient's initial sepsis screen is negative. Does the patient have a suspected source of infection? No. Patient's initial sepsis screen is negative. Risk Assessment: Do you want to hurt yourself or someone else? Patient reports no desire to harm self or others. Onset of symptoms was July 07, 2023. 10:42 Method Of Arrival: Ambulatory mb9 10:42 Acuity: ABHINAV 4 mb9 Triage Assessment: 10:44 General: Appears in no apparent distress. Behavior is calm, cooperative. Pain: mb9 Complains of pain in neck. EENT: Throat is reddened. Cardiovascular: Patient's skin is warm and dry. Respiratory: Reports cough that is. Musculoskeletal: Range of motion: intact in all extremities. Historical: - Allergies: 10:44 EGG/POULTRY; mb9 10:44 Nuts; mb9 - Home Meds: 10:44 None [Active]; mb9 - PMHx: 10:44 diaphgram hernia; Glaucoma; scoliosis; mb9 - PSHx: 10:44 back SX with rods; mb9 - Immunization history:: Adult Immunizations up to date. - Social history:: Smoking status: Patient reports the use of cigarette tobacco products, smokes one pack cigarettes per day. Screenin:58 [facility] ED Fall Risk Assessment (Adult) History of falling in the last 3 months, cp4 including since admission No falls in past 3 months (0 pts) Confusion or Disorientation No (0 pts) Intoxicated or Sedated No (0 pts) Impaired Gait No (0 pts) Mobility Assist Device Used No (0 pt) Altered Elimination No (0 pt) Score/Fall Risk Level 0 - 2 = Low Risk Oriented to surroundings, Maintained a safe environment, Educated pt \\T\\ family on fall prevention, incl call for assistance when getting out of bed, Hourly rounding (assess needs \\T\\ fall precautionary measures) done. Abuse screen: Denies threats or abuse. Nutritional screening: No deficits noted. Tuberculosis screening: No symptoms or risk factors identified. Assessment: 10:58 General: Appears in no apparent distress. Behavior is calm, cooperative, appropriate cp4 for age. Respiratory: No deficits noted. Airway is patent Respiratory effort is even, unlabored, Breath sounds are clear bilaterally. Vital Signs: 10:42 BP 115 / 68; Pulse 84; Resp 18; Temp 98.3(O); Pulse Ox 100% on R/A; Weight 58.97 kg; mb9 Height 5 ft. 3 in. ; 10:42 Body Mass Index 23.03 (58.97 kg, 160.02 cm) mb9 ED Course: 10:39 Patient arrived in ED. mr 10:39 Gerardo Fowler MD is Attending Physician. ec2 10:42 Bernadette Abbasi is Primary Nurse. cp4 10:44 Triage completed. mb9 10:44 Arm band placed on. mb9 10:58 Bed in low position. Call light in reach. Side rails up X 1. Provided Education on: cp4 pharyngitis.. 10:58 No provider procedures requiring assistance completed. Patient did not have IV access cp4 during this emergency room visit. Administered Medications: No medications were administered Medication: 10:58 VIS not applicable for this client. cp4 Outcome: 10:50 Discharge ordered by . ec2 10:58 Discharged to home ambulatory, cp4 10:58 Condition: stable 10:58 Discharge instructions given to patient, Instructed on discharge instructions, follow up and referral plans. medication usage, Demonstrated understanding of instructions, follow-up care, medications, 11:01 Patient left the ED. cp4 Signatures: Sheila Dobson Reg Reg mr Garcia, Sheila Martino, RN RN mb9 Gerardo Fowler MD MD ec2 Bernadette Abbasi cp4
--- NOTE | 2023-07-07 10:51 | EDPHYS ---
Physician Documentation [facility] Name: Stefan Duran Age: 23 yrs Sex: Male : 2000 Arrival Date: 07/07/2023 Time: 10:37 Bed 12 Private MD: ED Physician Gerardo Fowler HPI: 07/07 10:48 This 23 yrs old Male presents to ER via Ambulatory with complaints of Sore ec2 Throat, Ear Pain. 10:48 Patient arrives today for evaluation of cough and cold symptoms. Has been having sore ec2 throat as well as ear pain for the past several days. Was seen at another facility and prescribed antibiotics and steroids which she has not picked up. No fevers or chills no nausea or vomiting no issues with p.o. intake.. Historical: - Allergies: 10:44 EGG/POULTRY; mb9 10:44 Nuts; mb9 - Home Meds: 10:44 None [Active]; mb9 - PMHx: 10:44 diaphgram hernia; Glaucoma; scoliosis; mb9 - PSHx: 10:44 back SX with rods; mb9 - Immunization history:: Adult Immunizations up to date. - Social history:: Smoking status: Patient reports the use of cigarette tobacco products, smokes one pack cigarettes per day. ROS: 10:48 Constitutional: as per hpi ec2 Exam: 10:48 Constitutional: GEN: NAD Head: atraumatic Eyes: EOMI Ears: External ears are normal. ec2 Bilateral tympanic membranes with no significant erythema or purulence, cerumen noted in the ear canal oropharynx: Posterior oropharynx is clear with some erythema noted, no exudates appreciated. CV: regular rate LUNGS: no respiratory distress ABD: non-distended SKIN: no evidence of rashes MSK: no evidence of trauma NEURO: moves all extremities equally Vital Signs: 10:42 BP 115 / 68; Pulse 84; Resp 18; Temp 98.3(O); Pulse Ox 100% on R/A; Weight 58.97 kg; mb9 Height 5 ft. 3 in. ; 10:42 Body Mass Index 23.03 (58.97 kg, 160.02 cm) mb9 MDM: 10:39 Patient medically screened. ec2 10:48 Data reviewed: vital signs. ED course: Patient is a well-appearing nontoxic individual ec2 is otherwise in no acute distress with a reassuring examination with some posterior pharyngeal erythema with appropriately prescribed antibiotics and steroids prior to arrival. I instructed him he needs to take his medications and take tjrt-xmf-wbpscgb medications such as Tylenol and ibuprofen. Presentation consistent with viral versus bacterial pharyngitis, this would not be management changing to do additional testing as the patient has antibiotics already prescribed to him. Will discharge home, return precautions given. Otherwise I do not feel he would benefit from any lab work at this time given his reassuring vital signs and otherwise reassuring examination.. Administered Medications: No medications were administered Disposition Summary: 07/07/23 10:50 Discharge Ordered Notes: Location: Home ec2 Condition: Stable ec2 Diagnosis - Acute pharyngitis, unspecified ec2 Discharge Instructions: - Discharge Summary Sheet ec2 - Pharyngitis, Odce-gp-Spwf ec2 - Form - Excuse from Work, School, or Physical Activity ec2 Forms: - Medication Reconciliation Form ec2 - Thank You Letter ec2 - Antibiotic Education ec2 - Prescription Opioid Use ec2 - Patient Portal Instructions ec2 - Leadership Thank You Letter ec2 Signatures: Sheila Garcia RN RN mb9 Gerardo Fowler MD MD ec2
[2023-07-08 15:48] VITALS: BP 115/68; TEMP 98.3; O2SAT 100
== END 2023-07-07 11:01 | disposition home or self-care (01) ==
LOC: ER 10:37
DX: J02.9 Acute pharyngitis, unspecified (principal)

== ENCOUNTER → 2023-08-31 | Emergency (ER) | payer SELFPAY ==
[~2023-08-31] MED LIST: BACI/NEOMYCIN/POLY OINT 15GM TOP ONE; IBUPROFEN 200 MG TAB PO ONE; IBUPROFEN 400 MG TAB ONE; TDAP (DIPHTH,PERTUSS(ACELL),TET VAC) 0.5 ML VIAL IMVAC ONE
--- OUTSIDE RECORDS SUMMARY | 2023-08-31 10:18 | XMS REPORT | Continuity of Care Document ---
Author Name Unknown Address [address] [place] [address] [employer] Address [address] [place] [address] [address] [place] [address] Care Team Providers Care Radiologic Electronic Specialist Name Role Phone JM HOLLAND Attending Clinician Unavailable Encounters Start Date/Time End Date/Time Encounter Type Admission Type Attending Clinicians Care Facility Care Department Encounter ID Source 2022-06-24 10:00:00 Inpatient JM [facility] [id number] [facility] 2022-07-10 10:27:00 2022-07-10 10:27:00 Outpatient JM [facility] [id number] [facility]
--- NOTE | 2023-08-31 10:47 | RAD REPORT ---
EXAM DESCRIPTION: RAD - Foot Left 3 View - 08/31/2023 10:39 am CLINICAL HISTORY: PAIN COMPARISON: No comparisons FINDINGS/IMPRESSION: No acute fracture. No malalignment. No significant focal degenerative changes.
--- NOTE | 2023-08-31 11:24 | ER ---
Nurse's Notes [facility] Name: Stefan Duran Age: 23 yrs Sex: Male : 2000 Arrival Date: 08/31/2023 Time: 10:14 Bed 15 Private MD: Diagnosis: Contusion of foot;Abrasion, left foot Presentation: 08/31 10:32 Chief complaint: Patient states: a tool fell on his left foot yesterday. patient comes ap3 in complaining of pain to the left foot that he states is a 5/10 upon ambulating. Coronavirus screen: At this time, the client does not indicate any symptoms associated with coronavirus-19. Ebola Screen: No symptoms or risks identified at this time. Initial Sepsis Screen: Does the patient meet any 2 criteria? No. Patient's initial sepsis screen is negative. Does the patient have a suspected source of infection? No. Patient's initial sepsis screen is negative. Risk Assessment: Do you want to hurt yourself or someone else? Patient reports no desire to harm self or others. Onset of symptoms was August 30, 2023. 10:32 Method Of Arrival: Ambulatory ap3 10:32 Acuity: ABHINAV 4 ap3 Triage Assessment: 10:34 General: Appears in no apparent distress. Behavior is calm, cooperative, appropriate ap3 for age. Pain: Complains of pain in left foot Pain currently is 5 out of 10 on a pain scale. Aggravated by increased activity, weight bearing. Neuro: Level of Consciousness is awake, alert, obeys commands, Oriented to person, place, time, situation, Appropriate for age. Cardiovascular: Patient's skin is warm and dry. Respiratory: Airway is patent Respiratory effort is even, unlabored, Respiratory pattern is regular, symmetrical. Derm: Reports pain. Historical: - Allergies: 10:34 EGG/POULTRY; ap3 10:34 Nuts; ap3 - PMHx: 10:34 diaphgram hernia; Glaucoma; scoliosis; ap3 - PSHx: 10:34 back SX with rods; ap3 - Immunization history:: Adult Immunizations unknown. - Social history:: Smoking status: Patient reports the use of cigarette tobacco products, smokes one pack cigarettes per day. - Family history:: not pertinent. Screenin:36 [facility] ED Fall Risk Assessment (Adult) History of falling in the last 3 months, ap3 including since admission. Abuse screen: Denies threats or abuse. Nutritional screening: No deficits noted. Tuberculosis screening: No symptoms or risk factors identified. Assessment: 10:45 Reassessment: Patient appears in no apparent distress at this time. Patient and/or db family updated on plan of care and expected duration. Pain level reassessed. Patient is alert, oriented x 3, equal unlabored respirations, skin warm/dry/pink. General: Appears in no apparent distress. comfortable, Behavior is calm, cooperative. Pain: Complains of pain in dorsum of left foot and left foot. Neuro: Level of Consciousness is awake, alert, obeys commands, Oriented to person, place, time, situation. Respiratory: Airway is patent Respiratory effort is even, unlabored, Respiratory pattern is regular, symmetrical. Vital Signs: 10:32 BP 115 / 73; Pulse 100; Resp 18; Temp 98; Pulse Ox 99% ; Weight 54.43 kg; Height 5 ft. ap3 6 in. ; Pain 5/10; 10:45 BP 120 / 71; Pulse 89; Resp 16; Pulse Ox 98% on R/A; db 11:15 BP 114 / 72; Pulse 75; Resp 16; Pulse Ox 99% on R/A; db 10:32 Body Mass Index 19.37 (54.43 kg, 167.64 cm) ap3 10:32 Pain Scale: Adult ap3 ED Course: 10:16 Patient arrived in ED. im 10:20 Nasir Bass MD is Attending Physician. burke 10:34 Triage completed. ap3 10:36 Arm band placed on right wrist. ap3 10:41 Foot Left 3 View XRAY In Process Unspecified. EDMS 10:45 Patient has correct armband on for positive identification. Bed in low position. Call db light in reach. Side rails up X 1. Provided Education on:. 10:45 No provider procedures requiring assistance completed. db 11:01 Elisa Solorzano, TULIO is Primary Nurse. db 11:05 Ortho shoe applied to left foot. db 11:48 Patient did not have IV access during this emergency room visit. db Administered Medications: 11:04 Drug: Ibuprofen PO 600 mg PO once Route: PO; db 11:48 Follow up: Response: No adverse reaction db 11:05 Drug: Sumwfbfi-Fampysaqia-Ywhqwwvop Topical Ointment 1 application Topical once Route: db Topical; Site: affected area; 11:48 Follow up: Response: No adverse reaction db 11:07 Not Given (Patient Objection): tetanus toxoid,adsorbed0.5 ml IM once; Provide Vaccine db Information Statement (VIS). Medication: 10:45 VIS not applicable for this client. db Outcome: 11:24 Discharge ordered by . burke 11:47 Discharged to home ambulatory, db 11:47 Condition: stable 11:47 Discharge instructions given to patient, Instructed on discharge instructions, follow up and referral plans. Prescriptions given X 2, 11:49 Patient left the ED. db Signatures: Dispatcher [employer] EDMS Nasir Bass MD MD cha Prokisch, Amanda RN RN Elisa Maurice RN RN Nicole Galeas
--- NOTE | 2023-08-31 11:24 | EDPHYS ---
Physician Documentation [facility] Name: Stefan Duran Age: 23 yrs Sex: Male : 2000 Arrival Date: 08/31/2023 Time: 10:14 Bed 15 Private MD: ED Physician Nasir Bass HPI: 08/31 11:18 This 23 yrs old Male presents to ER via Ambulatory with complaints of Crush burke Injury To Foot - left. 11:18 The patient presents with an abrasion, a contusion, an injury. The complaints affect burke the left foot. Context: The problem was sustained at home. Onset: The symptoms/episode began/occurred yesterday. Modifying factors: The symptoms are alleviated by elevation of extremity, the symptoms are aggravated by weight bearing, movement, wearing shoes. Associated signs and symptoms: The patient has no apparent associated signs or symptoms. Severity of symptoms: At their worst the symptoms were mild, moderate, in the emergency department the symptoms are unchanged. The patient has not experienced similar symptoms in the past. Historical: - Allergies: 10:34 EGG/POULTRY; ap3 10:34 Nuts; ap3 - PMHx: 10:34 diaphgram hernia; Glaucoma; scoliosis; ap3 - PSHx: 10:34 back SX with rods; ap3 - Immunization history:: Adult Immunizations unknown. - Social history:: Smoking status: Patient reports the use of cigarette tobacco products, smokes one pack cigarettes per day. - Family history:: not pertinent. ROS: 11:18 Constitutional: Negative for fever, chills, and weight loss, Eyes: Negative for injury, burke pain, redness, and discharge, ENT: Negative for injury, pain, and discharge, Neck: Negative for injury, pain, and swelling, Cardiovascular: Negative for chest pain, palpitations, and edema, Respiratory: Negative for shortness of breath, cough, wheezing, and pleuritic chest pain, Abdomen/GI: Negative for abdominal pain, nausea, vomiting, diarrhea, and constipation, Back: Negative for injury and pain, : Negative for injury, bleeding, discharge, and swelling, MS/Extremity: Negative for injury and deformity, Neuro: Negative for headache, weakness, numbness, tingling, and seizure, Psych: Negative for depression, anxiety, suicide ideation, homicidal ideation, and hallucinations, Allergy/Immunology: Negative for hives, rash, and allergies, Endocrine: Negative for neck swelling, polydipsia, polyuria, polyphagia, and marked weight changes, Hematologic/Lymphatic: Negative for swollen nodes, abnormal bleeding, and unusual bruising, 11:18 Skin: Positive for swelling, of the dorsum of left foot, Exam: 11:18 Constitutional: This is a well developed, well nourished patient who is awake, alert, burke and in no acute distress. Head/Face: Normocephalic, atraumatic. Eyes: Pupils equal round and reactive to light, extra-ocular motions intact. Lids and lashes normal. Conjunctiva and sclera are non-icteric and not injected. Cornea within normal limits. Periorbital areas with no swelling, redness, or edema. ENT: Nares patent. No nasal discharge, no septal abnormalities noted. Tympanic membranes are normal and external auditory canals are clear. Oropharynx with no redness, swelling, or masses, exudates, or evidence of obstruction, uvula midline. Mucous membranes moist. Neck: Trachea midline, no thyromegaly or masses palpated, and no cervical lymphadenopathy. Supple, full range of motion without nuchal rigidity, or vertebral point tenderness. No Meningismus. Chest/axilla: Normal chest wall appearance and motion. Nontender with no deformity. No lesions are appreciated. Cardiovascular: Regular rate and rhythm with a normal S1 and S2. No gallops, murmurs, or rubs. Normal PMI, no JVD. No pulse deficits. Respiratory: Lungs have equal breath sounds bilaterally, clear to auscultation and percussion. No rales, rhonchi or wheezes noted. No increased work of breathing, no retractions or nasal flaring. Abdomen/GI: Soft, non-tender, with normal bowel sounds. No distension or tympany. No guarding or rebound. No evidence of tenderness throughout. Back: No spinal tenderness. No costovertebral tenderness. Full range of motion. Male : Normal genitalia with no discharge or lesions. Skin: Warm, dry with normal turgor. Normal color with no rashes, no lesions, and no evidence of cellulitis. Neuro: Awake and alert, GCS 15, oriented to person, place, time, and situation. Cranial nerves II-XII grossly intact. Motor strength 5/5 in all extremities. Sensory grossly intact. Cerebellar exam normal. Normal gait. Psych: Awake, alert, with orientation to person, place and time. Behavior, mood, and affect are within normal limits. 11:18 Musculoskeletal/extremity: ROM: intact in all extremities, full active range of motion, full passive range of motion, Circulation is intact in all extremities. Sensation intact. Compartment Syndrome exam of affected extremity: is normal. Weight bearing: able to fully bear weight, Vital Signs: 10:32 BP 115 / 73; Pulse 100; Resp 18; Temp 98; Pulse Ox 99% ; Weight 54.43 kg; Height 5 ft. ap3 6 in. ; Pain 5/10; 10:45 BP 120 / 71; Pulse 89; Resp 16; Pulse Ox 98% on R/A; db 11:15 BP 114 / 72; Pulse 75; Resp 16; Pulse Ox 99% on R/A; db 10:32 Body Mass Index 19.37 (54.43 kg, 167.64 cm) ap3 10:32 Pain Scale: Adult ap3 MDM: 10:20 Patient medically screened. [facility] 11:21 Differential diagnosis: fracture, sprain, penetrating trauma, cellulitis. Data [facility] reviewed: vital signs, nurses notes, radiologic studies, plain films. Consideration of Admission/Observation Escalation of care including admission/observation considered. I considered the following discharge prescriptions or medication management in the emergency department Medications were administered in the Emergency Department. See MAR. Independent interpretation of the following test(s) in the Emergency Department X-Ray: My interpretation is NO FX. Test considered but Not performed: Labs: NO LABS. Care significantly affected by the following chronic conditions: GLACOMA, DIAPHRAM HERNIA, SCLIOSIS. 08/31 10:26 Order name: Foot Left 3 View XRAY; Complete Time: 11:18 [facility] 08/31 10:38 Order name: Ice pack; Complete Time: 11:07 [facility] 08/31 10:38 Order name: Post-op shoe; Complete Time: 11:41 [facility] Administered Medications: 11:04 Drug: Ibuprofen PO 600 mg PO once Route: PO; db 11:48 Follow up: Response: No adverse reaction db 11:05 Drug: Vawlxdhz-Dfshusnwef-Vcbykrduj Topical Ointment 1 application Topical once Route: db Topical; Site: affected area; 11:48 Follow up: Response: No adverse reaction db 11:07 Not Given (Patient Objection): tetanus toxoid,adsorbed0.5 ml IM once; Provide Vaccine db Information Statement (VIS). Disposition Summary: 08/31/23 11:24 Discharge Ordered Notes: Location: Home [facility] Problem: new burke Symptoms: have improved burke Condition: Stable burke Diagnosis - Contusion of foot burke - Abrasion, left foot burke Followup: burke - With: Private Physician - When: 2 - 3 days - Reason: Recheck today's complaints, Continuance of care, Re-evaluation by your physician Discharge Instructions: - Discharge Summary Sheet burke - Abrasion burke - Contusion burke - Foot Contusion burke - Contusion, Aesk-[id number] burke - Abrasion, Begj-ee-[id number] burke - Foot Pain [facility] Forms: - Medication Reconciliation Form [facility] - Thank You Letter [facility] - Antibiotic Education [facility] - Prescription Opioid Use burke - Patient Portal Instructions [facility] - Leadership Thank You Letter burke - Work release form db Prescriptions: - Centany 2 % Topical ointment - apply 1 application TOPICAL route 3 times per day; 15 gram tube; Refills: 0, burke Product Selection Permitted - Ibuprofen 600 mg Oral tablet - take 1 tablet ORAL route every 6 hours As needed take with food; 21 tablet; burke Refills: 0, Product Selection Permitted Signatures: Dispatcher [employer] Nasir Cerrato MD MD cha Prokisch, Amanda RN RN apElisa Toscano RN RN db
[2023-08-31 14:51] VITALS: BP 114/72; TEMP 98; O2SAT 99
== END ==
LOC: ER 10:14
DX: S90.812A Abrasion, left foot, initial encounter (principal)
CPT/HCPCS: 99284

== ENCOUNTER 2024-02-13 10:11 | Emergency (ER) | payer SELFPAY ==
--- OUTSIDE RECORDS SUMMARY | 2024-02-13 10:16 | XMS REPORT | Continuity of Care Document ---
Author Name Unknown Address [address] [facility] [address] [place] [address] [facility] Address [address] [facility] [address] [place] [address] Care Team Providers Care Obstetric Anaesthetist Name Role Phone Radha Fuentes Primary Care Physician + [phone] JM HOLLAND Attending Clinician Unavailable RADHA MIMS Attending Clinician Unavailable Radha Fuentes Attending Clinician [phone] JACOB NEWMAN Attending Clinician Unavailable Jacob Moeller Attending Clinician [phone] UNKNOWN, ATTENDING Attending Clinician Unavailab CASSIE Hinojosa Attending Clinician UnaJAYLIN Mendez Attending Clinician Unavailable Jaylin Mcclendon PA-C Attending Clinician [phone] Unknown, Attending Attending Clinician Unavailab REEMA Rivera Attending Clinician Unavailable Reema Teixeira MD Attending Clinician [phone] Jesus PRINCIPAL ARCHAEOLOGISTConsuelo GOLD Attending Clinician [phone] 2, [facility] Attending Clinician Unavailable Nurse, [facility] Attending Clinician Un available Doctor Unassigned, [place] Attending Clinician U CHRISTINA Bucio Attending Clinician Unajac Estrella MD, Christina Kwong Attending Clinician [phone]- [phone] Norberto ANTUNEZ, Misael Kaminski Attending Clinician UnavailZAKIA Bundy Attending Clinician Unavailable Song Zakia RIVAS Attending Clinician [phone] DESIRE LOWERY Attending Clinician Agustina vailable Desire Gross Attending Clinician FRANK ANDRES Attending Clinician Unavailable Frank Connors Attending Clinician [phone] King JET MD, James C Attending Clinician [phone] CASSIE MCCLELLAND III Attending Clinician UnavailGABRIELA Ortiz Attending Clinician Unavailab Gabriela Farmer Attending Clinician [phone] RADIOLOGY Attending Clinician Unavailable Radiology Attending Clinician Unavailable 1, [facility] Attending Clinician Unavailable Dereck Hernandez MD Attending Clinician [phone] Lab[facility]rik - Aldair Attending Clinician Unavailable Cassie Joshi MD Attending Clinician + [phone] KAYE WU Attending Clinician Unavailreuben lopez Only, [facility] Test Attending Clinician Unavaila Kaye Gregory MD Attending Clinician [phone] Bert Toscano DO Attending Clinician BERT TOSCANO Attending Clinician Unavail able CHRISTY ROMAN Attending Clinician Unavailable ABA MOSER Attending Clinician UnavailDESIRE Barron Admitting Clinician Agustina vailable Payers Payer Name Policy Type Policy Number Effective Date Expirati on Date Source [facility] [id number] 2021 00:00:00 [employer] MEDICAID [id number] 2018 00:00:00 Problems Condition Name Condition Details Condition Category Status Onset Date Resolution Date Last Treatment Date Treating Clinician Comments Source No known active problems No known active problems Disease [facility] Allergies, Adverse Reactions, Alerts Allergy Name Allergy Type Status Severity Reaction(s) Onset Date Inactive Date Treating Clinician Comments Source EGG DRUG INGREDI Active High Hives 10-13 00:00: 00 [facility] PEANUT DRUG INGREDI Active High Anaphylaxis 10-13 00:00: 00 [facility] Egg Propensi ty to adverse reaction s Active Hives 10-13 00:00: 00 [facility] Peanut Propensi ty to adverse reaction s Active Anaphylaxis 10-13 00:00: 00 [facility] NO KNOWN ALLERGIE S Drug Class Active [facility] Social History Social Habit Start Date Stop Date Quantity Comments Source History of tobacco use Cigarette Smoker [facility] Alcohol intake 2023-03-19 00:00:00 2023-03-19 00:00:00 Ex-drinker (finding) [facility] History of Social function 2023-02-22 00:00:00 2023-02-22 00:00:00 [facility] Cigarettes smoked current (pack per day) - Reported 2023-02-04 00:00:00 2023-02-04 00:00:00 [facility] Tobacco use and exposure 2023-02-04 00:00:00 2023-02-04 00:00:00 Smokeless tobacco non-user [facility] Exposure to SARS-CoV-2 (event) 2023-01-24 00:00:00 2023-02-03 16:14:00 Not sure [facility] Sex Assigned At 2000 00:00:00 2000 00:00:00 [facility] Smoking Status Start Date Stop Date Source Smokes tobacco daily 2023-02-04 00:00:00 [facility] Medications Ordered Medication Name Filled Medication Name Start Date Stop Date Current Medication? Ordering Clinician Indication Dosage Frequency Signature (SIG) Comments Components Source busPIRone 5 mg tablet 11-28 00:00: 00 Yes [id number] 5mg Take 1 tablet by mouth 2 (two) times daily as needed for Other (anxiety). [facility] albuterol 90 mcg/actuati on inhaler 11-28 00:00: 00 Yes [id number] 2{puff} Inhale 2 Puffs every 6 (six) hours as needed for Wheezing or Shortness of Breath. [facility] methylPREDN ISolone (MEDROL, MARTIN,) 4 mg tablets 03-19 00:00: 00 Yes [id number] Take by mouth SEE-INSTRU CTIONS. follow package directions [facility] amoxicillin -clavulanat e (AUGMENTIN) 875-125 mg per tablet 03-19 00:00: 00 03-30 04:59 :00 No [id number] 1{tbl} Take 1 tablet by mouth in the morning and 1 tablet in the evening. Do all this for 10 days. [facility] busPIRone 5 mg tablet 02-22 00:00: 00 11-28 00:00 :00 No [id number] 5mg Take 1 tablet by mouth 2 (two) times daily as needed for Other (anxiety). [facility] nicotine 14 mg/24 hr patch 02-22 00:00: 00 03-25 04:59 :00 No [id number] 1{patch } Apply 1 Patch to area(s) every 24 (twenty-fo ur) hours for 30 days. [facility] nicotine 7 mg/24 hr patch 02-22 00:00: 00 03-25 04:59 :00 No [id number] 1{patch } Apply 1 Patch to area(s) every 24 (twenty-fo ur) hours for 30 days. [facility] nicotine 21 mg/24 hr patch 02-22 00:00: 00 03-25 04:59 :00 No [id number] 1{patch } Apply 1 Patch to area(s) every 24 (twenty-fo ur) hours for 30 days. [facility] buPROPion SR (WELLBUTRIN SR) 150 mg SR tablet 526 00:00: 00 02-22 00:00 :00 No [id number] 150mg Take 1 tablet by mouth in the morning and 1 tablet in the evening. Do all this for 90 days. [facility] albuterol 90 mcg/actuati on inhaler 525 00:00: 00 11-28 00:00 :00 No [id number] 2{puff} Inhale 2 Puffs every 6 (six) hours as needed for Wheezing or Shortness of Breath. [facility] omeprazole 40 mg capsule 5 00:00: 00 Yes TAKE 1 CAPSULE BY MOUTH ONCE DAILY, DO NOT CRUSH OR CHEW [facility] azelastine 137 mcg (0.1 %) nasal spray 10-26 00:00: 00 02-04 00:00 :00 No [id number] 1{spray } Use 1 [place] in each nostril in the morning and 1 [place] in the evening. Use in each nostril as directed [facility] fluticasone propionate 50 mcg/actuati on nasal spray 10-26 00:00: 00 02-04 00:00 :00 No [id number] 1{spray } Use 1 [place] in each nostril in the morning. [facility] ibuprofen 600 mg tablet 10-26 00:00: 00 02-04 00:00 :00 No [id number] 600mg Take 1 tablet by mouth every 6 (six) hours as needed for Pain (scale 4-6) or Pain (scale 1-3). [facility] maalox/diph enhydrAMINE :lidocaine2 % viscous 1:1:1 Susp suspension 10-26 00:00: 00 02-04 00:00 :00 No [id number] 5mL Take 5 mL by mouth 3 (three) times daily as needed (gargle and spit). [facility] meloxicam 15 mg tablet 10-13 00:00: 00 11-13 05:59 :00 No [id number] 15mg Take 1 tablet by mouth in the morning for 30 days. [facility] methocarbam oL 500 mg tablet 10-13 00:00: 00 11-13 05:59 :00 No [id number] 500mg Take 1 tablet by mouth every evening for 30 days. [facility] pantoprazol e 40 mg EC tablet 09-16 00:00: 00 02-04 00:00 :00 No [id number] 40mg Take 1 tablet by mouth in the morning and 1 tablet in the evening. [facility] ondansetron 4 mg tablet 1-04 00:00: 00 02-04 00:00 :00 No [id number] 4mg Take 1 tablet by mouth every 8 (eight) hours as needed for Nausea and Vomiting (N/V). [facility] sulfamethox azole-trime thoprim (BACTRIM DS) 800-160 mg per tablet 2021-09 1-13 00:00: 00 08-03 05:59 :00 No [id number] 1{tbl} Take 1 tablet by mouth in the morning and 1 tablet in the evening. Do all this for 7 days. [facility] varenicline 1 mg tablet 05-05 00:00: 00 06-08 00:00 :00 No [id number] 1mg Take 1 tablet by mouth 2 (two) times daily. [facility] terbinafine HCL 250 mg tablet 05-05 00:00: 00 06-08 00:00 :00 No [id number] 250mg Take 1 tablet by mouth daily. [facility] busPIRone 5 mg tablet 04-30 00:00: 00 02-22 00:00 :00 No [id number] 5mg Take 1 tablet by mouth 3 (three) times daily. [facility] varenicline (CHANTIX STARTING MONTH BOX) 0.5 mg (11)- 1 mg (42) tablet 04-30 00:00: 00 06-08 00:00 :00 No [id number] Take one 0.5mg tab by mouth once daily for 3 days, then one 0.5mg tab twice daily for 4 days, then one 1mg tab twice daily. [facility] busPIRone 5 mg tablet 04-07 00:00: 00 06-08 00:00 :00 No 5mg Take 5 mg by mouth. [facility] omeprazole 20 mg capsule 1-04 00:00: 00 06-08 00:00 :00 No 1{capsu le} Take 1 capsule by mouth. [facility] Immunizations Ordered Immunization Name Filled Immunization Name Date Status Comments Source Meningococcal Polysaccharide (groups A, C, Y and W-135) conjugate vaccine (MCV4P) 2021-04-30 00:00:00 Completed [facility] Meningococcal Polysaccharide (groups A, C, Y and W-135) conjugate vaccine (MCV4P) 2021-04-30 00:00:00 Completed [facility] Meningococcal Polysaccharide (groups A, C, Y and W-135) conjugate vaccine (MCV4P) 2021-04-30 00:00:00 Completed [facility] Meningococcal Polysaccharide (groups A, C, Y and W-135) conjugate vaccine (MCV4P) 2021-04-30 00:00:00 Completed [facility] Meningococcal Polysaccharide (groups A, C, Y and W-135) conjugate vaccine (MCV4P) 2021-04-30 00:00:00 Completed [facility] Meningococcal Polysaccharide (groups A, C, Y and W-135) conjugate vaccine (MCV4P) 2021-04-30 00:00:00 Completed [facility] Meningococcal Polysaccharide (groups A, C, Y and W-135) conjugate vaccine (MCV4P) 2021-04-30 00:00:00 Completed [facility] Meningococcal Polysaccharide (groups A, C, Y and W-135) conjugate vaccine (MCV4P) 2021-04-30 00:00:00 Completed [facility] Meningococcal Polysaccharide (groups A, C, Y and W-135) conjugate vaccine (MCV4P) 2021-04-30 00:00:00 Completed [facility] Meningococcal Polysaccharide (groups A, C, Y and W-135) conjugate vaccine (MCV4P) 2021-04-30 00:00:00 Completed [facility] Meningococcal Polysaccharide (groups A, C, Y and W-135) conjugate vaccine (MCV4P) 2021-04-30 00:00:00 Completed [facility] Meningococcal Polysaccharide (groups A, C, Y and W-135) conjugate vaccine (MCV4P) 2021-04-30 00:00:00 Completed [facility] Meningococcal Polysaccharide (groups A, C, Y and W-135) conjugate vaccine (MCV4P) 2021-04-30 00:00:00 Completed [facility] Meningococcal Polysaccharide (groups A, C, Y and W-135) conjugate vaccine (MCV4P) 2021-04-30 00:00:00 Completed [facility] Meningococcal Polysaccharide (groups A, C, Y and W-135) conjugate vaccine (MCV4P) 2021-04-30 00:00:00 Completed [facility] Meningococcal Polysaccharide (groups A, C, Y and W-135) conjugate vaccine (MCV4P) 2021-04-30 00:00:00 Completed [facility] Meningococcal Polysaccharide (groups A, C, Y and W-135) conjugate vaccine (MCV4P) 2021-04-30 00:00:00 Completed [facility] Meningococcal Polysaccharide (groups A, C, Y and W-135) conjugate vaccine (MCV4P) 2021-04-30 00:00:00 Completed [facility] Meningococcal Polysaccharide (groups A, C, Y and W-135) conjugate vaccine (MCV4P) 2021-04-30 00:00:00 Completed [facility] Meningococcal Polysaccharide (groups A, C, Y and W-135) conjugate vaccine (MCV4P) 2021-04-30 00:00:00 Completed [facility] Meningococcal Polysaccharide (groups A, C, Y and W-135) conjugate vaccine (MCV4P) 2021-04-30 00:00:00 Completed [facility] Meningococcal Polysaccharide (groups A, C, Y and W-135) conjugate vaccine (MCV4P) 2021-04-30 00:00:00 Completed [facility] Meningococcal Polysaccharide (groups A, C, Y and W-135) conjugate vaccine (MCV4P) 2021-04-30 00:00:00 Completed [facility] Meningococcal Polysaccharide (groups A, C, Y and W-135) conjugate vaccine (MCV4P) 2021-04-30 00:00:00 Completed [facility] Meningococcal Polysaccharide (groups A, C, Y and W-135) conjugate vaccine (MCV4P) 2021-04-30 00:00:00 Completed [facility] Meningococcal Polysaccharide (groups A, C, Y and W-135) conjugate vaccine (MCV4P) 2021-04-30 00:00:00 Completed [facility] Meningococcal Polysaccharide (groups A, C, Y and W-135) conjugate vaccine (MCV4P) 2021-04-30 00:00:00 Completed [facility] Meningococcal Polysaccharide (groups A, C, Y and W-135) conjugate vaccine (MCV4P) 2021-04-30 00:00:00 Completed [facility] Meningococcal Polysaccharide (groups A, C, Y and W-135) conjugate vaccine (MCV4P) 2021-04-30 00:00:00 Completed [facility] Meningococcal Polysaccharide (groups A, C, Y and W-135) conjugate vaccine (MCV4P) 2021-04-30 00:00:00 Completed [facility] Meningococcal Polysaccharide (groups A, C, Y and W-135) conjugate vaccine (MCV4P) 2021-04-30 00:00:00 Completed [facility] Meningococcal Polysaccharide (groups A, C, Y and W-135) conjugate vaccine (MCV4P) 2021-04-30 00:00:00 Completed [facility] Meningococcal Polysaccharide (groups A, C, Y and W-135) conjugate vaccine (MCV4P) 2021-04-30 00:00:00 Completed [facility] Meningococcal Polysaccharide (groups A, C, Y and W-135) conjugate vaccine (MCV4P) 2021-04-30 00:00:00 Completed [facility] Meningococcal Polysaccharide (groups A, C, Y and W-135) conjugate vaccine (MCV4P) 2021-04-30 00:00:00 Completed [facility] Meningococcal Polysaccharide (groups A, C, Y and W-135) conjugate vaccine (MCV4P) 2021-04-30 00:00:00 Completed [facility] Meningococcal Polysaccharide (groups A, C, Y and W-135) conjugate vaccine (MCV4P) 2021-04-30 00:00:00 Completed [facility] Meningococcal Polysaccharide (groups A, C, Y and W-135) conjugate vaccine (MCV4P) 2021-04-30 00:00:00 Completed [facility] Meningococcal Polysaccharide (groups A, C, Y and W-135) conjugate vaccine (MCV4P) 2021-04-30 00:00:00 Completed [facility] Meningococcal Polysaccharide (groups A, C, Y and W-135) conjugate vaccine (MCV4P) 2021-04-30 00:00:00 Completed [facility] Meningococcal Polysaccharide (groups A, C, Y and W-135) conjugate vaccine (MCV4P) 2021-04-30 00:00:00 Completed [facility] Meningococcal Polysaccharide (groups A, C, Y and W-135) conjugate vaccine (MCV4P) 2021-04-30 00:00:00 Completed [facility] Meningococcal Polysaccharide (groups A, C, Y and W-135) conjugate vaccine (MCV4P) 2021-04-30 00:00:00 Completed [facility] Meningococcal Polysaccharide (groups A, C, Y and W-135) conjugate vaccine (MCV4P) 2021-04-30 00:00:00 Completed [facility] Meningococcal Polysaccharide (groups A, C, Y and W-135) conjugate vaccine (MCV4P) 2021-04-30 00:00:00 Completed [facility] Meningococcal Polysaccharide (groups A, C, Y and W-135) conjugate vaccine (MCV4P) 2021-04-30 00:00:00 Completed [facility] Meningococcal Polysaccharide (groups A, C, Y and W-135) conjugate vaccine (MCV4P) 2021-04-30 00:00:00 Completed [facility] Meningococcal Polysaccharide (groups A, C, Y and W-135) conjugate vaccine (MCV4P) Unknown Completed [facility] Meningococcal Polysaccharide (groups A, C, Y and W-135) conjugate vaccine (MCV4P) Unknown Completed [facility] Meningococcal Polysaccharide (groups A, C, Y and W-135) conjugate vaccine (MCV4P) Unknown Completed [facility] Vital Signs Vital Name Observation Time Observation Value Comments S ource Systolic blood pressure 2023-05-18 20:37:00 123 mm[Hg] [facility] Diastolic blood pressure 2023-05-18 20:37:00 76 mm[Hg] [facility] Heart rate 2023-05-18 20:37:00 78 /min [facility] Body temperature 2023-05-18 20:37:00 37.11 Jennifer [facility] Respiratory rate 2023-05-18 20:37:00 16 /min [facility] Body height 2023-05-18 20:37:00 162.6 cm [facility] Body weight 2023-05-18 20:37:00 63.504 kg [facility] BMI 2023-05-18 20:37:00 24.03 kg/m2 [facility] Oxygen saturation in Arterial blood by Pulse oximetry 2023-05-18 20:37:00 98 /min [facility] Systolic blood pressure 2023-03-19 17:56:00 108 mm[Hg] [facility] Diastolic blood pressure 2023-03-19 17:56:00 69 mm[Hg] [facility] Heart rate 2023-03-19 17:56:00 82 /min [facility] Respiratory rate 2023-03-19 17:56:00 19 /min [facility] Body height 2023-03-19 17:56:00 162.6 cm [facility] Body weight 2023-03-19 17:56:00 64.184 kg [facility] BMI 2023-03-19 17:56:00 24.29 kg/m2 [facility] Oxygen saturation in Arterial blood by Pulse oximetry 2023-03-19 17:56:00 96 /min [facility] Systolic blood pressure 2023-03-17 17:57:00 105 mm[Hg] [facility] Diastolic blood pressure 2023-03-17 17:57:00 65 mm[Hg] [facility] Heart rate 2023-03-17 17:57:00 82 /min [facility] Body temperature 2023-03-17 17:57:00 37 Jennifer [facility] Respiratory rate 2023-03-17 17:57:00 16 /min [facility] Body height 2023-03-17 17:57:00 162.6 cm [facility] Body weight 2023-03-17 17:57:00 63.866 kg [facility] BMI 2023-03-17 17:57:00 24.17 kg/m2 [facility] Oxygen saturation in Arterial blood by Pulse oximetry 2023-03-17 17:57:00 97 /min [facility] Systolic blood pressure 2023-02-22 17:49:00 112 mm[Hg] [facility] Diastolic blood pressure 2023-02-22 17:49:00 75 mm[Hg] [facility] Heart rate 2023-02-22 17:49:00 68 /min [facility] Body temperature 2023-02-22 17:49:00 36.89 Jennifer [facility] Respiratory rate 2023-02-22 17:49:00 18 /min [facility] Body height 2023-02-22 17:49:00 162.6 cm [facility] Body weight 2023-02-22 17:49:00 62.188 kg [facility] BMI 2023-02-22 17:49:00 23.53 kg/m2 [facility] Oxygen saturation in Arterial blood by Pulse oximetry 2023-02-22 17:49:00 97 /min [facility] Systolic blood pressure 2023-02-16 20:28:00 117 mm[Hg] [facility] Diastolic blood pressure 2023-02-16 20:28:00 71 mm[Hg] [facility] Heart rate 2023-02-16 20:28:00 86 /min [facility] Body temperature 2023-02-16 20:28:00 36.06 Jennifer [facility] Respiratory rate 2023-02-16 20:28:00 18 /min [facility] Body height 2023-02-16 20:28:00 162.6 cm [facility] Body weight 2023-02-16 20:28:00 62.732 kg [facility] BMI 2023-02-16 20:28:00 23.74 kg/m2 [facility] Oxygen saturation in Arterial blood by Pulse oximetry 2023-02-16 20:28:00 97 /min [facility] Systolic blood pressure 2023-02-04 19:54:00 121 mm[Hg] [facility] Diastolic blood pressure 2023-02-04 19:54:00 80 mm[Hg] [facility] Heart rate 2023-02-04 19:54:00 82 /min [facility] Respiratory rate 2023-02-04 19:54:00 18 /min [facility] Body height 2023-02-04 19:54:00 162.6 cm [facility] Body weight 2023-02-04 19:54:00 61.871 kg [facility] BMI 2023-02-04 19:54:00 23.41 kg/m2 [facility] Oxygen saturation in Arterial blood by Pulse oximetry 2023-02-04 19:54:00 97 /min [facility] Systolic blood pressure 2023-02-03 21:34:00 137 mm[Hg] [facility] Diastolic blood pressure 2023-02-03 21:34:00 78 mm[Hg] [facility] Heart rate 2023-02-03 21:34:00 76 /min [facility] Body temperature 2023-02-03 21:34:00 36.67 Jennifer [facility] Respiratory rate 2023-02-03 21:34:00 16 /min [facility] Body weight 2023-02-03 21:34:00 61.689 kg [facility] Oxygen saturation in Arterial blood by Pulse oximetry 2023-02-03 21:34:00 98 /min [facility] Systolic blood pressure 2022-11-10 18:54:00 119 mm[Hg] [facility] Diastolic blood pressure 2022-11-10 18:54:00 79 mm[Hg] [facility] Heart rate 2022-11-10 18:54:00 78 /min [facility] Body temperature 2022-11-10 18:54:00 36.22 Jennifer [facility] Body height 2022-11-10 18:54:00 162.6 cm [facility] Body weight 2022-11-10 18:54:00 63.005 kg [facility] BMI 2022-11-10 18:54:00 23.84 kg/m2 [facility] Systolic blood pressure 2022-10-26 23:20:00 127 mm[Hg] [facility] Diastolic blood pressure 2022-10-26 23:20:00 74 mm[Hg] [facility] Heart rate 2022-10-26 23:20:00 82 /min [facility] Body temperature 2022-10-26 23:20:00 37.11 Jennifer [facility] Respiratory rate 2022-10-26 23:20:00 17 /min [facility] Body height 2022-10-26 23:20:00 162.6 cm [facility] Body weight 2022-10-26 23:20:00 62.687 kg [facility] BMI 2022-10-26 23:20:00 23.72 kg/m2 [facility] Oxygen saturation in Arterial blood by Pulse oximetry 2022-10-26 23:20:00 99 /min [facility] Systolic blood pressure 2022-10-13 21:06:00 124 mm[Hg] [facility] Diastolic blood pressure 2022-10-13 21:06:00 85 mm[Hg] [facility] Heart rate 2022-10-13 21:06:00 72 /min [facility] Body temperature 2022-10-13 21:06:00 36.5 Jennifer [facility] Body height 2022-10-13 21:06:00 162.6 cm [facility] Body weight 2022-10-13 21:06:00 63.776 kg [facility] BMI 2022-10-13 21:06:00 24.13 kg/m2 [facility] Systolic blood pressure 2022-09-18 15:34:00 120 mm[Hg] [facility] Diastolic blood pressure 2022-09-18 15:34:00 66 mm[Hg] [facility] Heart rate 2022-09-18 15:34:00 76 /min [facility] Body temperature 2022-09-18 15:34:00 36.72 Jennifer [facility] Respiratory rate 2022-09-18 15:34:00 18 /min [facility] Body height 2022-09-18 15:34:00 162.6 cm [facility] weight 2022-09-18 15:34:00 65.772 kg [facility] BMI 2022-09-18 15:34:00 24.89 kg/m2 [facility] Oxygen saturation in Arterial blood by Pulse oximetry 2022-09-18 15:34:00 99 /min [facility] Systolic blood pressure 2022-09-16 16:52:00 129 mm[Hg] [facility] Diastolic blood pressure 2022-09-16 16:52:00 82 mm[Hg] [facility] Heart rate 2022-09-16 16:52:00 83 /min Un[facility] Body temperature 2022-09-16 16:52:00 37.06 Jennifer [facility] Respiratory rate 2022-09-16 16:52:00 18 /min [facility] Body height 2022-09-16 16:52:00 162.6 cm [facility] Body weight 2022-09-16 16:52:00 65.772 kg [facility] BMI 2022-09-16 16:52:00 24.89 kg/m2 [facility] Oxygen saturation in Arterial blood by Pulse oximetry 2022-09-16 16:52:00 97 /min [facility] Systolic blood pressure 2022-07-26 22:46:00 118 mm[Hg] [facility] Diastolic blood pressure 2022-07-26 22:46:00 63 mm[Hg] [facility] Heart rate 2022-07-26 22:46:00 85 /min [facility] Body temperature 2022-07-26 22:46:00 37 Jennifer [facility] Respiratory rate 2022-07-26 22:46:00 16 /min [facility] Body height 2022-07-26 22:46:00 162.6 cm [facility] Body weight 2022-07-26 22:46:00 65.318 kg [facility] BMI 2022-07-26 22:46:00 24.72 kg/m2 [facility] Oxygen saturation in Arterial blood by Pulse oximetry 2022-07-26 22:46:00 99 /min [facility] Systolic blood pressure 2022-06-08 18:22:00 102 mm[Hg] [facility] Diastolic blood pressure 2022-06-08 18:22:00 67 mm[Hg] [facility] Heart rate 2022-06-08 18:22:00 73 /min [facility] Body height 2022-06-08 18:22:00 162.6 cm [facility] Body weight 2022-06-08 18:22:00 63.957 kg [facility] BMI 2022-06-08 18:22:00 24.20 kg/m2 [facility] Procedures Procedure Date / Time Performed Performing Clinician Source ASSIGNMENT OF BENEFITS 2023-05-18 21:10:43 Docto r Unassigned, [place] [facility] CONSENT/REFUSAL FOR DIAGNOSIS AND TREATMENT 2023-05-18 20:25:38 Doctor Unassigned, [place] [facility] XR FOOT 3+ VW RIGHT 2023-03-17 18:47:37 Irene Mcclendon [facility] FREE T4 2023-02-04 20:39:00 Radha Mims [facility] THYROID STIMULATING HORMONE 2023-02-04 20:39:00 Phillip Mimsssica [facility] COMP. METABOLIC PANEL (59586) 2023-02-04 20:39:00 Prasanna Radha [facility] LIPID PANEL (93704)(TOTAL CHOLESTEROL, TRIGLYCERIDES, HDL) 2023-02-04 20:39:00 Radha Mims [facility] CBC WITH DIFF 2023-02-04 20:39:00 Radha Mims [facility] GLYCOSYLATED HEMOGLOBIN (A1C) 2023-02-04 20:39:00 Prasanna Radha [facility] URINALYSIS 2023-02-04 20:39:00 Radha Mims [facility] HCV ANTIBODY 2023-02-04 20:39:00 [facility] 2023-02-03 21:15:52 Doctor Unassigned, [place] [facility] POCT MOLECULAR FLU 2022-10-26 23:40:00 Unknown, Attend ing [facility] POCT MOLECULAR STREP 2022-10-26 23:36:00 Unknown, Atte nding [facility] POCT MOLECULAR STREP 2022-09-18 15:39:00 Unknown, Atte nding [facility] REFERRAL- REQUEST/RESPONSE 2022-06-25 05:01:00 Doctor Unassigned, [place] [facility] XR LUMBAR SPINE 3 VW 2022-06-10 16:57:35 Requisition, Paper [facility] ASSIGNMENT OF BENEFITS 2022-06-08 18:16:31 Docto r Unassigned, [place] [facility] Encounters Start Date/Time End Date/Time Encounter Type Admission Type Attending [facility] Care Facility Care Department Encounter ID Source 2022-06-24 10:00:00 Inpatient JM DAVIS [facility] [id number] [facility] 2023-11-28 00:00:00 2023-11-28 00:00:00 Telephone Radha Mims [facility] 1..840.114 350.1.13.10 4.2.7.2.686 [id number] [facility] 2023-08-26 10:00:00 2023-08-26 10:00:00 Outpatient R RADHA MIMS [facility] [id number] [facility] 2023-05-18 15:38:00 2023-05-18 17:54:00 Emergency X JACOB NEWMAN [facility] ERT [id number] [facility] 2023-05-18 15:38:00 2023-05-18 17:54:00 Emergency Jacob Newman [facility] 1..840.114 350.1.13.10 4.2.7.2.686 [id number] [facility] 2023-05-17 15:20:00 2023-05-17 15:20:00 Outpatient R UNKNOWN, ATTENDING [facility] [id number] [facility] 2023-04-01 09:45:00 2023-04-01 09:45:00 Outpatient R CASSIE JOSHI [facility] [id number] [facility] 2023-03-19 13:00:00 2023-03-19 13:43:10 Outpatient R PRASANNA RADAH [facility] [id number] [facility] 2023-03-19 13:00:00 2023-03-19 13:43:10 Office Visit Phillip [facility]imsssica [facility] 1.2.840.114 350.1.13.10 4.2.7.2.686 [id number] [facility] 2023-03-17 13:02:40 2023-03-17 23:59:00 Outpatient R JAYLIN MCCLENDON [facility] [id number] [facility] 2023-03-17 13:02:40 2023-03-17 23:59:00 Hospital Encounter Jaylin Mcclendon [facility] 1.2.840.114 350.1.13.10 4.2.7.2.686 [id number] [facility] 2023-03-17 12:40:00 2023-03-17 13:57:04 Urgent Care Jaylin Mcclendon, Attending [facility] 1..840.114 350.1.13.10 4.2.7.2.686 [id number] [facility] 2023-03-11 10:00:00 2023-03-11 10:00:00 Outpatient R REEMA TEIXEIRA [facility] [id number] [facility] 2023-03-08 11:30:00 2023-03-08 11:30:00 Outpatient R RADHA MIMS [facility] [id number] [facility] 2023-02-23 09:30:00 2023-02-23 09:30:00 Outpatient R HECTOR TEIXEIRAFORMERLY [facility] [id number] [facility] 2023-02-22 13:00:00 2023-02-22 13:21:43 Outpatient R RADHA MIMS [facility] [id number] [facility] 2023-02-22 13:00:00 2023-02-22 13:21:43 Office Visit Phillip Mimsssica [facility] NAL [facility]ILD[facility] 1.2.840.114 350.1.13.10 4.2.7.2.686 [id number] [facility] 2023-02-16 15:40:00 2023-02-16 16:00:00 Office Visit Reema Teixeira [facility] 1.2.840.114 350.1.13.10 4.2.7.2.686 [id number] [facility] 2023-02-16 15:40:00 2023-02-16 15:40:00 Outpatient R REEMA TEIXEIRA [facility] [id number] [facility] 2023-02-16 00:00:00 2023-02-16 00:00:00 Telephone Radha Mims [facility] NAL [facility] 1.2.840.114 350.1.13.10 4.2.7.2.686 [id number] [facility] 2023-02-09 00:00:00 2023-02-09 00:00:00 Patient Outreach Consuelo Lee [facility] 1.2.840.114 350.1.13.10 4.2.7.2.686 [id number] [facility] 2023-02-05 00:00:00 2023-02-05 00:00:00 Telephone Radha Mims [facility] 1.2.840.114 350.1.13.10 4.2.7.2.686 [id number] [facility] 2023-02-04 15:45:00 2023-02-04 23:59:00 Hospital Encounter Radha Mims [facility] 1.2840.114 350.1.13.10 4.2.7.2.686 [id number] [facility] 2023-02-04 16:00:00 2023-02-04 16:15:00 Pulp Drier Firer Visit 2, Adc Lab Prasanna [facility] BUILDING 1..840.114 350.1.13.10 4.2.7.2.686 [id number] [facility] 2023-02-04 15:00:00 2023-02-04 15:22:29 Outpatient R PRASANNA RADHA [facility] [id number] [facility] 2023-02-04 15:00:00 2023-02-04 15:22:29 Office Visit Radha Mims [facility] BU[facility] 1.2.840.114 350.1.13.10 4.2.7.2.686 [id number] [facility] 2023-02-03 16:15:00 2023-02-03 16:35:00 Nurse Visit Nurse, Erik Quinteros [facility] Unknown, [facility] 1.2.84.114 350.1.13.10 4.2.7.2.686 [id number] [facility] 2023-02-03 16:15:00 2023-02-03 16:15:00 Outpatient R MADINA MIMSICA [facility] [id number] [facility] 2023-02-03 00:00:00 2023-02-03 00:00:00 Orders Only Doctor Unassigned, [place] [facility] 1.114 350.1.13.10 4.2.7.2.686 [id number] [facility] 2022-12-15 11:00:00 2022-12-15 11:00:00 Outpatient R [facility] [id number] [facility] 2022-11-30 10:15:00 2022-11-30 10:15:00 Outpatient CHRISTINA IGLESIAS [facility] [id number] [facility] 2022-11-10 13:00:00 2022-11-10 14:10:53 Outpatient CHRISTINA IGLESIAS [facility] [id number] [facility] 2022-11-10 13:00:00 2022-11-10 14:10:53 Office Visit Christina Estrella [facility] 1.114 350.1.13.10 4.2.7.2.686 [id number] [facility] 2022-10-27 00:00:00 2022-10-27 00:00:00 Letter (Out) Misael Thornton [facility] 1..114 350.1.13.10 4.2.7.2.686 [id number] [facility] 2022-10-26 17:20:00 2022-10-26 17:53:20 Outpatient ZAKIA DU [facility] [id number] [facility] 2022-10-26 17:20:00 2022-10-26 17:53:20 Urgent Care Zakia Parker Unknown, Attending [facility] 1.84.114 350.1.13.10 4.2.7.2.686 [id number] [facility] 2022-10-26 00:00:00 2022-10-26 00:00:00 Telephone Christina Estrella [facility] 1.2840.114 350.1.13.10 4.2.7.2.686 [id number] [facility] 2022-10-19 10:54:54 2022-10-19 23:59:00 Outpatient R [facility]ERR[facility]JUSTA [facility]NE [facility] [id number] [facility] 2022-10-19 10:54:54 2022-10-19 23:59:00 Hospital Encounter Desire Ramos [facility] 1.2840.114 350.1.13.10 4.2.7.2.686 [id number] [facility] 2022-10-14 00:00:00 2022-10-14 00:00:00 Telephone Christina Estrella [facility] 1.840.114 350.1.13.10 4.2.7.2.686 [id number] [facility] 2022-10-13 15:08:19 2022-10-13 23:59:00 Hospital Encounter Christina Estrella Varghese [facility] 1.2840.114 350.1.13.10 4.2.7.2.686 [id number] [facility] 2022-10-13 15:10:00 2022-10-13 16:09:53 Outpatient R CHRISTINA ESTRELLA [facility] [id number] [facility] 2022-10-13 15:10:00 2022-10-13 16:09:53 Office Visit Christina Estrella [facility] 1.840.114 350.1.13.10 4.2.7.2.686 [id number] [facility] 2022-09-18 09:40:00 2022-09-18 10:00:58 Outpatient R GRACIA ANDRESJOAO [facility] [id number] [facility] 2022-09-18 09:40:00 2022-09-18 10:00:58 Urgent Care Frank Andres Unknown, Attending [facility] 1..840.114 350.1.13.10 4.2.7.2.686 [id number] [facility] 2022-09-18 00:00:00 2022-09-18 00:00:00 Letter (Out) Frank Andres [facility] 1..840.114 350.1.13.10 4.2.7.2.686 [id number] [facility] 2022-09-16 10:40:00 2022-09-16 11:00:00 Urgent Care Cassie Mcclelland Unknown, Attending [facility] 1..840.114 350.1.13.10 4.2.7.2.686 [id number] [facility] 2022-09-16 10:40:00 2022-09-16 10:40:00 Outpatient R CASSIE MCCLELLAND III [facility] [id number] [facility] 2022-09-16 00:00:00 2022-09-16 00:00:00 Letter (Out) Cassie Mcclelland [facility] 1..840.114 350.1.13.10 4.2.7.2.686 [id number] [facility] 2022-07-26 16:40:00 2022-07-26 17:08:58 Outpatient R GABRIELA GARSIA [facility] [id number] [facility] 2022-07-26 16:40:00 2022-07-26 17:08:58 Urgent Care Olga, Gabriela Alarcon Unknown, Attending [facility] 1.20.114 350.1.13.10 4.2.7.2.686 [id number] [facility] 2022-07-26 00:00:00 2022-07-26 00:00:00 Letter (Out) Olga, Gabriela [facility] 1..114 350.1.13.10 4.2.7.2.686 [id number] [facility] 2022-07-10 10:27:00 2022-07-10 10:27:00 Outpatient JM DAVIS [facility] [id number] [facility] 2022-07-03 00:00:00 2022-07-03 00:00:00 Patient Secure Msg Doctor Unassigned, [place] [facility] 1..114 350.1.13.10 4.2.7.2.686 [id number] [facility] 2022-06-25 00:00:00 2022-06-25 00:00:00 Orders Only Doctor Unassigned, [place] [facility] 1.2840.114 350.1.13.10 4.2.7.2.686 [id number] [facility] 2022-06-10 11:33:47 2022-06-10 23:59:00 Outpatient R RADIOLOGY [facility] [id number] [facility] 2022-06-10 11:30:00 2022-06-10 23:59:00 Hospital Encounter Radiology [facility] 1.0.114 350.1.13.10 4.2.7.2.686 [id number] [facility] 2022-06-10 10:45:00 2022-06-10 11:00:00 Pulp Drier Firer Visit 1, Adc Daniel Dereck Hernandez [facility] 1.2.840.114 350.1.13.10 4.2.7.2.686 [id number] [facility] 2022-06-09 09:15:00 2022-06-09 09:15:00 Outpatient CASSIE WHITE [facility] [id number] [facility] 2022-06-09 09:15:00 2022-06-09 09:15:00 Pulp Drier Firer Visit Lab, Erik Joshi [facility] 1..840.114 350.1.13.10 4.2.7.2.686 [id number] [facility] 2022-06-08 13:30:00 2022-06-08 13:45:00 Office Visit Harishsterlingparas [facility] 1..840.114 350.1.13.10 4.2.7.2.686 [id number] [facility] 2022-06-08 13:30:00 2022-06-08 13:30:00 Outpatient CASSIE WHITE [facility] [id number] [facility] 2022-06-08 00:00:00 2022-06-08 00:00:00 Orders Only Doctor Unassigned, [place] [facility] 1.840.114 350.1.13.10 4.2.7.2.686 [id number] [facility] 2021-10-30 18:00:00 2021-10-30 18:00:00 Outpatient R [facility] [id number] [facility] 2021-05-16 15:15:00 2021-05-16 15:15:00 Outpatient R TAMAR WUBETH [facility] [id number] [facility] 2021-05-16 14:05:16 2021-05-16 14:20:16 Laboratory Only Only, Adc Pob2 Test Kaye Wu [facility] 1.2.840.114 350.1.13.10 4.2.7.2.686 [id number] [facility] 2021-05-09 15:49:54 2021-05-09 15:54:14 Laboratory Only Only, Adc Pob2 Test Bert Toscano [facility] 1.2.840.114 350.1.13.10 4.2.7.2.686 [id number] [facility] 2021-05-09 15:45:00 2021-05-09 15:45:00 Outpatient BERT MILES [facility] [id number] [facility] 2021-05-07 00:00:00 2021-05-07 00:00:00 Cassie Case [facility] 1..840.114 350.1.13.10 4.2.7.2.686 [id number] [facility] 2021-05-05 15:45:00 2021-05-05 15:45:00 Outpatient CASSIE WHITE [facility] [id number] [facility] 2021-05-01 00:00:00 2021-05-01 00:00:00 Patient Secure Msg Doctor Unassigned, [place] [facility] 1..840.114 350.1.13.10 4.2.7.2.686 [id number] [facility] 2021-04-30 15:00:00 2021-04-30 15:00:00 Outpatient CASSIE WHITE [facility] [id number] [facility] 2021-04-25 13:00:00 2021-04-25 13:00:00 Outpatient R CHRISTY ROMAN [facility] [id number] [facility] 2021-04-23 11:00:00 2021-04-23 11:00:00 Outpatient R ABA MOSER [facility] [id number] [facility] 2021-04-19 12:00:00 2021-04-19 12:00:00 Outpatient ZAKIA DU [facility] [id number] [facility] Results Test Description Test Time Test Comments Results Result Co mments Source [facility] MOLECULAR [id number] 23:43:19* Test Item Value Reference Range Interpretation Comme nts POCT Molecular Strep (test c ode = 64264-7) Negative Negative Lab Interpretation (test cod e = 25697-1) Normal [facility] MOLECULAR [id number] 15:46:57* Test Item Value Reference Range Interpretation Comme nts POCT Molecular Strep (test c ode = 41120-3) Negative Negative Lab Interpretation (test cod e = 29581-2) Normal [facility] Notes Date/Time Note Provider Source 2023-11-29 10:09:30 7282-00-85U74:09:30F ormatting of this note might be different from the original.Refills sent 12950-9Dhvomeass encounter VywzZY1671-94-70T42:09:36Teleph one encounter NoteTXT1.2.840.560030.1.13.104. 2.7.2.670485|[id number] ble for patient ltvy46925-8OdenELWFCPWYTUMQsghg tted C-CDA narrative [facility] [address] BdiiOfuegkjhwNhbzizzajYZVX19385 43711KSRLVXDVTYOZOMIYSHXHSM9900 -03-18T10:09:361.2.840.051046.1 .72.3.15|1.2.840.620985.1.13.10 4.2.7.2.727879_[id number] [facility] 2023-11-29 08:22:44 2242-69-01I26:22:44F ormatting of this note might be different from the original.Routing to provider. Last sent on 53-99-8242FQF 12-31-4868YYR 57-22-6161Zpwegcxoqewupy signed by Zakia Bhatt MA at 11/29/2023 8:23 AM LCH88309-3Jlbjudjqr encounter SdzxKF8767-66-84X91:23:37Teleph one encounter NoteTXT1.2.840.751675.1.13.104. 2.7.2.917656|[id number] ble for patient rvsk55960-7SmurEUETCCWADGZBjrtt tted C-CDA narrative ppdh218160511Wcedmt M Serrano MA[address] YccpNcpaeddybUtdjnmwvePGJQ55948 00898LQHELSDEIBNFDANNKDPJNE5429 -03-18T08:23:371.2.840.880906.1 .72.3.15|1.2.840.725216.1.13.10 4.2.7.2.727879_[id number] Zakia Bhatt MA [facility] 2023-11-28 19:13:15 8534-80-42U08:13:15F ormatting of this note might be different from the original.Stefan Duran is a 23 year old malePatient calling for refill of busiprone and his inhaler. Please advise. 32681-7Yrqjfwruc encounter GelzMU1963-50-71N74:15:20Teleph one encounter NoteTXT1.2.840.907442.1.13.104. 2.7.2.808959|[id number] ble for patient qdvo30131-7EnbxAXHVFAXMRFWCifkg tted C-CDA narrative wukb745179508Udmzh D [address]TX[address] 30559BTKBTRFPCZPYIEYOVFMYIK4867 -03-17T19:15:201.2.840.959356.1 .72.3.15|1.2.840.077896.1.13.10 4.2.7.2.727879_[id number] December [facility] 2023-05-18 17:54:29 1039-86-26I02:54:29F ormatting of this note might be different from the original.Pt seen by provider and deemed non-emergent. Medical screening completed. Vital signs stable, AO4, no ataxia, gait steady on departure and appears in no distress. 09822-8Hoszfpunv department MekuLC1006-38-36K40:54:40[facility] NoteTXT1.2.840.500653.1.13.104. 2.7.2.853642|[id number] ble for patient urxl83834-1PmuuZN072739271Izayj ah Fief RN[address]TX[address] 11246XIMZIJTKSZEICNOQJOPYJH5911 -09-05T17:54:401.2.840.377627.1 .72.3.15|1.2.840.546084.1.13.10 4.2.7.2.727879_[id number] Jenni Meredith RN [facility] 2023-05-18 15:35:45 4082-48-97F15:35:45F ormatting of this note might be different from the original.Patient here for work note. Missed work on Wednesday. 18437-4Jxzipzbny department Triage ejhwBA4263-93-67L96:36:42[facility] Triage noteTXT1.2.840.065269.1.13.104. 2.7.2.434640|[id number] ble for patient hvkt72368-1Hoxnzejsj department ZxxsAO953499133Mwfmg S Cryer RN[address] 06694HKAAMSDCUDAJUYWVBWRAKQ3793 -09-05T15:36:421.2.840.635142.1 .72.3.15|1.2.840.809091.1.13.10 4.2.7.2.727879_[id number] Anoop Martinez RN [facility]"
[2024-02-13] MEDS ORDERED: GABAPENTIN 300 MG CAP ONE (10:31)
[2024-02-13] MEDS ORDERED: KETOROLAC 30 MG/ML INJ ONE (10:31)
--- NOTE | 2024-02-13 11:35 | RAD REPORT ---
EXAM DESCRIPTION: CT - C Spine Wo Con - 02/13/2024 10:55 am CLINICAL HISTORY: Radiculopathy with neck pain COMPARISON: None TECHNIQUE: Computed axial tomography of the cervical spine were obtained with sagittal and coronal r econstruction images generated and reviewed. All CT scans are performed using dose optimization technique as appropriate and may include automated exposure control or mA/KV adjustment according to patient size. FINDINGS: A cervical fracture is not seen. No dislocation. No high-grade central/foraminal stenosis noted IMPRESSION: A cervical fracture is not seen. No high-grade central/foraminal stenosis noted If the patient continues have symptoms to suggest spinal cord/spinal canal pathology then MRI would b e recommended.
--- NOTE | 2024-02-13 11:44 | RAD REPORT ---
EXAM DESCRIPTION: CTThoracic Spine W/o Cont02/13/2024 10:56 am CLINICAL HISTORY: Radiculopathy with back pain COMPARISON: None TECHNIQUE: Computed axial tomography of thoracic spine was obtained with coronal and sagittal recons truction. All CT scans are performed using dose optimization technique as appropriate and may include automated exposure control or mA/KV adjustment according to patient size. FINDINGS: Steinberg rods united by pedicular screws have been placed from T1-T12. A right posterior screw T3 does not traverse right pedicle and lies lateral to the vertebra as it ext ends anteriorly. Laminectomies have been performed Prominent scoliosis involves the spine. No fracture or dislocation seen. Artifact from the hardware does obscure a large portion of spinal canal and neural foramina. IMPRESSION: Post surgical changes involve the thoracic spine for scoliosis treatment. A right posterior screw T3 does not traverse right pedicle and lies lateral to the vertebra as it ext ends anteriorly. It is uncertain if this is pathologic. This should be compared to prior imaging to d jesus albertoine if this is an acute finding. Artifact from the hardware does obscure a large portion of spinal canal and neural foramina. No gross abnormality seen although evaluation very limited
--- NOTE | 2024-02-13 11:45 | RAD REPORT ---
EXAM DESCRIPTION: CTSpine Lumbar Wo Con02/13/2024 10:57 am CLINICAL HISTORY: Back pain radiculopathy COMPARISON: None TECHNIQUE: Computed axial tomography lumbar spine was obtained with coronal and sagittal reconstruct ion. All CT scans are performed using dose optimization technique as appropriate and may include automated exposure control or mA/KV adjustment according to patient size. FINDINGS: No fracture is seen. No dislocation is noted. Disc bulge suspected L2-3. Epidural lipomatosis is present. Thecal sac appears to measure approximate ly 6 millimeters. Evaluation is limited Mild to moderate disc space narrowing L5-S1. No high-grade central/foraminal stenosis visualized. IMPRESSION: Negative for a lumbar fracture. Evaluation of L2-3 is limited. However there may be a disc bulge with epidural lipomatosis resulting in central spinal stenosis. MRI lumbar spine is recommended for further evaluation
--- NOTE | 2024-02-13 11:47 | RAD REPORT ---
EXAM DESCRIPTION: US - UPPER EXTREMITY VENOUS UNILATE - 02/13/2024 11:21 am CLINICAL HISTORY: Right upper extremity numbness COMPARISON: None. FINDINGS: The right internal jugular, subclavian, brachial, axillary, cephalic, basilic, radial and ulnar veins demonstrate phasic signal. The veins are generally compressible. Doppler demonstrates good flow Grayscale, color and spectral analysis performed on all vessels IMPRESSION: No evidence of thrombus involving the right upper extremity
--- NOTE | 2024-02-13 12:48 | EDPHYS ---
Physician Documentation [facility] Name: Stefan Duran Age: 23 yrs Sex: Male : 2000 Arrival Date: 02/13/2024 Time: 10:11 Bed 8 Private MD: ED Physician Reba Sigala HPI: 02/12 10:27 This 23 yrs old Male presents to ER via Ambulatory with complaints of Back Pain, Arm sb4 Pain. 10:27 patient reports history of scoliosis in which he had surgery about 6 years ago. he sb4 states he has chronic pain in his back but yesterday he started experiencing pain and numbness in his right arm and is concerned the yoselyn in his back is dislodged. states he was told he would need a surgical revision at some point but has not been further evaluated. Historical: - Allergies: 10:14 EGG/POULTRY; ll1 10:14 Nuts; ll1 - PMHx: 10:14 diaphgram hernia; Glaucoma; scoliosis; ll1 - PSHx: 10:14 back SX with rods; ll1 - Immunization history:: Adult Immunizations up to date. - Infectious Disease History:: Denies. - Social history:: Smoking status: Patient denies any tobacco usage or history of. ROS: 10:27 Constitutional: Negative for fever, chills, and weight loss, sb4 10:27 MS/extremity: Positive for pain, tingling, of the right arm and back, 10:27 All other systems are negative, Exam: 10:27 Constitutional: This is a well developed, well nourished patient who is awake, alert, sb4 and in no acute distress. Head/Face: Normocephalic, atraumatic. Eyes: Extra-ocular motions intact. Periorbital areas with no swelling, redness, or edema. ENT: Mucous membranes moist. Skin: Warm, dry with normal turgor. Normal color with no rashes, no lesions, and no evidence of cellulitis. MS/ Extremity: Pulses equal, no cyanosis. Neurovascular intact. Full, normal range of motion. Neuro: Awake and alert, GCS 15, oriented to person, place, time, and situation. Motor strength 5/5 in all extremities. Sensory grossly intact. Vital Signs: 10:20 BP 128 / 81; Pulse 66; Resp 17; Temp 97.7; Pulse Ox 98% ; Height 5 ft. 4 in. ; Pain ll1 6/10; 13:44 BP 125 / 85; Pulse 55; Resp 16; Pulse Ox 99% on R/A; me1 10:20 Pain Scale: Adult ll1 MDM: 10:15 Patient medically screened. sb4 12:47 Data reviewed: vital signs, nurses notes, radiologic studies, and as a result, I will sb4 discharge patient. Counseling: I had a detailed discussion with the patient and/or guardian regarding the historical points, exam findings, and any diagnostic results supporting the discharge/admit diagnosis, lab results, radiology results, the need for outpatient follow up, spine, to return to the emergency department if symptoms worsen or persist or if there are any questions or concerns that arise at home. 02/12 10:26 Order name: CT C Spine; Complete Time: 11:37 sb4 02/12 10:26 Order name: CT Thoracic Spine Wo Cont; Complete Time: 11:46 sb4 02/12 10:26 Order name: CT Lumbar Spine Wo Con; Complete Time: 11:46 sb4 02/12 10:37 Order name: UPPER EXTREMITY VENOUS UNILATE; Complete Time: 11:47 EDMS Administered Medications: 10:37 Drug: Gabapentin PO 300 mg PO once Route: PO; hb 13:46 Follow up: Response: No adverse reaction; Pain is decreased me1 10:37 Drug: Ketorolac IM 30 mg IM once Route: IM; Site: right deltoid; hb 13:46 Follow up: Response: No adverse reaction; Pain is decreased me1 Disposition: 19:07 I reviewed the patient's care provided by the Advanced Practice Provider and agree with sd2 the diagnosis and treatment plan. Disposition Summary: 02/13/24 12:47 Discharge Ordered Notes: Location: Home sb4 Problem: new sb4 Symptoms: have improved sb4 Condition: Stable sb4 Diagnosis - Radiculopathy, cervicothoracic region sb4 Followup: sb4 - With: Private Physician - When: 1 week - Reason: Further diagnostic work-up Discharge Instructions: - Discharge Summary Sheet sb4 - Scoliosis sb4 Forms: - Patient Portal Instructions sb4 - Leadership Thank You Letter sb4 Prescriptions: - gabapentin 100 mg Oral capsule - take 1 capsule ORAL route every 8 hours; 30 capsule; Refills: 0, Product sb4 Selection Permitted - Ibuprofen 800 mg Oral Tablet - take 1 tablet ORAL route every 8 hours As needed take with food; 30 tablet; sb4 Refills: 0, Product Selection Permitted Signatures: Dispatcher [employer] EDMS Jamia Herring, RN RN Kev Carter RN RN ll1 Reba Sigala MD MD sd2 Nata Colvin, PAJoseC PA-C sb4 Fransisca Evans RN me1 Corrections: (The following items were deleted from the chart) 10:26 10:26 Thoracic Spine WO Cont+CT.RAD.BRZ ordered. EDMS EDMS 10:26 10:26 Spine Lumbar Wo Con+CT.RAD.BRZ ordered. EDMS EDMS 10:26 10:26 Extremity Venous Uni Ltd+US.RAD.BRZ ordered. EDMS EDMS
--- NOTE | 2024-02-13 12:48 | ER ---
Nurse's Notes [facility] Name: Stefan Duran Age: 23 yrs Sex: Male : 2000 Arrival Date: 02/13/2024 Time: 10:11 Bed 8 Private MD: Diagnosis: Radiculopathy, cervicothoracic region Presentation: 02/12 10:20 Chief complaint: Patient states: Chronic back pain. RUE cramping/pain started this ll1 morning. Coronavirus screen: Client denies travel out of the [place] in the last 14 days. At this time, the client does not indicate any symptoms associated with coronavirus-19. Ebola Screen: Patient denies travel to an Ebola-affected area in the 21 days before illness onset. Initial Sepsis Screen: Does the patient meet any 2 criteria? No. Patient's initial sepsis screen is negative. Does the patient have a suspected source of infection? No. Patient's initial sepsis screen is negative. Risk Assessment: Do you want to hurt yourself or someone else? Patient reports no desire to harm self or others. Onset of symptoms was February 13, 2024. 10:20 Method Of Arrival: Ambulatory ll1 10:20 Acuity: ABHINAV 3 ll1 Triage Assessment: 10:22 General: Appears uncomfortable, Behavior is calm, cooperative, appropriate for age. ll1 Pain: Complains of pain in back and right arm Pain radiates to left arm Pain currently is 6 out of 10 on a pain scale. Quality of pain is described as aching. Musculoskeletal: Circulation, motion, and sensation intact. Capillary refill < 3 seconds, Reports pain in back and right arm. Historical: - Allergies: 10:14 EGG/POULTRY; ll1 10:14 Nuts; ll1 - PMHx: 10:14 diaphgram hernia; Glaucoma; scoliosis; ll1 - PSHx: 10:14 back SX with rods; ll1 - Immunization history:: Adult Immunizations up to date. - Infectious Disease History:: Denies. - Social history:: Smoking status: Patient denies any tobacco usage or history of. Screenin:37 [facility] ED Fall Risk Assessment (Adult) History of falling in the last 3 months, hb including since admission No falls in past 3 months (0 pts) Confusion or Disorientation No (0 pts) Intoxicated or Sedated No (0 pts) Impaired Gait No (0 pts) Mobility Assist Device Used No (0 pt) Altered Elimination No (0 pt) Score/Fall Risk Level 0 - 2 = Low Risk Oriented to surroundings, Maintained a safe environment, Educated pt \T\ family on fall prevention, incl call for assistance when getting out of bed, Assessed \T\ reinforced patient's understanding of fall precautions. 10:40 Abuse screen: Denies threats or abuse. Denies injuries from another. Nutritional hb screening: No deficits noted. Tuberculosis screening: No symptoms or risk factors identified. Assessment: 10:37 General: Appears in no apparent distress. uncomfortable, Behavior is calm, cooperative. hb Pain: Pain currently is 5 out of 10 on a pain scale. Neuro: Level of Consciousness is awake, alert, obeys commands, Oriented to person, place, time, situation. Cardiovascular: Patient's skin is warm and dry. Rhythm is regular. Respiratory: Respiratory effort is even, unlabored, Respiratory pattern is regular, symmetrical. GI: No signs and/or symptoms were reported involving the gastrointestinal system. : No signs and/or symptoms were reported regarding the genitourinary system. EENT: No signs and/or symptoms were reported regarding the EENT system. Derm: Skin is pink, warm \T\ dry. Musculoskeletal: Reports Pain is 5 out of 10 on a pain scale. calderon in back and rt arm. Vital Signs: 10:20 BP 128 / 81; Pulse 66; Resp 17; Temp 97.7; Pulse Ox 98% ; Height 5 ft. 4 in. ; Pain ll1 6/10; 13:44 BP 125 / 85; Pulse 55; Resp 16; Pulse Ox 99% on R/A; me1 10:20 Pain Scale: Adult ll1 ED Course: 10:14 Patient arrived in ED. ts1 10:14 Arm band placed on Patient placed in an exam room, on a stretcher. ll1 10:15 Nata Colvin PA-C is PHCP. sb4 10:15 Reba Sigala MD is Attending Physician. sb4 10:21 Triage completed. ll1 10:37 Jamia Herring, RN is Primary Nurse. hb 10:40 Patient has correct armband on for positive identification. Provided Education on: hb tests, result times. 10:[address] hb 10:57 CT C Spine In Process Unspecified. EDMS 10:57 CT Thoracic Spine Wo Cont In Process Unspecified. EDMS 10:58 CT Lumbar Spine Wo Con In Process Unspecified. EDMS 11:22 UPPER EXTREMITY VENOUS UNILATE In Process Unspecified. EDMS 13:45 No provider procedures requiring assistance completed. IV discontinued, intact, me1 bleeding controlled, No redness/swelling at site. Pressure dressing applied. Administered Medications: 10:37 Drug: Gabapentin PO 300 mg PO once Route: PO; hb 13:46 Follow up: Response: No adverse reaction; Pain is decreased me1 10:37 Drug: Ketorolac IM 30 mg IM once Route: IM; Site: right deltoid; hb 13:46 Follow up: Response: No adverse reaction; Pain is decreased me1 Medication: 10:37 VIS not applicable for this client. hb Outcome: 12:47 Discharge ordered by MD. sb4 13:45 Discharged to home ambulatory, with significant other, me1 13:45 Condition: stable 13:45 Discharge instructions given to patient, significant other, Instructed on discharge instructions, follow up and referral plans. medication usage, Demonstrated understanding of instructions, follow-up care, medications, Prescriptions given X 2, 13:46 Patient left the ED. me1 Signatures: Dispatcher [employer] EDJamia Holden RN TULIO Kev Carter RN RN ll1 Nata Colvin, PA-C PA-C sb4 Keren Cook, LEISA PAS ts1 Fransisca Evans, TULIO RN me1 Corrections: (The following items were deleted from the chart) 10:30 10:20 Acuity: ABHINAV 4 ll1 ll1 10:40 10:37 Musculoskeletal: Reports Pain is 5 out of 10 on a pain scale. calderon in back and BLE hb hb
[2024-02-13 14:02] VITALS: BP 125/85; TEMP 97.7; O2SAT 99
== END 2024-02-13 13:46 | disposition home or self-care (01) ==
LOC: ER 10:11
DX: M54.13 Radiculopathy, cervicothoracic region (principal); M41.9 Scoliosis, unspecified; Z91.012 Allergy to eggs
CPT/HCPCS: 72125; 72128; 72131; 93971; 96372; 99284

== ENCOUNTER 2024-04-27 10:08 | Emergency (ER) | payer SELFPAY ==
[2024-04-27 10:55] LABS: Absolute Basophils 0.1 K/uL (0-0.5); Absolute Eosinophils 0.1 K/uL (0-0.5); Absolute Lymphocytes (CBC) 1.1 K/uL (0.7-4.9); Absolute Monocytes 1.2 K/uL (0.1-1.3); Absolute Neutrophil 6.3 K/uL (1.8-8.0); Basophils % 0.7 % (0-1.3); Eosinophils % 1.5 % (0-4.4); Hematocrit 44.3 % (39.6-49.0); Hemoglobin 14.9 g/dL (13.6-17.9); Lymphocytes % 12.3 % (15.3-44.8); MCH 33.6 pg (27.0-35.0); MCHC 33.6 g/dL (32.0-36.0); MCV 99.8 fL (80-100); Monocytes % 14.1 % (3.3-12.3); Neutrophils % 71.4 % (41.7-73.7); Platelets 300 thou/uL (152-406); RBC Red Blood Cell Count 4.44 M/uL (4.33-5.43); Red Cell Distribution Width 13.2 % (12.1-15.2)
[2024-04-27 10:59] LABS: Protime INR 1.07
[2024-04-27 11:13] LABS: Albumin 3.8 g/dL (3.4-5.0); Albumin/Globulin Ratio 1.1 (1.1-1.8); Anion Gap 5.7 mEq/L (5.0-15.0); Bilirubin Total 0.9 mg/dL (0.2-1.0); Globulin 3.5 g/dL (2.3-3.5); Potassium 3.7 mEq/L (3.5-5.1); Protein, Total 7.3 g/dL (6.4-8.2)
--- NOTE | 2024-04-27 11:23 | RAD REPORT ---
EXAM DESCRIPTION: CT - Abdomen Pelvis W Contrast - 04/27/2024 10:56 am CLINICAL HISTORY: Abdominal pain. Left upper quadrant pain COMPARISON: none. TECHNIQUE: Computed axial tomography of the abdomen pelvis was obtained. 100 cc Isovue-300 was admin istered intravenously. Oral contrast was not requested which limits evaluation of bowel and appendix All CT scans are performed using dose optimization technique as appropriate and may include automated exposure control or mA/KV adjustment according to patient size. FINDINGS: Prominent scoliosis Spleen is absent. Stenosis is present. Liver, pancreas, and adrenals unremarkable Tiny nonobstructing bilateral renal calculi No evidence of diverticulitis. No obstruction Postsurgical changes involve the spine IMPRESSION: No acute abnormality is displayed.
--- NOTE | 2024-04-27 11:25 | EDPHYS ---
Physician Documentation [facility] Name: Stefan Duran Age: 23 yrs Sex: Male : 2000 Arrival Date: 04/27/2024 Time: 10:08 Bed 20 Private MD: ED Physician Loco Kelley HPI: 04/27 10:38 This 23 yrs old Male presents to ER via Ambulatory with complaints of left chest/abd sp3 ecchymosis and pain. 10:38 23-year-old male with a history of diaphragmatic hernia as a child now presents to the sp3 ED with chief complaint left-sided chest and abdomen pain coupled with contusions. He denies any direct injury and states he woke up with it this way. Ecchymoses and swelling is directly over the surgical scar from his prior repair. He denies any bleeding anywhere else, contusions anywhere else, direct injury, headache, fever, shortness of breath, lower abdominal pain, syncope, near syncope, back pain, or any other signs or symptoms on ROS at this time.. Historical: - Allergies: 10:20 EGG/POULTRY; iw 10:20 Nuts; iw - PMHx: 10:20 diaphgram hernia; Glaucoma; scoliosis; iw - PSHx: 10:20 back SX with rods; iw - Immunization history:: Adult Immunizations not up to date. - Infectious Disease History:: Denies. - Social history:: Smoking status: Reported history of juuling and/or vaping. ROS: 10:40 Constitutional: Negative for fever, chills, and weight loss, Eyes: Negative for injury, sp3 pain, redness, and discharge, ENT: Negative for injury, pain, and discharge, Neck: Negative for injury, pain, and swelling, Cardiovascular: Negative for chest pain, palpitations, and edema, Respiratory: Negative for shortness of breath, cough, wheezing, and pleuritic chest pain, Back: Negative for injury and pain, MS/Extremity: Negative for injury and deformity, Skin: Negative for injury, rash, and discoloration, Neuro: Negative for headache, weakness, numbness, tingling, and seizure, Psych: Negative for depression, anxiety, suicide ideation, homicidal ideation, and hallucinations, Allergy/Immunology: Negative for hives, rash, and allergies, Endocrine: Negative for neck swelling, polydipsia, polyuria, polyphagia, and marked weight changes, Hematologic/Lymphatic: Negative for swollen nodes, abnormal bleeding, and unusual bruising, 10:40 All other systems are negative, Exam: 10:40 Constitutional: This is a well developed, well nourished patient who is awake, alert, sp3 and in no acute distress. Head/Face: Normocephalic, atraumatic. Eyes: Pupils equal round and reactive to light, extra-ocular motions intact. Lids and lashes normal. Conjunctiva and sclera are non-icteric and not injected. Cornea within normal limits. Periorbital areas with no swelling, redness, or edema. Neck: Trachea midline, no thyromegaly or masses palpated, and no cervical lymphadenopathy. Supple, full range of motion without nuchal rigidity, or vertebral point tenderness. No Meningismus. Cardiovascular: Regular rate and rhythm with a normal S1 and S2. No gallops, murmurs, or rubs. Normal PMI, no JVD. No pulse deficits. Respiratory: Lungs have equal breath sounds bilaterally, clear to auscultation and percussion. No rales, rhonchi or wheezes noted. No increased work of breathing, no retractions or nasal flaring. Back: No spinal tenderness. No costovertebral tenderness. Full range of motion. MS/ Extremity: Pulses equal, no cyanosis. Neurovascular intact. Full, normal range of motion. Neuro: Awake and alert, GCS 15, oriented to person, place, time, and situation. Cranial nerves II-XII grossly intact. Motor strength 5/5 in all extremities. Sensory grossly intact. Cerebellar exam normal. Normal gait. Psych: Awake, alert, with orientation to person, place and time. Behavior, mood, and affect are within normal limits. 10:40 Chest/axilla: Ecchymoses over left upper quadrant surgical scar approximately 6 cm in length and 1.5 cm in width. Mild pain to palpation. Mild pain to the left upper quadrant. No peritoneal signs, rebound or guarding noted. Cardiovascular exam is normal.. Vital Signs: 10:18 BP 113 / 66; Pulse 71; Resp 16; Temp 98.4; Pulse Ox 99% ; Weight 58.97 kg; Pain 8/10; iw 10:27 BP 112 / 68; Pulse 82; Resp 16; Temp 98.1; Pulse Ox 100% ; Weight 54.43 kg; Height 5 ar6 ft. 4 in. ; Pain 4/10; 10:27 Body Mass Index 20.60 (54.43 kg, 162.56 cm) ar6 10:18 Pain Scale: Adult iw 10:27 Pain Scale: Adult ar6 MDM: 10:32 Patient medically screened. sp3 10:41 Data reviewed: vital signs, nurses notes, lab test result(s), radiologic studies. ED sp3 course: 23-year-old male with left upper quadrant abdominal pain, ecchymoses over surgical scar from prior diaphragmatic hernia repair. Differential diagnosis includes surface contusion/injury versus intra-abdominal or abdominal wall process. Workup will include laboratory values including coagulation profile and CT scan of the abdomen to further elucidate the process. Disposition pending workup and patient course.. 11:24 ED course: Full workup negative including CT scan. Contusion most likely surface. Will sp3 safely discharge patient home at this time.. 04/27 10:37 Order name: CBC with Diff; Complete Time: 11:23 sp3 04/27 10:37 Order name: CMP; Complete Time: 11:23 sp3 04/27 10:37 Order name: Lipase; Complete Time: 11:23 sp3 04/27 10:37 Order name: PT-INR; Complete Time: 11:23 sp3 04/27 10:37 Order name: CT Abd/Pelvis - IV Contrast Only; Complete Time: 11:23 sp3 04/27 10:37 Order name: IV Saline Lock; Complete Time: 10:47 sp3 04/27 10:37 Order name: Labs collected and sent; Complete Time: 10:47 sp3 Administered Medications: No medications were administered Disposition Summary: 04/27/24 11:25 Discharge Ordered Notes: Location: Home sp3 Condition: Stable sp3 Diagnosis - Ecchymoses left chest sp3 Followup: sp3 - With: Private Physician - When: As needed - Reason: Continuance of care Discharge Instructions: - Discharge Summary Sheet sp3 - Chest Contusion, Adult sp3 Forms: - Medication Reconciliation Form sp3 - Antibiotic Education sp3 - Prescription Opioid Use sp3 - Patient Portal Instructions sp3 - Leadership Thank You Letter sp3 Signatures: Dispatcher [employer] Denise Higginbotham RN RN Loco Braxton MD MD sp3 Corrections: (The following items were deleted from the chart) 10:38 10:38 CBC+H.LAB.BRZ ordered. EDMS EDMS 10:38 10:38 COMPREHENSIVE METABOLIC PANEL+C.LAB.BRZ ordered. EDMS EDMS 10:38 10:38 LIPASE+C.LAB.BRZ ordered. EDMS EDMS 10:38 10:38 PROTIME (+INR)+COAG.LAB.BRZ ordered. EDMS EDMS
--- NOTE | 2024-04-27 11:25 | ER ---
Nurse's Notes [facility] Name: Stefan Duran Age: 23 yrs Sex: Male : 2000 Arrival Date: 04/27/2024 Time: 10:08 Bed 20 Private MD: Diagnosis: Ecchymoses left chest Presentation: 04/27 10:18 Chief complaint: Patient states: has a diaphragm hernia on left side that is hurting iw and it has turned purple, pain started this morning. Coronavirus screen: At this time, the client does not indicate any symptoms associated with coronavirus-19. Ebola Screen: No symptoms or risks identified at this time. Initial Sepsis Screen: Does the patient meet any 2 criteria? No. Patient's initial sepsis screen is negative. Does the patient have a suspected source of infection? No. Patient's initial sepsis screen is negative. Risk Assessment: Do you want to hurt yourself or someone else? Patient reports no desire to harm self or others. Onset of symptoms was April 27, 2024. 10:18 Method Of Arrival: Ambulatory iw 10:18 Acuity: ABHINAV 3 iw Historical: - Allergies: 10:20 EGG/POULTRY; iw 10:20 Nuts; iw - PMHx: 10:20 diaphgram hernia; Glaucoma; scoliosis; iw - PSHx: 10:20 back SX with rods; iw - Immunization history:: Adult Immunizations not up to date. - Infectious Disease History:: Denies. - Social history:: Smoking status: Reported history of juuling and/or vaping. Screenin:27 [facility] ED Fall Risk Assessment (Adult) History of falling in the last 3 months, ar6 including since admission No falls in past 3 months (0 pts) Confusion or Disorientation No (0 pts) Intoxicated or Sedated No (0 pts) Impaired Gait No (0 pts) Mobility Assist Device Used No (0 pt) Altered Elimination No (0 pt) Score/Fall Risk Level 0 - 2 = Low Risk. Abuse screen: Denies threats or abuse. Denies injuries from another. Nutritional screening: No deficits noted. Tuberculosis screening: No symptoms or risk factors identified. Assessment: 10:27 General: Appears in no apparent distress. Behavior is calm, cooperative, appropriate ar6 for age. Pain: Complains of pain in abdomen Pain radiates to abdomen Pain currently is 4 out of 10 on a pain scale. Quality of pain is described as burning, tender, Pain began 2 hours ago. Neuro: Level of Consciousness is awake, alert, obeys commands, Oriented to person, place, time, situation. Cardiovascular: Capillary refill < 3 seconds. Respiratory: Airway is patent. GI: Abdomen is flat, non-distended, discolored, LUQ pain with redness-pink color to skin; pt reports hx of sx in the area Bowel sounds present X 4 quads. : No signs and/or symptoms were reported regarding the genitourinary system. EENT: No signs and/or symptoms were reported regarding the EENT system. Derm: Skin is intact, is healthy with good turgor, Skin is dry, Skin is pink, warm \T\ dry. LUQ ith redness-pinkish discoloration Skin temperature is warm Rash noted that is red, on abdomen. Musculoskeletal: No signs and/or symptoms reported regarding the musculoskeletal system. Injury Description: Bruise sustained to abdomen. 11:16 Reassessment: No changes from previously documented assessment. ar6 Vital Signs: 10:18 BP 113 / 66; Pulse 71; Resp 16; Temp 98.4; Pulse Ox 99% ; Weight 58.97 kg; Pain 8/10; iw 10:27 BP 112 / 68; Pulse 82; Resp 16; Temp 98.1; Pulse Ox 100% ; Weight 54.43 kg; Height 5 ar6 ft. 4 in. ; Pain 4/10; 10:27 Body Mass Index 20.60 (54.43 kg, 162.56 cm) ar6 10:18 Pain Scale: Adult iw 10:27 Pain Scale: Adult ar6 ED Course: 10:10 Patient arrived in ED. ra3 10:11 Loco Kelley MD is Attending Physician. sp3 10:20 Triage completed. iw 10:21 Arm band placed on. iw 10:27 Kathryn Martinez, RN is Primary Nurse. ar6 10:27 Patient has correct armband on for positive identification. Bed in low position. Call ar6 light in reach. Side rails up X 1. Pulse ox on. NIBP on. Door closed. Noise minimized. Visitors limited. Lights dimmed. Verbal reassurance given. 10:47 Inserted saline lock: 20 gauge in left antecubital area, using aseptic technique. Blood ar6 collected. Flushed with 10 mL NS. 10:58 CT Abd/Pelvis - IV Contrast Only In Process Unspecified. EDMS 11:34 No provider procedures requiring assistance completed. IV discontinued, intact, mb9 bleeding controlled, No redness/swelling at site. Pressure dressing applied. Administered Medications: No medications were administered Medication: 11:34 VIS not applicable for this client. [email or web address] Outcome: 11:25 Discharge ordered by MD. lund 11:34 Discharged to home ambulatory, with family, richard 11:34 Condition: stable 11:34 Discharge instructions given to patient, Instructed on discharge instructions, follow up and referral plans. Demonstrated understanding of instructions, follow-up care, 11:34 Patient left the ED. [email or web address] Signatures: Dispatcher [employer] Denise Higginbotham, RN RN Loco Braxton MD MD sp3 Kiya, Sheila Martino RN RN mb9 Mylene Vences Amber RN RN ar6
[2024-04-27 11:55] VITALS: BP 113/66; TEMP 98.4; O2SAT 99
--- OUTSIDE RECORDS SUMMARY | 2024-04-28 09:29 | XMS REPORT | Continuity of Care Document ---
Author Name Unknown Address [address] [facility] [address] [place] [address] [facility] thconnect Address [address] [facility] [address] [place] [address] Care Team Providers Care Buffer Nickel Name Role Phone Godfrey Fuentes Primary Care Physician + [phone] JM HOLLAND Attending Clinician Unavailable GODFREY MIMS Attending Clinician Unavailable Doctor Unassigned, [place] Attending Clinician U Godfrey Ryan Attending Clinician [phone] JASPAL RICCI Attending Clinician Unavailable Jaspal Moeller Attending Clinician [phone] UNKNOWN, ATTENDING Attending Clinician Unavailab CASSIE Hinojosa Attending Clinician UnaJUANITA Mendez Attending Clinician Unavailable Juanita Mcclendon PA-C Attending Clinician [phone] Unknown, Attending Attending Clinician Unavailab REEMA Rivera Attending Clinician Unavailable Reema Teixeira MD Attending Clinician [phone] Consuelo Lee LMSW Attending Clinician [phone] 2, [facility] Attending Clinician Unavailable [facility] Attending Clinician Un available CHRISTINA ESTRELLA Attending Clinician Christina Shah MD Attending Clinician [phone] Misael Thornton RN Attending Clinician UnavailRAGHAV Bundy Attending Clinician Unavailable Raghav Parker MD Attending Clinician [phone] BETH LOWERY Attending Clinician Agustina vailable Beth Gross Attending Clinician FRANK ANDRES Attending Clinician Unavailable Frank Connors Attending Clinician [phone] King JET MD, James C Attending Clinician [phone] CASSIE MCCLELLAND III Attending Clinician UnavailHILL Ortiz Attending Clinician Unavailab Hill Farmer Attending Clinician [phone] RADIOLOGY Attending Clinician Unavailable Radiology Attending Clinician Unavailable 1, [facility] Attending Clinician Unavailable Dereck Hernandez MD Attending Clinician [phone] Lab, Ang - Db Attending Clinician Unavailable Cassie Joshi MD Attending Clinician + [phone] KAYE WU Attending Clinician Unavailreuben lopez Only, [facility] Pob2 Test Attending Clinician Unavaila Kaye Gregory MD Attending Clinician [phone] Bert Toscano DO Attending Clinician BERT TOSCANO Attending Clinician Unavail able CHRISTY ROMAN Attending Clinician Unavailable ABA MOSER Attending Clinician UnavailBETH Barron Admitting Clinician Agustina vailable Payers Payer Name Policy Type Policy Number Effective Date Expirati on Date Source [facility]LY [facility] [id number] 2021 00:00:00 [employer] MEDICAID [id number] 2018 00:00:00 Problems Condition Name Condition Details Condition Category Status Onset Date Resolution Date Last Treatment Date Treating Clinician Comments Source No known active problems No known active problems Disease [facility] Allergies, Adverse Reactions, Alerts Allergy Name Allergy Type Status Severity Reaction(s) Onset Date Inactive Date Treating Clinician Comments Source EGG DRUG INGREDI Active High Hives 10-13 00:00: 00 [facility] PEANUT DRUG INGREDI Active High Anaphylaxis 10-13 00:00: 00 [facility] Egg Propensi ty to adverse reaction s Active Hives 10-13 00:00: 00 [facility] Peanut Propensi ty to adverse reaction s Active Anaphylaxis 10-13 00:00: 00 [facility] NO KNOWN ALLERGIE S Drug Class Active [facility] Social History Social Habit Start Date Stop Date Quantity Comments Source History of tobacco use Cigarette Smoker [facility] Alcohol intake 2023-03-19 00:00:00 2023-03-19 00:00:00 Ex-drinker (finding) [facility] Alcoholic beverage intake 2023-03-19 00:00:00 2023-03-19 00:00:00 Ex-drinker (finding) [facility] History of Social function 2023-02-22 00:00:00 2023-02-22 00:00:00 [facility] Cigarettes smoked current (pack per day) - Reported 2023-02-04 00:00:00 2023-02-04 00:00:00 [facility] Tobacco use and exposure 2023-02-04 00:00:00 2023-02-04 00:00:00 Smokeless tobacco non-user [facility] Exposure to SARS-CoV-2 (event) 2023-01-24 00:00:00 2023-02-03 16:14:00 Not sure [facility] Sex assigned at 2002 00:00:00 2000 00:00:00 [facility] Smoking Status Start Date Stop Date Source Smokes tobacco daily 2023-02-04 00:00:00 [facility] Medications Ordered Medication Name Filled Medication Name Start Date Stop Date Current Medication? Ordering Clinician Indication Dosage Frequency Signature (SIG) Comments Components Source busPIRone 5 mg tablet 11-28 00:00: 00 Yes [id number] 5mg Take 1 tablet by mouth 2 (two) times daily as needed for Other (anxiety). [facility] albuterol 90 mcg/actuati on inhaler 11-28 00:00: 00 Yes [id number] 2{puff} Inhale 2 Puffs every 6 (six) hours as needed for Wheezing or Shortness of Breath. [facility] methylPREDN ISolone (MEDROL, MARTIN,) 4 mg tablets 03-19 00:00: 00 Yes [id number] Take by mouth SEE-INSTRU CTIONS. follow package directions [facility] amoxicillin -clavulanat e (AUGMENTIN) 875-125 mg per tablet 03-19 00:00: 00 03-30 04:59 :00 No [id number] 1{tbl} Take 1 tablet by mouth in the morning and 1 tablet in the evening. Do all this for 10 days. [facility] busPIRone 5 mg tablet 02-22 00:00: 00 11-28 00:00 :00 No [id number] 5mg Take 1 tablet by mouth 2 (two) times daily as needed for Other (anxiety). [facility] nicotine 14 mg/24 hr patch 02-22 00:00: 00 03-25 04:59 :00 No [id number] 1{patch } Apply 1 Patch to area(s) every 24 (twenty-fo ur) hours for 30 days. [facility] nicotine 7 mg/24 hr patch 02-22 00:00: 00 03-25 04:59 :00 No [id number] 1{patch } Apply 1 Patch to area(s) every 24 (twenty-fo ur) hours for 30 days. [facility] nicotine 21 mg/24 hr patch 02-22 00:00: 00 03-25 04:59 :00 No [id number] 1{patch } Apply 1 Patch to area(s) every 24 (twenty-fo ur) hours for 30 days. [facility] buPROPion SR (WELLBUTRIN SR) 150 mg SR tablet 02-05 00:00: 00 02-22 00:00 :00 No [id number] 150mg Take 1 tablet by mouth in the morning and 1 tablet in the evening. Do all this for 90 days. [facility] albuterol 90 mcg/actuati on inhaler 02-04 00:00: 00 11-28 00:00 :00 No [id number] 2{puff} Inhale 2 Puffs every 6 (six) hours as needed for Wheezing or Shortness of Breath. [facility] omeprazole 40 mg capsule 01-14 00:00: 00 Yes TAKE 1 CAPSULE BY MOUTH ONCE DAILY, DO NOT CRUSH OR CHEW [facility] azelastine 137 mcg (0.1 %) nasal spray 10-26 00:00: 00 02-04 00:00 :00 No [id number] 1{spray } Use 1 Brent in each nostril in the morning and 1 Brent in the evening. Use in each nostril as directed [facility] fluticasone propionate 50 mcg/actuati on nasal spray 10-26 00:00: 00 02-04 00:00 :00 No [id number] 1{spray } Use 1 Brent in each nostril in the morning. [facility] ibuprofen 600 mg tablet 10-26 00:00: 00 02-04 00:00 :00 No [id number] 600mg Take 1 tablet by mouth every 6 (six) hours as needed for Pain (scale 4-6) or Pain (scale 1-3). [facility] maalox/diph enhydrAMINE :lidocaine2 % viscous 1:1:1 Susp suspension 10-26 00:00: 00 02-04 00:00 :00 No [id number] 5mL Take 5 mL by mouth 3 (three) times daily as needed (gargle and spit). [facility] meloxicam 15 mg tablet 10-13 00:00: 00 11-13 05:59 :00 No [id number] 15mg Take 1 tablet by mouth in the morning for 30 days. [facility] methocarbam oL 500 mg tablet 10-13 00:00: 00 11-13 05:59 :00 No [id number] 500mg Take 1 tablet by mouth every evening for 30 days. [facility] pantoprazol e 40 mg EC tablet 1-04 00:00: 00 02-04 00:00 :00 No [id number] 40mg Take 1 tablet by mouth in the morning and 1 tablet in the evening. [facility] ondansetron 4 mg tablet 1- 00:00: 00 02-04 00:00 :00 No [id number] 4mg Take 1 tablet by mouth every 8 (eight) hours as needed for Nausea and Vomiting (N/V). [facility] sulfamethox azole-trime thoprim (BACTRIM DS) 800-160 mg per tablet 2021-09- 00:00: 00 08-03 05:59 :00 No [id number] 1{tbl} Take 1 tablet by mouth in the morning and 1 tablet in the evening. Do all this for 7 days. [facility] varenicline 1 mg tablet 05-05 00:00: 00 06-08 00:00 :00 No [id number] 1mg Take 1 tablet by mouth 2 (two) times daily. [facility] terbinafine HCL 250 mg tablet 05-05 00:00: 00 06-08 00:00 :00 No [id number] 250mg Take 1 tablet by mouth daily. [facility] busPIRone 5 mg tablet 18 00:00: 00 02-22 00:00 :00 No [id number] 5mg Take 1 tablet by mouth 3 (three) times daily. [facility] varenicline (CHANTIX STARTING MONTH BOX) 0.5 mg (11)- 1 mg (42) tablet 18 00:00: 00 06-08 00:00 :00 No [id number] Take one 0.5mg tab by mouth once daily for 3 days, then one 0.5mg tab twice daily for 4 days, then one 1mg tab twice daily. [facility] busPIRone 5 mg tablet 7 00:00: 00 06-08 00:00 :00 No 5mg Take 5 mg by mouth. [facility] omeprazole 20 mg capsule 1-04 00:00: 00 06-08 00:00 :00 No 1{capsu le} Take 1 capsule by mouth. [facility] Immunizations Ordered Immunization Name Filled Immunization Name Date Status Comments Source Meningococcal Polysaccharide (groups A, C, Y and W-135) conjugate vaccine (MCV4P) 2021-04-30 00:00:00 Completed [facility] Meningococcal Polysaccharide (groups A, C, Y and W-135) conjugate vaccine (MCV4P) 2021-04-30 00:00:00 Completed [facility] Meningococcal Polysaccharide (groups A, C, Y and W-135) conjugate vaccine (MCV4P) 2021-04-30 00:00:00 Completed [facility] Meningococcal Polysaccharide (groups A, C, Y and W-135) conjugate vaccine (MCV4P) 2021-04-30 00:00:00 Completed [facility] Meningococcal Polysaccharide (groups A, C, Y and W-135) conjugate vaccine (MCV4P) 2021-04-30 00:00:00 Completed [facility] Meningococcal Polysaccharide (groups A, C, Y and W-135) conjugate vaccine (MCV4P) 2021-04-30 00:00:00 Completed [facility] Meningococcal Polysaccharide (groups A, C, Y and W-135) conjugate vaccine (MCV4P) 2021-04-30 00:00:00 Completed [facility] Meningococcal Polysaccharide (groups A, C, Y and W-135) conjugate vaccine (MCV4P) 2021-04-30 00:00:00 Completed [facility] Meningococcal Polysaccharide (groups A, C, Y and W-135) conjugate vaccine (MCV4P) 2021-04-30 00:00:00 Completed [facility] Meningococcal Polysaccharide (groups A, C, Y and W-135) conjugate vaccine (MCV4P) 2021-04-30 00:00:00 Completed [facility] Meningococcal Polysaccharide (groups A, C, Y and W-135) conjugate vaccine (MCV4P) 2021-04-30 00:00:00 Completed [facility] Meningococcal Polysaccharide (groups A, C, Y and W-135) conjugate vaccine (MCV4P) 2021-04-30 00:00:00 Completed [facility] Meningococcal Polysaccharide (groups A, C, Y and W-135) conjugate vaccine (MCV4P) 2021-04-30 00:00:00 Completed [facility] Meningococcal Polysaccharide (groups A, C, Y and W-135) conjugate vaccine (MCV4P) 2021-04-30 00:00:00 Completed [facility] Meningococcal Polysaccharide (groups A, C, Y and W-135) conjugate vaccine (MCV4P) 2021-04-30 00:00:00 Completed [facility] Meningococcal Polysaccharide (groups A, C, Y and W-135) conjugate vaccine (MCV4P) 2021-04-30 00:00:00 Completed [facility] Meningococcal Polysaccharide (groups A, C, Y and W-135) conjugate vaccine (MCV4P) 2021-04-30 00:00:00 Completed [facility] Meningococcal Polysaccharide (groups A, C, Y and W-135) conjugate vaccine (MCV4P) 2021-04-30 00:00:00 Completed [facility] Meningococcal Polysaccharide (groups A, C, Y and W-135) conjugate vaccine (MCV4P) 2021-04-30 00:00:00 Completed [facility] Meningococcal Polysaccharide (groups A, C, Y and W-135) conjugate vaccine (MCV4P) 2021-04-30 00:00:00 Completed [facility] Meningococcal Polysaccharide (groups A, C, Y and W-135) conjugate vaccine (MCV4P) 2021-04-30 00:00:00 Completed [facility] Meningococcal Polysaccharide (groups A, C, Y and W-135) conjugate vaccine (MCV4P) 2021-04-30 00:00:00 Completed [facility] Meningococcal Polysaccharide (groups A, C, Y and W-135) conjugate vaccine (MCV4P) 2021-04-30 00:00:00 Completed [facility] Meningococcal Polysaccharide (groups A, C, Y and W-135) conjugate vaccine (MCV4P) 2021-04-30 00:00:00 Completed [facility] Meningococcal Polysaccharide (groups A, C, Y and W-135) conjugate vaccine (MCV4P) 2021-04-30 00:00:00 Completed [facility] Meningococcal Polysaccharide (groups A, C, Y and W-135) conjugate vaccine (MCV4P) 2021-04-30 00:00:00 Completed [facility] Meningococcal Polysaccharide (groups A, C, Y and W-135) conjugate vaccine (MCV4P) 2021-04-30 00:00:00 Completed [facility] Meningococcal Polysaccharide (groups A, C, Y and W-135) conjugate vaccine (MCV4P) 2021-04-30 00:00:00 Completed [facility] Meningococcal Polysaccharide (groups A, C, Y and W-135) conjugate vaccine (MCV4P) 2021-04-30 00:00:00 Completed [facility] Meningococcal Polysaccharide (groups A, C, Y and W-135) conjugate vaccine (MCV4P) 2021-04-30 00:00:00 Completed [facility] Meningococcal Polysaccharide (groups A, C, Y and W-135) conjugate vaccine (MCV4P) 2021-04-30 00:00:00 Completed [facility] Meningococcal Polysaccharide (groups A, C, Y and W-135) conjugate vaccine (MCV4P) 2021-04-30 00:00:00 Completed [facility] Meningococcal Polysaccharide (groups A, C, Y and W-135) conjugate vaccine (MCV4P) 2021-04-30 00:00:00 Completed [facility] Meningococcal Polysaccharide (groups A, C, Y and W-135) conjugate vaccine (MCV4P) 2021-04-30 00:00:00 Completed [facility] Meningococcal Polysaccharide (groups A, C, Y and W-135) conjugate vaccine (MCV4P) 2021-04-30 00:00:00 Completed [facility] Meningococcal Polysaccharide (groups A, C, Y and W-135) conjugate vaccine (MCV4P) 2021-04-30 00:00:00 Completed [facility] Meningococcal Polysaccharide (groups A, C, Y and W-135) conjugate vaccine (MCV4P) 2021-04-30 00:00:00 Completed [facility] Meningococcal Polysaccharide (groups A, C, Y and W-135) conjugate vaccine (MCV4P) 2021-04-30 00:00:00 Completed [facility] Meningococcal Polysaccharide (groups A, C, Y and W-135) conjugate vaccine (MCV4P) 2021-04-30 00:00:00 Completed [facility] Meningococcal Polysaccharide (groups A, C, Y and W-135) conjugate vaccine (MCV4P) 2021-04-30 00:00:00 Completed [facility] Meningococcal Polysaccharide (groups A, C, Y and W-135) conjugate vaccine (MCV4P) 2021-04-30 00:00:00 Completed [facility] Meningococcal Polysaccharide (groups A, C, Y and W-135) conjugate vaccine (MCV4P) 2021-04-30 00:00:00 Completed [facility] Meningococcal Polysaccharide (groups A, C, Y and W-135) conjugate vaccine (MCV4P) 2021-04-30 00:00:00 Completed [facility] Meningococcal Polysaccharide (groups A, C, Y and W-135) conjugate vaccine (MCV4P) 2021-04-30 00:00:00 Completed [facility] Meningococcal Polysaccharide (groups A, C, Y and W-135) conjugate vaccine (MCV4P) 2021-04-30 00:00:00 Completed [facility] Meningococcal Polysaccharide (groups A, C, Y and W-135) conjugate vaccine (MCV4P) 2021-04-30 00:00:00 Completed [facility] Meningococcal Polysaccharide (groups A, C, Y and W-135) conjugate vaccine (MCV4P) 2021-04-30 00:00:00 Completed [facility] Meningococcal Polysaccharide (groups A, C, Y and W-135) conjugate vaccine (MCV4P) Unknown Completed [facility] Meningococcal Polysaccharide (groups A, C, Y and W-135) conjugate vaccine (MCV4P) Unknown Completed [facility] Meningococcal Polysaccharide (groups A, C, Y and W-135) conjugate vaccine (MCV4P) Unknown Completed [facility] Meningococcal Polysaccharide (groups A, C, Y and W-135) conjugate vaccine (MCV4P) Unknown Completed [facility] Vital Signs Vital Name Observation Time Observation Value Comments S ource Systolic blood pressure 2023-05-18 20:37:00 123 mm[Hg] [facility] Diastolic blood pressure 2023-05-18 20:37:00 76 mm[Hg] [facility] Heart rate 2023-05-18 20:37:00 78 /min [facility] Body temperature 2023-05-18 20:37:00 37.11 Jennifer [facility] Respiratory rate 2023-05-18 20:37:00 16 /min [facility] Body height 2023-05-18 20:37:00 162.6 cm [facility] Body weight 2023-05-18 20:37:00 63.504 kg [facility] BMI 2023-05-18 20:37:00 24.03 kg/m2 [facility] Oxygen saturation in Arterial blood by Pulse oximetry 2023-05-18 20:37:00 98 /min [facility] Systolic blood pressure 2023-03-19 17:56:00 108 mm[Hg] [facility] Diastolic blood pressure 2023-03-19 17:56:00 69 mm[Hg] [facility] Heart rate 2023-03-19 17:56:00 82 /min [facility] Respiratory rate 2023-03-19 17:56:00 19 /min [facility] Body height 2023-03-19 17:56:00 162.6 cm [facility] Body weight 2023-03-19 17:56:00 64.184 kg [facility] BMI 2023-03-19 17:56:00 24.29 kg/m2 [facility] Oxygen saturation in Arterial blood by Pulse oximetry 2023-03-19 17:56:00 96 /min [facility] Systolic blood pressure 2023-03-17 17:57:00 105 mm[Hg] [facility] Diastolic blood pressure 2023-03-17 17:57:00 65 mm[Hg] [facility] Heart rate 2023-03-17 17:57:00 82 /min [facility] Body temperature 2023-03-17 17:57:00 37 Jennifer [facility] Respiratory rate 2023-03-17 17:57:00 16 /min [facility] Body height 2023-03-17 17:57:00 162.6 cm [facility] Body weight 2023-03-17 17:57:00 63.866 kg [facility] BMI 2023-03-17 17:57:00 24.17 kg/m2 [facility] Oxygen saturation in Arterial blood by Pulse oximetry 2023-03-17 17:57:00 97 /min [facility] Systolic blood pressure 2023-02-22 17:49:00 112 mm[Hg] [facility] Diastolic blood pressure 2023-02-22 17:49:00 75 mm[Hg] [facility] Heart rate 2023-02-22 17:49:00 68 /min [facility] Body temperature 2023-02-22 17:49:00 36.89 Jennifer [facility] Respiratory rate 2023-02-22 17:49:00 18 /min [facility] Body height 2023-02-22 17:49:00 162.6 cm [facility] Body weight 2023-02-22 17:49:00 62.188 kg [facility] BMI 2023-02-22 17:49:00 23.53 kg/m2 [facility] Oxygen saturation in Arterial blood by Pulse oximetry 2023-02-22 17:49:00 97 /min [facility] Systolic blood pressure 2023-02-16 20:28:00 117 mm[Hg] [facility] Diastolic blood pressure 2023-02-16 20:28:00 71 mm[Hg] [facility] Heart rate 2023-02-16 20:28:00 86 /min [facility] Body temperature 2023-02-16 20:28:00 36.06 Jennifer [facility] Respiratory rate 2023-02-16 20:28:00 18 /min [facility] Body height 2023-02-16 20:28:00 162.6 cm [facility] weight 2023-02-16 20:28:00 62.732 kg [facility] BMI 2023-02-16 20:28:00 23.74 kg/m2 [facility] Oxygen saturation in Arterial blood by Pulse oximetry 2023-02-16 20:28:00 97 /min [facility] Systolic blood pressure 2023-02-04 19:54:00 121 mm[Hg] [facility] Diastolic blood pressure 2023-02-04 19:54:00 80 mm[Hg] [facility] Heart rate 2023-02-04 19:54:00 82 /min [facility] Respiratory rate 2023-02-04 19:54:00 18 /min [facility] Body height 2023-02-04 19:54:00 162.6 cm [facility] Body weight 2023-02-04 19:54:00 61.871 kg [facility] BMI 2023-02-04 19:54:00 23.41 kg/m2 [facility] Oxygen saturation in Arterial blood by Pulse oximetry 2023-02-04 19:54:00 97 /min [facility] Systolic blood pressure 2023-02-03 21:34:00 137 mm[Hg] [facility] Diastolic blood pressure 2023-02-03 21:34:00 78 mm[Hg] [facility] Heart rate 2023-02-03 21:34:00 76 /min [facility] Body temperature 2023-02-03 21:34:00 36.67 Jennifer [facility] Respiratory rate 2023-02-03 21:34:00 16 /min [facility] Body weight 2023-02-03 21:34:00 61.689 kg [facility] Oxygen saturation in Arterial blood by Pulse oximetry 2023-02-03 21:34:00 98 /min [facility] Systolic blood pressure 2022-11-10 18:54:00 119 mm[Hg] [facility] Diastolic blood pressure 2022-11-10 18:54:00 79 mm[Hg] [facility] Heart rate 2022-11-10 18:54:00 78 /min [facility] Body temperature 2022-11-10 18:54:00 36.22 Jennifer [facility] Body height 2022-11-10 18:54:00 162.6 cm [facility] Body weight 2022-11-10 18:54:00 63.005 kg [facility] BMI 2022-11-10 18:54:00 23.84 kg/m2 [facility] Systolic blood pressure 2022-10-26 23:20:00 127 mm[Hg] [facility] Diastolic blood pressure 2022-10-26 23:20:00 74 mm[Hg] [facility] Heart rate 2022-10-26 23:20:00 82 /min [facility] Body temperature 2022-10-26 23:20:00 37.11 Jennifer [facility] Respiratory rate 2022-10-26 23:20:00 17 /min [facility] Body height 2022-10-26 23:20:00 162.6 cm [facility] Body weight 2022-10-26 23:20:00 62.687 kg [facility] BMI 2022-10-26 23:20:00 23.72 kg/m2 [facility] Oxygen saturation in Arterial blood by Pulse oximetry 2022-10-26 23:20:00 99 /min [facility] Systolic blood pressure 2022-10-13 21:06:00 124 mm[Hg] [facility] Diastolic blood pressure 2022-10-13 21:06:00 85 mm[Hg] [facility] Heart rate 2022-10-13 21:06:00 72 /min [facility] Body temperature 2022-10-13 21:06:00 36.5 Jennifer [facility] Body height 2022-10-13 21:06:00 162.6 cm [facility] Body weight 2022-10-13 21:06:00 63.776 kg [facility] BMI 2022-10-13 21:06:00 24.13 kg/m2 [facility] Systolic blood pressure 2022-09-18 15:34:00 120 mm[Hg] [facility] Diastolic blood pressure 2022-09-18 15:34:00 66 mm[Hg] [facility] Heart rate 2022-09-18 15:34:00 76 /min [facility] Body temperature 2022-09-18 15:34:00 36.72 Jennifer [facility] Respiratory rate 2022-09-18 15:34:00 18 /min [facility] Body height 2022-09-18 15:34:00 162.6 cm [facility] Body weight 2022-09-18 15:34:00 65.772 kg [facility] BMI 2022-09-18 15:34:00 24.89 kg/m2 [facility] Oxygen saturation in Arterial blood by Pulse oximetry 2022-09-18 15:34:00 99 /min [facility] Systolic blood pressure 2022-09-16 16:52:00 129 mm[Hg] [facility] Diastolic blood pressure 2022-09-16 16:52:00 82 mm[Hg] [facility] Heart rate 2022-09-16 16:52:00 83 /min [facility] Body temperature 2022-09-16 16:52:00 37.06 Jennifer [facility] Respiratory rate 2022-09-16 16:52:00 18 /min [facility] Body height 2022-09-16 16:52:00 162.6 cm [facility] Body weight 2022-09-16 16:52:00 65.772 kg [facility] BMI 2022-09-16 16:52:00 24.89 kg/m2 [facility] Oxygen saturation in Arterial blood by Pulse oximetry 2022-09-16 16:52:00 97 /min [facility] Systolic blood pressure 2022-07-26 22:46:00 118 mm[Hg] [facility] Diastolic blood pressure 2022-07-26 22:46:00 63 mm[Hg] [facility] Heart rate 2022-07-26 22:46:00 85 /min [facility] Body temperature 2022-07-26 22:46:00 37 Jennifer [facility] Respiratory rate 2022-07-26 22:46:00 16 /min [facility] Body height 2022-07-26 22:46:00 162.6 cm [facility] Body weight 2022-07-26 22:46:00 65.318 kg [facility] BMI 2022-07-26 22:46:00 24.72 kg/m2 [facility] Oxygen saturation in Arterial blood by Pulse oximetry 2022-07-26 22:46:00 99 /min [facility] Systolic blood pressure 2022-06-08 18:22:00 102 mm[Hg] [facility] Diastolic blood pressure 2022-06-08 18:22:00 67 mm[Hg] [facility] Heart rate 2022-06-08 18:22:00 73 [facility] 2022-06-08 18:22:00 162.6 cm [facility] Body weight 2022-06-08 18:22:00 63.957 kg [facility] BMI 2022-06-08 18:22:00 24.20 kg/m2 [facility] Procedures Procedure Date / Time Performed Performing Clinician Source ASSIGNMENT OF BENEFITS 2023-05-18 21:10:43 Docto r Unassigned, [place] [facility] CONSENT/REFUSAL FOR DIAGNOSIS AND TREATMENT 2023-05-18 20:25:38 Doctor Unassigned, [place] [facility] XR FOOT 3+ VW RIGHT 2023-03-17 18:47:37 Irene Mcclendon [facility] FREE T4 2023-02-04 20:39:00 Godfrey Mims [facility] THYROID STIMULATING HORMONE 2023-02-04 20:39:00 Godfrey Mims [facility] COMP. METABOLIC PANEL (73488) 2023-02-04 20:39:00 Godfrey Mims [facility] LIPID PANEL ([id number])(TOTAL CHOLESTEROL, TRIGLYCERIDES, HDL) 2023-02-04 20:39:00 Godfrey Mims [facility] CBC WITH DIFF 2023-02-04 20:39:00 Godfrey Mims [facility] GLYCOSYLATED HEMOGLOBIN (A1C) 2023-02-04 20:39:00 Godfrey Mims [facility] URINALYSIS 2023-02-04 20:39:00 Godfrey Mims [facility] HCV ANTIBODY 2023-02-04 20:39:00 [facility]ims [facility] PATIENT FINANCIAL POLICY 2023-02-03 21:15:52 Doctor Unassigned, [place] [facility] POCT MOLECULAR FLU 2022-10-26 23:40:00 Unknown, Attend ing [facility] POCT MOLECULAR STREP 2022-10-26 23:36:00 Unknown, Atte sarahi [facility] POCT MOLECULAR STREP 2022-09-18 15:39:00 Unknown, Attstephanie mcclain [facility] REFERRAL- REQUEST/RESPONSE 2022-06-25 05:01:00 Doctor Unassigned, [place] [facility] XR LUMBAR SPINE 3 VW 2022-06-10 16:57:35 Requisition, Paper [facility] ASSIGNMENT OF BENEFITS 2022-06-08 18:16:31 Docto r Unassigned, [place] [facility] Encounters Start Date/Time End Date/Time Encounter Type Admission Type Attending Clinicians Care Facility Care Department Encounter ID Source 2022-06-24 10:00:00 Inpatient JM DAVIS [facility] [id number] [facility] 2024-01-28 00:00:00 2024-03-04 18:23:49 Patient Secure Msg Doctor Unassigned, [place] [facility] 1.2.840.114 350.1.13.10 4.2.7.2.686 [id number] [facility] 2023-11-28 00:00:00 2023-11-28 00:00:00 Telephone Godfrey Mims [facility] 1.2.840.114 350.1.13.10 4.2.7.2.686 [id number] [facility] 2023-08-26 10:00:00 2023-08-26 10:00:00 Outpatient R GODFREY MIMS [facility] [id number] [facility] 2023-05-18 15:38:00 2023-05-18 17:54:00 Emergency X JASPAL RICCI [facility] ERT [id number] [facility] 2023-05-18 15:38:00 2023-05-18 17:54:00 Emergency PatyJaspal connell [facility] 1..840.114 350.1.13.10 4.2.7.2.686 [id number] [facility] 2023-05-17 15:20:00 2023-05-17 15:20:00 Outpatient R ROSALINDA AVELAR [facility] [id number] [facility] 2023-04-01 09:45:00 2023-04-01 09:45:00 Outpatient R CASSIE JOSHI [facility] [id number] [facility] 2023-03-19 13:00:00 2023-03-19 13:43:10 Outpatient R GODFREY MIMS [facility] [id number] [facility] 2023-03-19 13:00:00 2023-03-19 13:43:10 Office Visit Godfrey Mims [facility] 1..840.114 350.1.13.10 4.2.7.2.686 [id number] [facility] 2023-03-17 13:02:40 2023-03-17 23:59:00 Outpatient R JUANITA MCCLENDON [facility] [id number] [facility] 2023-03-17 13:02:40 2023-03-17 23:59:00 Hospital Encounter Juanita Mcclendon [facility] 1..840.114 350.1.13.10 4.2.7.2.686 [id number] [facility] 2023-03-17 12:40:00 2023-03-17 13:57:04 Urgent Care Juanita Mcclendon, Attending [facility] 1..840.114 350.1.13.10 4.2.7.2.686 [id number] [facility] 2023-03-11 10:00:00 2023-03-11 10:00:00 [id number] [facility] 2023-03-08 11:30:00 2023-03-08 11:30:00 Outpatient R PRASANNA GODFREY [facility] [id number] [facility] 2023-02-23 09:30:00 2023-02-23 09:30:00 Outpatient [facility] [id number] [facility] 2023-02-22 13:00:00 2023-02-22 13:21:43 Outpatient R PRASANNA GODFREY [facility] [id number] [facility] 2023-02-22 13:00:00 2023-02-22 13:21:43 Office Visit Prasanna Godfrey [facility] 1..840.114 350.1.13.10 4.2.7.2.686 [id number] [facility] 2023-02-16 15:40:00 2023-02-16 16:00:00 [facility] 1..840.114 350.1.13.10 4.2.7.2.686 [id number] [facility] 2023-02-16 15:40:00 2023-02-16 15:40:00 Outpatient R [facility] [id number] [facility] 2023-02-16 00:00:00 2023-02-16 00:00:00 Telephone Godfrey Mims [facility] 1.2.840.114 350.1.13.10 4.2.7.2.686 [id number] [facility] 2023-02-09 00:00:00 2023-02-09 00:00:00 Patient Outreach Consuelo Lee [facility] 1.2.840.114 350.1.13.10 4.2.7.2.686 [id number] [facility] 2023-02-05 00:00:00 2023-02-05 00:00:00 Telephone Godfrey Mims [facility] 1.2.840.114 350.1.13.10 4.2.7.2.686 [id number] [facility] 2023-02-04 15:45:00 2023-02-04 23:59:00 Hospital Encounter Godfrey Mims [facility] 1.2.840.114 350.1.13.10 4.2.7.2.686 [id number] [facility] 2023-02-04 16:00:00 2023-02-04 16:15:00 Java Grails Developer Visit 2, Adc Lab Godfrey Mims [facility] 1.2.840.114 350.1.13.10 4.2.7.2.686 [id number] [facility] 2023-02-04 15:00:00 2023-02-04 15:22:29 Outpatient R GODFREY MIMS [facility] [id number] [facility] 2023-02-04 15:00:00 2023-02-04 15:22:29 Office Visit Godfrey Mims [facility] 1.2.840.114 350.1.13.10 4.2.7.2.686 [id number] [facility] 2023-02-03 16:15:00 2023-02-03 16:35:00 Nurse Visit Nurse, Erik Quinteros [facility] Unknown, Attending Phillip Mimsssica [facility] 1.840.114 350.1.13.10 4.2.7.2.686 [id number] [facility] 2023-02-03 16:15:00 2023-02-03 16:15:00 Outpatient Yamilex [facility] [id number] [facility] 2023-02-03 00:00:00 2023-02-03 00:00:00 Orders Only Doctor Unassigned, [place] [facility] 1.840.114 350.1.13.10 4.2.7.2.686 [id number] [facility] 2022-12-15 11:00:00 2022-12-15 11:00:00 Outpatient R [facility] [id number] [facility] 2022-11-30 10:15:00 2022-11-30 10:15:00 Outpatient CHRISTINA IGLESIAS [facility] [id number] [facility] 2022-11-10 13:00:00 2022-11-10 14:10:53 Outpatient CHRISTINA IGLESIAS [facility] [id number] [facility] 2022-11-10 13:00:00 2022-11-10 14:10:53 Office Visit Christina Estrella [facility] 1.840.114 350.1.13.10 4.2.7.2.686 [id number] [facility] 2022-10-27 00:00:00 2022-10-27 00:00:00 Letter (Out) Misael Thornton [facility] 1..114 350.1.13.10 4.2.7.2.686 [id number] [facility] 2022-10-26 17:20:00 2022-10-26 17:53:20 Outpatient R RAGHAV PARKER [facility] [id number] [facility] 2022-10-26 17:20:00 2022-10-26 17:53:20 Urgent Care Raghav Parker Unknown, Attending [facility] 1.84.114 350.1.13.10 4.2.7.2.686 [id number] [facility] 2022-10-26 00:00:00 2022-10-26 00:00:00 Telephone Christina Estrella Varghese [facility] 1.84.114 350.1.13.10 4.2.7.2.686 [id number] [facility] 2022-10-19 10:54:54 2022-10-19 23:59:00 [facility] [id number] [facility] 2022-10-19 10:54:54 2022-10-19 23:59:00 [facility] ..114 350.1.13.10 4.2.7.2.686 [id number] [facility] 2022-10-14 00:00:00 2022-10-14 00:00:00 Telephone Christina Estrella [facility] 1.84.114 350.1.13.10 4.2.7.2.686 [id number] [facility] 2022-10-13 15:08:19 2022-10-13 23:59:00 Hospital Encounter Christina Estrella [facility] 1.840.114 350.1.13.10 4.2.7.2.686 [id number] [facility] 2022-10-13 15:10:00 2022-10-13 16:09:53 Outpatient R CHRISTINA ESTRELLA [facility] [id number] [facility] 2022-10-13 15:10:00 2022-10-13 16:09:53 Office Visit Christina Estrella [facility] 1.840.114 350.1.13.10 4.2.7.2.686 [id number] [facility] 2022-09-18 09:40:00 2022-09-18 10:00:58 Outpatient R FRANK ANDRES [facility] [id number] [facility] 2022-09-18 09:40:00 2022-09-18 10:00:58 Urgent Care Frank Andres, Attending [facility] 1.84.114 350.1.13.10 4.2.7.2.686 [id number] [facility] 2022-09-18 00:00:00 2022-09-18 00:00:00 Letter (Out) Frank Andres [facility] 1.284.114 350.1.13.10 4.2.7.2.686 [id number] [facility] 2022-09-16 10:40:00 2022-09-16 11:00:00 Urgent Care Cassie Mcclelland Unknown, Attending [facility] 1.84.114 350.1.13.10 4.2.7.2.686 [id number] [facility] 2022-09-16 10:40:00 2022-09-16 10:40:00 Outpatient R CASSIE MCCLELLAND III [facility] [id number] [facility] 2022-09-16 00:00:00 2022-09-16 00:00:00 Letter (Out) Cassie Mcclelland [facility] 1..840.114 350.1.13.10 4.2.7.2.686 [id number] [facility] 2022-07-26 16:40:00 2022-07-26 17:08:58 Outpatient R HILL ESPINOZA [facility] [id number] [facility] 2022-07-26 16:40:00 2022-07-26 17:08:58 Urgent Care Hill Espinoza Unknown, Attending [facility] 1..840.114 350.1.13.10 4.2.7.2.686 [id number] [facility] 2022-07-26 00:00:00 2022-07-26 00:00:00 Letter (Out) Hill Espinoza [facility] 1..840.114 350.1.13.10 4.2.7.2.686 [id number] [facility] 2022-07-10 10:27:00 2022-07-10 10:27:00 Outpatient JM DAVIS [facility] [id number] [facility] 2022-07-03 00:00:00 2022-07-03 00:00:00 Patient Secure Msg Doctor Unassigned, [place] [facility] 1..840.114 350.1.13.10 4.2.7.2.686 [id number] [facility] 2022-06-25 00:00:00 2022-06-25 00:00:00 Orders Only Doctor Unassigned, [place] [facility] 1.2840.114 350.1.13.10 4.2.7.2.686 [id number] [facility] 2022-06-10 11:33:47 2022-06-10 23:59:00 Outpatient R RADIOLOGY [facility] [id number] [facility] 2022-06-10 11:30:00 2022-06-10 23:59:00 Hospital Encounter Radiology [facility] 1.2840.114 350.1.13.10 4.2.7.2.686 [id number] [facility] 2022-06-10 10:45:00 2022-06-10 11:00:00 Java Grails Developer Visit 1, Adc Lab AmykirbyDereck [facility] 1..114 350.1.13.10 4.2.7.2.686 [id number] [facility] 2022-06-09 09:15:00 2022-06-09 09:15:00 Outpatient CASSIE WHITE [facility] [id number] [facility] 2022-06-09 09:15:00 2022-06-09 09:15:00 Java Grails Developer Visit Lab, Cassie Felix [facility] 1.84.114 350.1.13.10 4.2.7.2.686 [id number] [facility] 2022-06-08 13:30:00 2022-06-08 13:45:00 [facility] 1.2840.114 350.1.13.10 4.2.7.2.686 [id number] [facility] 2022-06-08 13:30:00 2022-06-08 13:30:00 Outpatient R CASSIE JOSHI [facility] [id number] [facility] 2022-06-08 00:00:00 2022-06-08 00:00:00 Orders Only Doctor Unassigned, [place] [facility] 1..840.114 350.1.13.10 4.2.7.2.686 [id number] [facility] 2021-10-30 18:00:00 2021-10-30 18:00:00 Outpatient R [facility] [id number] [facility] 2021-05-16 15:15:00 2021-05-16 15:15:00 Outpatient R KAYE WU [facility] [id number] [facility] 2021-05-16 14:05:16 2021-05-16 14:20:16 Laboratory Only Only, Adc Pob2 Test Kaye Wu [facility] 1..840.114 350.1.13.10 4.2.7.2.686 [id number] [facility] 2021-05-09 15:49:54 2021-05-09 15:54:14 Laboratory Only Only, Adc Pob2 Test Bert Toscano [facility] 1..840.114 350.1.13.10 4.2.7.2.686 [id number] [facility] 2021-05-09 15:45:00 2021-05-09 15:45:00 Outpatient R BERT TOSCANO [facility] [id number] [facility] 2021-05-07 00:00:00 2021-05-07 00:00:00 Telephone Cassie Joshi [facility] 1..840.114 350.1.13.10 4.2.7.2.686 [id number] [facility] 2021-05-05 15:45:00 2021-05-05 15:45:00 Outpatient CASSIE WHITE [facility] [id number] [facility] 2021-05-01 00:00:00 2021-05-01 00:00:00 Patient Secure Msg Doctor Unassigned, [place] [facility] 1.2.840.114 350.1.13.10 4.2.7.2.686 [id number] [facility] 2021-04-30 15:00:00 2021-04-30 15:00:00 Outpatient Yamilex KELLYFABIEN CASSIE [facility] [id number] [facility] 2021-04-25 13:00:00 2021-04-25 13:00:00 Outpatient CHRISTY BERGMAN [facility] [id number] [facility] 2021-04-23 11:00:00 2021-04-23 11:00:00 Outpatient ABA COREY [facility] [id number] [facility] 2021-04-19 12:00:00 2021-04-19 12:00:00 Outpatient RAGHAV DU [facility] [id number] [facility] Results Test Description Test Time Test Comments Results Result Co mments Source [facility] MOLECULAR [id number] 23:43:19* Test Item Value Reference Range Interpretation Comme nts POCT Molecular Strep (test c ode = 16368-6) Negative Negative Lab Interpretation (test cod e = 08524-0) Normal [facility] MOLECULAR [id number] 15:46:57* Test Item Value Reference Range Interpretation Comme nts POCT Molecular Strep (test c ode = 56817-6) Negative Negative Lab Interpretation (test cod e = 68594-7) Normal [facility] Notes Date/Time Note Provider Source 2023-11-29 10:09:30 Refills sent On license of [facility] 2023-11-29 08:22:44 Routing to provider. Last sent on 02-22-2023 RAGHU 03-19-2023 NOV 05-02-2024 Raghav Bhatt MA [facility] 2023-11-28 19:13:15 Stefan Duran is a 23 year old male Patient calling for refill of busiprone and his inhaler. Please advise. December Tommie [facility] 2023-05-18 17:54:29 Formatting of this n ote might be different from the original. Pt seen by provider and deemed non-emergent. Medical screening completed. Vital signs stable, AO4, no ataxia, gait steady on departure and appears in no distress. Jenni Meredith RN [facility] 2023-05-18 15:35:45 Formatting of this n ote might be different from the original. Patient here for work note. Missed work on Wednesday. Anoop Martinez RN [facility]
== END 2024-04-27 11:34 | disposition home or self-care (01) ==
LOC: ER 10:08
DX: R58 Hemorrhage, not elsewhere classified (principal); Z87.891 Personal history of nicotine dependence; Z91.012 Allergy to eggs; Z91.018 Allergy to other foods
CPT/HCPCS: 36415; 74177; 80053; 83690; 85025; 85610; 99284; Q9967